=== PATIENT | male | born 1955 | race Caucasian/White ===

== ENCOUNTER 2020-03-25 10:45 | Outpatient (REF) | payer MEDICARE, SELFPAY | END 2020-03-25 10:46 | disposition home or self-care (01) | LOC: HO.LAB 10:45 | PROVIDERS: PCP Internal Medicine; Visit Provider Internal Medicine | DX: Z20.828 Contact with and (suspected) exposure to other viral communicable diseases (principal) | CPT/HCPCS: C9803; U0003 ==

== ENCOUNTER 2021-05-25 15:17 | Emergency (ER) | payer MEDICARE, SELFPAY ==
--- NOTE | ~2021-05-25 | XR_ITS ---
EXAMINATION: XR LUMBOSACRAL SPINE CLINICAL INFORMATION: Back injury COMPARISON: None TECHNIQUE: Three views of the lumbosacral spine. FINDINGS: No acute fracture or malalignment. Mild levoconvex lumbar scoliosis, apex left at L2-L3. Moderate loss of disc space height at L1-L2, L2-L3 and L4-L5 with accompanying endplate sclerosis. Prominent osteophytes present throughout the lumbar spine. Mild bilateral sacroiliac arthrosis. Paraspinal soft tissues unremarkable. XR/XR lumbar spine 2-3V IMPRESSION: No acute findings. Lumbar spondylosis as described.
--- NOTE | ~2021-05-25 | XR_ITS ---
EXAMINATION: XR PELVIS CLINICAL INFORMATION: Pain. Fell on ice 5 days ago. COMPARISON: Right hip radiograph dated 07/04/2017 TECHNIQUE: AP view of the pelvis. FINDINGS: Mild osteoarthritis in both hips with marginal osteophytes and nonuniform joint space narrowing. Comment deformities are noted. No acute fracture or malalignment on these images. 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 Phleboliths are present in the central pelvis. XR/XR pelvis 1-2V IMPRESSION: No acute fracture or malalignment in the pelvis. Mild osteoarthritis in the hips.
[2021-05-25 15:42] VITALS: BP 130/72; PULSE 58; RESP 18; TEMP 36.8; O2SAT 98; BMI 24.4
--- NOTE | 2021-05-25 17:13 | ED.FALL ---
HPI - Fall General Chief Complaint: Fall Stated Complaint: fell on ice back inj Time Seen by Provider: 05/25/21 17:13 Source: patient Mode of arrival: ambulatory Limitations: no limitations History of Present Illness HPI Narrative: 66 yo male healthy here with complaints of slip and fall on ice last . No head strike or LOC. Landed on right buttocks. Having pain since. No radiation of pain. No numbness, tingling, saddle anesthesia, bowel or bladder incontinence. No fevers, chills Related Data Previous Rx's Medication Instructions Recorded cyclobenzaprine 10 mg tablet 10 mg PO TID PRN #10 tab 05/25/21 lidocaine 5 % topical patch 1 patch TOPICAL DAILY #15 ea 05/25/21 (Lidoderm) Allergies Allergy/AdvReac Type Severity Reaction Status Date / Time No Known Allergies Allergy Verified 05/25/21 17:12 [No Known Allergies*] Review of Systems Review of Systems: Yes all other systems are reviewed and are negative Constitutional: Constitutional: Reports no additional constitutional complaints, Denies body ache(s), Denies chills, Denies fever(s), Denies headache(s) and Denies weakness Eyes: Eyes: Reports no additional eye complaints and Denies change in vision ENT: Reports system reviewed and no additional complaints, except as documented, Denies dizziness, Denies headache(s), Denies nasal congestion, Denies nasal discharge and Denies neck pain Cardiovascular: Cardiovascular: Reports no additional cardiovascular complaints, Denies chest pain, Denies leg edema and Denies dyspnea Respiratory: Respiratory: Reports no additional respiratory complaints, Denies cough and Denies dyspnea Gastrointestinal: Gastrointestinal: Reports no additional gastrointestinal complaints, Denies abdominal pain, Denies diarrhea, Denies nausea and Denies vomiting Genitourinary: Genitourinary: Denies urinary incontinence Musculoskeletal: Musculoskeletal: Reports no additional musculoskeletal complaints, Reports back pain, Denies arthralgias, Denies joint swelling, Denies neck pain, Denies numbness and Denies tingling Integumentary/Breasts: Skin/Breast: Reports system reviewed and no additional complaints, except as docu and Denies rash Neurologic: Reports system reviewed and no additional complaints, except as documented, Denies Abnormal speech present, Denies dizziness, Denies headache(s), Denies numbness, Denies tingling and Denies weakness FOR[facility]LY [facility] Past Medical History Attestation statement: The following information was validated with the patient. Source: old records reviewed and nursing notes reviewed Social History Social History Advance Directives: No Advance Directives Information Provided: No Physical Exam Vital Signs: Vital Signs: Last Vital Signs Temp 98.2 F 05/25/21 15:42 Pulse 58 05/25/21 15:42 Resp 18 05/25/21 15:42 BP 130/72 05/25/21 15:42 Pulse Ox 98 05/25/21 15:42 BMI result Body Mass Index 24.4 Const: General: cooperative, healthy appearing, comfortable and no acute distress Orientation/consciousness: patient oriented x3 Limitations: no limitations HENMT: Head: Yes normal to inspection Ears: hearing grossly normal bilaterally General nose exam: Normal external nose present Face and sinus: Yes normal facial exam Mouth: Normal oral and palatal mucosa present Throat: Yes posterior oropharynx normal Eyes: General: appearance normal, both eyes and all related structures Pupils: Equal, round and reactive pupils present Neck: Neck: Yes normal visual inspection Chest: Chest palpation & inspection: normal inspection of the chest Resp: Effort & Inspection: normal respiratory effort Auscultation: clear to auscultation bilaterally Cardio: Rate: regular rate Rhythm: regular rhythm Peripheral pulses: Peripheral pulses 2+ throughout GI: Inspection: Yes normal to inspection Palpation (GI): Soft to palpation and nontender Auscultation: normal bowel sounds : General: Yes no CVA tenderness Back/Spine/Pelvis: Other: no midline lumbar tenderness, step offs or deformities Pain worsened with straight leg raise Back: no CVA tenderness Thoracic/Lumbar Spine: thoracic and lumbar spine normal to inspection Sacroiliac joints: on the right tender to palpation and by passive hyperextension of lower ext Skin: General skin exam: no rashes or lesions noted Neuro: General: patient oriented x3, no focal motor deficits and normal sensation to monofilament Cranial nerves: Yes CN's II-XII intact bilaterally, Yes Equal, round and reactive pupils present, Yes Bilaterally intact EOM present, Yes Nystagmus not present, Yes Normal facial strength present and Yes Midline tongue present Cognition (Neuro): normal cognition Speech: No Abnormal speech present Gait exam (Neuro): Normal gait present Motor exam (neuro): 5/5 motor strength present throughout Sensory Exam: Normal double simultaneous stimulation for sensation Deep tendon reflexes (DTR's): Right patellar reflex intensity grade: 2+ and Left patellar reflex intensity grade: 2+ Coordination: [id number] test normal, [id number] test normal and tandem gait normal Extrem: General: Yes normal to inspection Course Course Course Narrative: 66yo male here with right lower back pain after slip and fall. No head strike or LOC. Will check x-rays. 1914-x-ray show no bony abnormalities. Likely contusion. Reviewed worrisome signs and symptoms of when to return to the emergency department. Comfortable discharge home. MDM - Fall Medical Records Attestation: I reviewed the patient's medical records. Lab Data Attestation: I reviewed the patient's lab results. Imaging Data lumbar x-ray: Attestation: I personally reviewed and interpreted this imaging study as follows: Radiologist's impression: [address] [address] XRay Report Signed Patient: Hank Naqvi MR#: [id number] : 1955 Acct:[id number] Age/Sex: 66 / M ADM Date: 05/25/21 Loc: HO.ED Attending Dr: Ordering Physician: Annetta ED Physician Date of Service: 05/25/21 Procedure(s): XR lumbar spine 2-3V Accession Number(s): [id number] cc: Generic ED Physician~ EXAMINATION: XR LUMBOSACRAL SPINE CLINICAL INFORMATION: Back injury COMPARISON: None TECHNIQUE: Three views of the lumbosacral spine. FINDINGS: No acute fracture or malalignment. Mild levoconvex lumbar scoliosis, apex left at L2-L3. Moderate loss of disc space height at L1-L2, L2-L3 and L4-L5 with accompanying endplate sclerosis. Prominent osteophytes present throughout the lumbar spine. Mild bilateral sacroiliac arthrosis. Paraspinal soft tissues unremarkable. XR/XR lumbar spine 2-3V IMPRESSION: No acute findings. Lumbar spondylosis as described. pelvis x-ray: Attestation: I personally reviewed and interpreted this imaging study as follows: Radiologist's impression: [address] [address] XRay Report Signed Patient: Hank Naqvi MR#: [id number] : 1955 Acct:[id number] Age/Sex: 66 / M ADM Date: 05/25/21 Loc: HO.ED Attending Dr: Ordering Physician: Darcie Keller NP Date of Service: 05/25/21 Procedure(s): XR pelvis 1-2V Accession Number(s): [id number] cc: Darcie Keller NP~ EXAMINATION: XR PELVIS CLINICAL INFORMATION: Pain. Fell on ice 5 days ago.? COMPARISON: Right hip radiograph dated 07/04/2017? TECHNIQUE: AP view of the pelvis. FINDINGS: Mild osteoarthritis in both hips with marginal osteophytes and nonuniform joint space narrowing. Comment deformities are noted. No acute fracture or malalignment on these images. 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 Phleboliths are present in the central pelvis.? XR/XR pelvis 1-2V IMPRESSION: No acute fracture or malalignment in the pelvis. ? Mild osteoarthritis in the hips. Discharge Plan Discharge Clinical Impression: Back contusion Qualifiers: Encounter type: initial encounter Laterality: right Qualified Code(s): S20.221A - Contusion of right back wall of thorax, initial encounter Patient Disposition: Home, Self-Care Instructions: Contusion in Adults (ED), Lower Back Exercises (ED) Additional Instructions: X-ray show no bony abnormality Ice to the area Gentle stretching Follow-up with Doctor in 1 week for continued symptoms Continued Motrin Prescriptions: New lidocaine [Lidoderm] 5 % adhesive patch,medicated 1 patch topical DAILY Qty: 15 RF: 0 cyclobenzaprine 10 mg tablet 10 mg PO TID PRN (Reason: muscle spasm) Qty: 10 RF: 0 Referrals: Frank Murphy MD [Primary Care Provider] - 2 days Interventions: ED Discharge Assessment Last Done: 05/25/21 18:45 Discharge Date/Time: 05/25/21 18:46
== END 2021-05-25 18:46 | disposition home or self-care (01) ==
PROVIDERS: Emergency Provider Emergency Medicine; PCP Internal Medicine
DX: S20.221A Contusion of right back wall of thorax, initial encounter (principal); W00.0XXA Fall on same level due to ice and snow, initial encounter; Y93.01 Activity, walking, marching and hiking; Y92.9 Unspecified place or not applicable; Y99.9 Unspecified external cause status
CPT/HCPCS: 72100; 72170; 99283

== ENCOUNTER 2021-07-13 09:36 | Outpatient (REF) | payer MEDICARE, SELFPAY ==
--- NOTE | ~2021-07-13 | XR_ITS ---
EXAMINATION: XR TIBIA AND FIBULA, LEFT CLINICAL INFORMATION: This is a 66-year-old male with disorders of bone, lower leg. COMPARISON: Comparison is made to a knee study dated 02/23/2016. TECHNIQUE: AP and lateral views of the left tibia and fibula were obtained. Medial compartment joint space narrowing within the left knee. Marginal osteophytes in all 3 compartments. Small effusion. No fracture or malalignment. There is benign-appearing linear calcification in the soft tissues in the mid calf. No fracture or dislocation is seen. There is nonspecific minimal soft tissue thickening anterior to the tibia in the upper calf. No calcification is seen in this region. Etiology for this thickening is unclear. The adjacent bone appears within normal limits. XR/XR tibia fibula LT 2V IMPRESSION: 1. Tricompartment arthritis left knee which is progressed when compared to the previous study. Moderate medial compartment arthritis. 2. There is nonspecific asymmetric thickening in the soft tissues anterior to the proximal tibia of uncertain etiology. A follow-up study to demonstrate resolution is recommended. This may be possible to follow with ultrasound.
== END 2021-07-13 09:37 | disposition home or self-care (01) ==
LOC: HO.XRAY 09:36
PROVIDERS: Absent Provider Internal Medicine; PCP Internal Medicine; Visit Provider Family Medicine
DX: M89.8X6 Other specified disorders of bone, lower leg (principal)
CPT/HCPCS: 73590

== ENCOUNTER 2021-08-06 13:56 | Outpatient (REF) | payer MEDICARE, SELFPAY ==
--- NOTE | ~2021-08-06 | US_ITS ---
EXAMINATION: ULTRASOUND EXTREMITY NONVASCULAR CLINICAL INFORMATION: Left thornton COMPARISON: Previous lower leg x-ray July 2021 TECHNIQUE: Grayscale and color imaging of the soft tissues of the left thornton using a linear transducer FINDINGS: There is a complex fluid collection seen deep to the skin measuring 4 x 1 x 0.9 cm. This is nonvascular. If there is history of trauma, this may represent a liquefying hematoma. Differential would include an abscess. US/US extremity nonvascular IMPRESSION: 4 x 1 x 0.9 cm complex fluid collection lesion. This may represent a liquefying hematoma if there is history of trauma. Differential would include an abscess.
== END 2021-08-06 13:57 | disposition home or self-care (01) ==
LOC: HO.HMGCX 13:56
PROVIDERS: Visit Provider Internal Medicine
DX: R22.42 Localized swelling, mass and lump, left lower limb (principal)
CPT/HCPCS: 76882

== ENCOUNTER 2022-08-12 09:47 | Outpatient (REF) | payer MEDICARE, SELFPAY ==
[2022-08-12 11:44] LABS: Anion Gap 10 (12-20); Blood Urea Nitrogen 19 mg/dL (9-16); Calcium 8.8 mg/dL (8.4-10.2); Carbon Dioxide 25 mmol/L (22-29); Chloride 111 mmol/L (96-108); Estimated Glomerular Filt Rate > 60; Glucose Random 95 mg/dL (60-115); Potassium 4.7 mmol/L (3.3-5.1); Sodium 141 mmol/L (135-145)
[2022-08-12 12:04] LABS: TSH reflex Free T4 1.47 uIU/mL (0.32-4.0)
== END 2022-08-12 09:48 | disposition home or self-care (01) ==
LOC: HO.LAB 09:47
PROVIDERS: PCP Internal Medicine; Referring Provider Internal Medicine; Visit Provider Internal Medicine Cardiovascular Disease
DX: R00.2 Palpitations (principal)
CPT/HCPCS: 36415; 80048; 84443; 93005; 99202

== ENCOUNTER → 2022-08-23 10:49 | Outpatient (REF) | payer MEDICARE, SELFPAY ==
--- NOTE | 2022-08-23 10:53 | CA_ITS ---
Transthoracic Echocardiogram Amended Patient (Last, First, Middle): Hank Naqvi, Gender: Male Date of : 1955 Age: 67 Procedure Date: 08/23/2022 Procedure Type: Transthoracic Echocardiogram Location: OP Height: 182.88 cm Weight: 83.92 kg BSA: 2.06 m2 Heart Rate: bpm BP: 138 / 82 mmHg Drilling Machine Operator: TO Referring MD: Dejan Velasquez MD Symptoms: R00.2 - Palpitations Study Quality: Fair ECG Rhythm: Sinus Conclusions: - The left ventricular systolic function is normal. The calculated ejection fraction is 68% by biplane method. - The left atrium is moderately dilated. - No obvious valvular pathology seen on this study. - There is mild dilatation of the ascending aorta measuring 4.10 cm. Findings Left Ventricle Normal left ventricular cavity size. The left ventricular systolic function is normal. The calculated ejection fraction is 68% by biplane method. There is no evidence of regional wall motion abnormalities. Diastolic function is normal for age. There is mild septal asymmetric hypertrophy. LV peak GLS 17.7%. Right Ventricle Normal right ventricular cavity size and systolic function. Atria The left atrium is moderately dilated. The right atrium is normal in size. Aortic Valve There is a normal trileaflet aortic valve. There is no aortic valve stenosis. There is no aortic valve regurgitation. Mitral Valve The mitral valve appears normal. There is trace mitral valve regurgitation. There is no mitral valve stenosis. Pulmonic Valve There is trace pulmonic valve regurgitation. Tricuspid Valve Normal tricuspid valve structure. There is no tricuspid valve regurgitation. There is no evidence of pulmonary hypertension. Great Vessels There is mild dilatation of the ascending aorta measuring 4.10 cm. Venous The inferior vena cava is normal in size and collapses greater than 50% with inspiration. Pericardium/Pleural There is no evidence of pericardial effusion. Prior Study Comparison No prior study available for comparison. Recommendations, Care & Conclusions No obvious valvular pathology seen on this study. Measurements 2D Linear Measurements IVSd: 1.18 0.6-0.9/0.6-1.0 cm LVIDd: 4.80 3.9-5.3/4.2-5.9 cm LVIDd Index: 2.33 2.4-3.2/2.2-3.1 cm/m2 LVIDs: 2.90 2.0-3.6 cm LVPWd: 0.96 0.7-1.1 cm LA Diam: 3.80 2.7-3.8/3.0-4.0 cm LAIDs Index: 1.84 1.5-2.3 cm/m2 LV Mass: 233.06 67-162/88-224 g LV Mass Index: 113.14 43-95/49-115 g/m2 LVOT Diam: 2.40 3.0+(-)1.3 cm 2D Volumes LA Vol: 38.40 2D Systolic Function EF 4C: 64.10 >55% EF 2C: 69.80 >55% EF BiP: 67.90 >55% Mitral Valve MV Pk E: 0.68 MV PK A: 0.45 MV Decel Time: 196.00 E/A: 1.50 E'Lateral: 9.68 E'Medial: 5.77 E/E' Med: 11.70 E/E' Lat: 7.00 PHT: 57.00 MVA PHT: 3.86 Decel Swain: 3.45 Aortic Valve AoV Pk Chase: 1.26 AoV Mn Chase: 0.86 AoV VTI: 0.32 AoV Pk Grad: 6.00 Aov Mn Grad: 3.00 CHINO Cont.VTI: 3.74 LVOT LVOT Pk Chase: 1.05 LVOT Mn Chsae: 0.78 LVOT VTI: 0.27 LVOT Pk Grad: 4.00 LVOT Mn Grad: 3.00 LVOT Diam: 2.40 LVOT Area: 4.52 Diastolic Function MV Pk E: 0.68 MV Pk A: 0.45 E/A: 1.50 E'Medial: 5.77 E/E' Med: 11.70 E' Laterial: 9.68 E/E' Lat: 7.00 Right Ventricle TAPSE (mm): 28.60 TVS' Chase: 12.20 Tricuspid Valve TR Pk Chase: 1.17 TR Pk Grad: 5.00 RA Press: 3.00 RVSP: 8.00 Great Vessels Aorta Sinus of Valsalva: 4.07 2.0-3.[address] Ridge: 2.80 1.7-3.4 cm Ao Asc: 4.10 2.1-3.4 cm Updated in Other Vendor System with Status of Final Jayy Schuster MD electronically signed on 08/24/2022 5:11:51 PM with status of Final
--- NOTE | 2022-08-23 10:53 | HM_ITS ---
* Total monitoring time 30 days. Wear time is 23.7 days. * Underlying rhythm is sinus. Average ventricular rate is 63/Min. Range 48 to 127/Min. * Occasional supraventricular ectopy. Hancock of 1.3% * Very brief runs noted. Probably runs of PACs/atrial tachycardia. No definite atrial fibrillation. * Rare ventricular ectopy. * No sustained arrhythmias. * Various symptoms documented including racing, irregular beats, fast beats, dizziness, lightheadedness, palpitations, nausea, vomiting, sweating tiredness, weak pulse, fainting at different times. These correlate with either sinus rhythm or supraventricular ectopy. MTDD
== END ==
LOC: HO.CARD 10:49
PROVIDERS: PCP Internal Medicine; Visit Provider Internal Medicine Cardiovascular Disease
DX: R00.2 Palpitations (principal)
CPT/HCPCS: 93270; 93306; 93356

== ENCOUNTER 2022-08-31 15:25 | Emergency (ER) | payer MEDICARE, SELFPAY ==
[2022-08-31 15:35] VITALS: BP 149/86; PULSE 59; RESP 18; TEMP 36.1; O2SAT 97; BMI 25.7
--- NOTE | 2022-08-31 15:35 | ED_ITS ---
HPI - General Adult General Chief complaint: General Medical <ROCÍO Valentin - Last Filed: 08/31/22 15:39> Stated complaint: nausea,fatigue,dizziness,l arm numbness <ROCÍO Valentin - Last Filed: 08/31/22 15:39> Time Seen by Provider: 08/31/22 17:06 <ROCÍO Valentin - Last Filed: 08/31/22 15:39> Source: patient, RN notes reviewed and old records reviewed <Daniele Liang - Last Filed: 08/31/22 17:41> Mode of arrival: ambulatory <Daniele Liang - Last Filed: 08/31/22 17:41> Limitations: no limitations <Daniele Liang - Last Filed: 08/31/22 17:41> History of Present Illness HPI narrative: 67-year-old male past medical history significant for palpitations presents for evaluation of nausea, fatigue and headaches. Patient reports that he has had increased palpitations over the last month or so. He is currently following with Dr. Velasquez. The patient has a Holter monitor on that has been a place for the last 10 days and he is due to have it for 1 month. He denies any chest pain, shortness of breath. Over the last week or so he has noticed increased fatigue, bags wonders ice. He also endorses nausea without abdominal pain The patient states that since last weekend he has had ?momentary lapses in consciousness. ? He states ?I feel like I reach for something and then there is a momentary pause before I continue and is not a smooth motion. He states that this has ever happened before The patient admits that he takes ibuprofen 600 mg twice daily for the last 5 years for chronic knee pain <Daniele Liang - Last Filed: 08/31/22 17:41> Related Data Home medications: Previous Rx's Medication Instructions Recorded cyclobenzaprine 10 mg tablet 10 mg PO TID PRN muscle spasm #10 05/25/21 tabs lidocaine 5 % topical patch 1 patch topical DAILY #15 ea 05/25/21 (Lidoderm) <ROCÍO Valentin Last Filed: 08/31/22 15:39> Allergies/adverse reactions: Allergies Allergy/AdvReac Type Severity Reaction Status Date / Time No Known Allergies Allergy Verified 08/31/22 15:35 [No Known Allergies*] <ROCÍO Valentin - Last Filed: 08/31/22 15:39> Review of Systems Constitutional: Constitutional: Reports as per HPI, Denies chills, Reports fatigue, Denies fever(s) and Reports headache(s) <Daniele Liang - Last Filed: 08/31/22 17:41> ENT: Reports headache(s) <Danielejaleel Kendricky - Last Filed: 08/31/22 17:41> Cardiovascular: Cardiovascular: Denies chest pain and Denies dyspnea <Daniele OBrian - Last Filed: 08/31/22 17:41> Respiratory: Respiratory: Denies cough and Denies dyspnea <Daniele O Last Filed: 08/31/22 17:41> Gastrointestinal: Gastrointestinal: Denies abdominal pain, Denies constipation, Reports nausea and Denies vomiting <Daniele OBrian - Last Filed: 08/31/22 17:41> Genitourinary: Genitourinary: Denies difficulty urinating and Denies dysuria <Daniele Kendricky - Last Filed: 08/31/22 17:41> Musculoskeletal: Musculoskeletal: Denies arthralgias and Denies joint swelling <Daniele OBrian - Last Filed: 08/31/22 17:41> Neurologic: Reports headache(s) and Denies focal weakness <Danielejaleel Kendricky - Last Filed: 08/31/22 17:41> Endocrine: Endocrine: Reports fatigue <Daniele Kendricky - Last Filed: 08/31/22 17:41> [facility] Past Medical History Surgical History: Surgical History (Updated 08/12/22 @ 10:21 by Tracey Valdez) History of knee surgery <ROCÍO Valentin - Last Filed: 08/31/22 15:39> Family History Family History: Family History (Updated 08/12/22 @ 10:23 by Tracey Valdez) Mother No problems noted. Brother Afib <ROCÍO Valentin - Last Filed: 08/31/22 15:39> Social History Social History: Social History Advance Directives: Yes Advance Directives Information Provided: No Advance Directives on File: No <ROCÍO Valentin - Last Filed: 08/31/22 15:39> Physical Exam ED Vital Signs: Vital Signs - 24 hr 08/31/22 15:35 Temperature 96.9 F Pulse Rate 59 Respiratory Rate 18 Blood Pressure 149/86 H Pulse Oximetry 97 Oxygen Delivery Method Room Air BMI result Body Mass Index 25.7 <ROCÍO Valentin - Last Filed: 08/31/22 15:39> Vital Signs - 24 hr 08/31/22 15:35 Temperature 96.9 F Pulse Rate 59 Respiratory Rate 18 Blood Pressure 149/86 H Pulse Oximetry 97 Oxygen Delivery Method Room Air BMI result Body Mass Index 25.7 <Daniele - Last Filed: 08/31/22 17:41> Const General: healthy appearing, comfortable, no acute distress, alert and awake < - Last Filed: 08/31/22 17:41> Nutritional Appearance: well nourished < Last Filed: 08/31/22 17:41> Orientation/consciousness: patient oriented x3 < Last Filed: 08/31/22 17:41> HENMT Head: Yes normocephalic and Yes atraumatic < Last Filed: 08/31/22 17:41> Throat: Yes posterior oropharynx normal < - Last Filed: 08/31/22 17:41> Eyes Eyelids: Yes eyelids normal < Last Filed: 08/31/22 17:41> Conjunctivae: conjunctivae normal < - Last Filed: 08/31/22 17:41> Sclerae: sclerae normal < Last Filed: 08/31/22 17:41> Corneas: corneas normal < Last Filed: 08/31/22 17:41> Pupils: Equal, round and reactive pupils present < Last Filed: 08/31/22 17:41> EOM: EOMs intact bilaterally < Last Filed: 08/31/22 17:41> Neck Neck: Yes full ROM < Last Filed: 08/31/22 17:41> Resp Effort & Inspection: normal respiratory effort, able to speak in complete sentences, no audible wheezes and not labored < Last Filed: 08/31/22 17:41> Auscultation: clear to auscultation bilaterally < Last Filed: 08/31/22 17:41> Cardio Rate: regular rate < - Last Filed: 08/31/22 17:41> Rhythm: regular rhythm < Last Filed: 08/31/22 17:41> GI Inspection: No distended < Last Filed: 08/31/22 17:41> Palpation (GI): Soft to palpation, not firm, nontender, no guarding and not rigid < Last Filed: 08/31/22 17:41> Auscultation: normoactive bowel sounds < Last Filed: 08/31/22 17:41> Skin General skin exam: no rashes or lesions noted and elasticity normal < Last Filed: 08/31/22 17:41> Neuro General: patient oriented x3 < Last Filed: 08/31/22 17:41> Cranial nerves: Yes CN's II-XII intact bilaterally, Yes Equal, round and reactive pupils present and Yes Bilaterally intact EOM present < Last Filed: 08/31/22 17:41> Cognition (Neuro): normal cognition < Last Filed: 08/31/22 17:41> Coordination: [id number] test normal, tandem gait normal and Romberg test negative < Last Filed: 08/31/22 17:41> Extrem Other: Moving all extremities well without any obvious deformities < Last Filed: 08/31/22 17:41> Course Course Course Narrative: This is an RME: Additional HPI, ROS, PE not included below will be deferred to primary provider. 67 year old M with PMH of PAC and palpitations presents to the ED with reported low grade fever, CP and nausea. Patient reports CP is currently a 2/10. Additionally, patient reports palpitations seizure. Patient reports numbness of his left elbow that flares with his palpitations. PE: benign Plan: Labs, EKG <ROCÍO Valentin - Last Filed: 08/31/22 15:39> Medical Decision Making Medical Decision Making MDM Narrative: 67-year-old male presents for evaluation of numerous complaints. He st ates he has had headaches for last week but does not currently have a headache. He reports nausea that is actually better today. I am unsure what to make of the patient's reported ?lapses in consciousness. ? he does not describe seizure- like activity. His neurologic including cerebellar exam are without abnormalities. His labs are within normal limits. He is currently following with cardiology for the palpitations and has a Holter monitor in place. I did discuss potential CT scan the brain given the patient's intermittent headaches, nausea and changes in his movement. The patient declines at this time and would prefer to follow-up with his PCP. <aDniele Liang - Last Filed: 08/31/22 17:41> Differential Diagnosis Palpitations Viral syndrome Anxiety Nausea and vomiting Intracranial tumor CVA less likely Cardiac arrhythmia Gastritis <Daniele Liang - Last Filed: 08/31/22 17:41> Lab Data [facility] Lab Attestation statement: I reviewed the patient's lab results. <Daniele Liang - Last Filed: 08/31/22 17:41> Result Diagrams: 08/31/22 16:24 08/31/22 16:24 <ROCÍO Valentin - Last Filed: 08/31/22 15:39> Labs: Lab Results 08/31/22 08/31/22 08/31/22 Range/Units 16:24 16:24 16:24 WBC 7.2 (4.8-10.8) X10*3/uL RBC 4.77 (4.60-5.80) X10*6/uL Hgb 14.4 (14.0-18.0) g/dl Hct 44.4 (42.0-52.0) % MCV 93.1 (80.0-98.0) fL MCH 30.2 (27.0-33.0) pg MCHC 32.4 (31.0-36.0) g/dl RDW 13.6 (11.0-16.0) % Plt Count 225 (160-400) X10*3/uL MPV 10.6 (9.4-12.4) fL Immature Gran % (Auto) 0.1 (0.0-0.4) % Neut % (Auto) 56.9 (45-73) % Lymph % (Auto) 29.3 (20-40) % [place] % (Auto) 9.4 (2-11) % Eos % (Auto) 3.3 (0-4) % Baso % (Auto) 1.0 (0-2) % Lymph # (Auto) 2.1 (1.2-4.9) X10*3/uL [place] # (Auto) 0.7 (0.1-1.2) X10*3/uL Eos # (Auto) 0.2 (0.0-0.4) X10*3/uL Baso # (Auto) 0.1 (0.0-0.2) X10*3/uL Abs Immat Gran (auto) 0.01 (0.00-0.03) X10*3/uL Absolute Neuts (auto) 4.1 (2.0-8.3) x10*3/uL Absolute Nucleated RBC 0.000 (0.0-0.012) X10*3/uL Nucleated RBC % (auto) 0.0 (0.0-0.2) /100WBC Sodium 144 (135-145) mmol/L Potassium 4.4 (3.3-5.1) mmol/L Chloride 113 H (96-108) mmol/L Carbon Dioxide 25 (22-29) mmol/L Anion Gap 10 L (12-20) BUN 22 H (9-16) mg/dL Creatinine 0.90 (0.5-1.4) mg/dL Estim Creat Clear Calc 85.0 Estimated GFR > 60 Random Glucose 91 (60-115) mg/dL Calcium 8.5 (8.4-10.2) mg/dL Magnesium 2.0 (1.6-2.6) mg/dL Total Bilirubin 0.4 (0.0-1.0) mg/dL AST 19 (5-37) U/L ALT 17 (0-40) U/L Alkaline Phosphatase 56 (39-117) U/L Troponin I High Sens < 2.7 (<3.5-35.0) ng/L B-Natriuretic Peptide (<100) pg/mL Total Protein 6.5 (6.5-8.0) g/dL Albumin 4.0 (3.5-5.0) g/dL Lipase 20 (8-78) U/L COVID-19 (LIGIA) (Negative) COVID-19 Clin Com 08/31/22 08/31/22 Range/Units 16:24 16:24 WBC (4.8-10.8) X10*3/uL RBC (4.60-5.80) X10*6/uL Hgb (14.0-18.0) g/dl Hct (42.0-52.0) % MCV (80.0-98.0) fL MCH (27.0-33.0) pg MCHC (31.0-36.0) g/dl RDW (11.0-16.0) % Plt Count (160-400) X10*3/uL MPV (9.4-12.4) fL Immature Gran % (Auto) (0.0-0.4) % Neut % (Auto) (45-73) % Lymph % (Auto) (20-40) % [place] % (Auto) (2-11) % Eos % (Auto) (0-4) % Baso % (Auto) (0-2) % Lymph # (Auto) (1.2-4.9) X10*3/uL [place] # (Auto) (0.1-1.2) X10*3/uL Eos # (Auto) (0.0-0.4) X10*3/uL Baso # (Auto) (0.0-0.2) X10*3/uL Abs Immat Gran (auto) (0.00-0.03) X10*3/uL Absolute Neuts (auto) (2.0-8.3) x10*3/uL Absolute Nucleated RBC (0.0-0.012) X10*3/uL Nucleated RBC % (auto) (0.0-0.2) /100WBC Sodium (135-145) mmol/L Potassium (3.3-5.1) mmol/L Chloride (96-108) mmol/L Carbon Dioxide (22-29) mmol/L Anion Gap (12-20) BUN (9-16) mg/dL Creatinine (0.5-1.4) mg/dL Estim Creat Clear Calc Estimated GFR Random Glucose (60-115) mg/dL Calcium (8.4-10.2) mg/dL Magnesium (1.6-2.6) mg/dL Total Bilirubin (0.0-1.0) mg/dL AST (5-37) U/L ALT (0-40) U/L Alkaline Phosphatase (39-117) U/L Troponin I High Sens (<3.5-35.0) ng/L B-Natriuretic Peptide 68 (<100) pg/mL Total Protein (6.5-8.0) g/dL Albumin (3.5-5.0) g/dL Lipase (8-78) U/L COVID-19 (LIGIA) Negative (Negative) COVID-19 Clin Com See Note <ROCÍO Valentin - Last Filed: 08/31/22 15:39> Lab Results 08/31/22 08/31/22 08/31/22 Range/Units 16:24 16:24 16:24 WBC 7.2 (4.8-10.8) X10*3/uL RBC 4.77 (4.60-5.80) X10*6/uL Hgb 14.4 (14.0-18.0) g/dl Hct 44.4 (42.0-52.0) % MCV 93.1 (80.0-98.0) fL MCH 30.2 (27.0-33.0) pg MCHC 32.4 (31.0-36.0) g/dl RDW 13.6 (11.0-16.0) % Plt Count 225 (160-400) X10*3/uL MPV 10.6 (9.4-12.4) fL Immature Gran % (Auto) 0.1 (0.0-0.4) % Neut % (Auto) 56.9 (45-73) % Lymph % (Auto) 29.3 (20-40) % [place] % (Auto) 9.4 (2-11) % Eos % (Auto) 3.3 (0-4) % Baso % (Auto) 1.0 (0-2) % Lymph # (Auto) 2.1 (1.2-4.9) X10*3/uL [place] # (Auto) 0.7 (0.1-1.2) X10*3/uL Eos # (Auto) 0.2 (0.0-0.4) X10*3/uL Baso # (Auto) 0.1 (0.0-0.2) X10*3/uL Abs Immat Gran (auto) 0.01 (0.00-0.03) X10*3/uL Absolute Neuts (auto) 4.1 (2.0-8.3) x10*3/uL Absolute Nucleated RBC 0.000 (0.0-0.012) X10*3/uL Nucleated RBC % (auto) 0.0 (0.0-0.2) /100WBC Sodium 144 (135-145) mmol/L Potassium 4.4 (3.3-5.1) mmol/L Chloride 113 H (96-108) mmol/L Carbon Dioxide 25 (22-29) mmol/L Anion Gap 10 L (12-20) BUN 22 H (9-16) mg/dL Creatinine 0.90 (0.5-1.4) mg/dL Estim Creat Clear Calc 85.0 Estimated GFR > 60 Random Glucose 91 (60-115) mg/dL Calcium 8.5 (8.4-10.2) mg/dL Magnesium 2.0 (1.6-2.6) mg/dL Total Bilirubin 0.4 (0.0-1.0) mg/dL AST 19 (5-37) U/L ALT 17 (0-40) U/L Alkaline Phosphatase 56 (39-117) U/L Troponin I High Sens < 2.7 (<3.5-35.0) ng/L B-Natriuretic Peptide (<100) pg/mL Total Protein 6.5 (6.5-8.0) g/dL Albumin 4.0 (3.5-5.0) g/dL Lipase 20 (8-78) U/L COVID-19 (LIGIA) (Negative) COVID-19 Clin Com 08/31/22 08/31/22 Range/Units 16:24 16:24 WBC (4.8-10.8) X10*3/uL RBC (4.60-5.80) X10*6/uL Hgb (14.0-18.0) g/dl Hct (42.0-52.0) % MCV (80.0-98.0) fL MCH (27.0-33.0) pg MCHC (31.0-36.0) g/dl RDW (11.0-16.0) % Plt Count (160-400) X10*3/uL MPV (9.4-12.4) fL Immature Gran % (Auto) (0.0-0.4) % Neut % (Auto) (45-73) % Lymph % (Auto) (20-40) % [place] % (Auto) (2-11) % Eos % (Auto) (0-4) % Baso % (Auto) (0-2) % Lymph # (Auto) (1.2-4.9) X10*3/uL [place] # (Auto) (0.1-1.2) X10*3/uL Eos # (Auto) (0.0-0.4) X10*3/uL Baso # (Auto) (0.0-0.2) X10*3/uL Abs Immat Gran (auto) (0.00-0.03) X10*3/uL Absolute Neuts (auto) (2.0-8.3) x10*3/uL Absolute Nucleated RBC (0.0-0.012) X10*3/uL Nucleated RBC % (auto) (0.0-0.2) /100WBC Sodium (135-145) mmol/L Potassium (3.3-5.1) mmol/L Chloride (96-108) mmol/L Carbon Dioxide (22-29) mmol/L Anion Gap (12-20) BUN (9-16) mg/dL Creatinine (0.5-1.4) mg/dL Estim Creat Clear Calc Estimated GFR Random Glucose (60-115) mg/dL Calcium (8.4-10.2) mg/dL Magnesium (1.6-2.6) mg/dL Total Bilirubin (0.0-1.0) mg/dL AST (5-37) U/L ALT (0-40) U/L Alkaline Phosphatase (39-117) U/L Troponin I High Sens (<3.5-35.0) ng/L B-Natriuretic Peptide 68 (<100) pg/mL Total Protein (6.5-8.0) g/dL Albumin (3.5-5.0) g/dL Lipase (8-78) U/L COVID-19 (LIGIA) Negative (Negative) COVID-19 Clin Com See Note <Daniele Liang - Last Filed: 08/31/22 17:41> Independent Interpretation I performed an independent interpretation of an: EKG (Sinus bradycardia with PAC) <Daniele Liang - Last Filed: 08/31/22 17:41> Discharge Plan Discharge Clinical Impression: Nausea, Heart palpitations <ROCÍO Valentin - Last Filed: 08/31/22 15:39> Patient Disposition: Home, Self-Care <ROCÍO Valentin Last Filed: 08/31/22 15:39> Instructions: Heart Palpitations (ED) <ROCÍO Valentin - Last Filed: 08/31/22 15:39> Additional Instructions: Your workup in the emergency room today was reassuring. This includes your EKG as well as blood work. Continue your follow-up with Cardiology. For your nausea, you may want to consider cutting back on your ibuprofen use and trying Tylenol instead. Return for any new or worsening symptoms We did discuss potential CT scan of the brain today but ultimately deferred this to outpatient testing <ROCÍO Valentin Last Filed: 08/31/22 15:39> Prescriptions: No Action lidocaine [Lidoderm] 5 % adhesive patch,medicated 1 patch topical DAILY Qty: 15 0RF Rx Instructions: leave on most painful area for up to 12 hrs cyclobenzaprine 10 mg tablet 10 mg PO TID PRN (Reason: muscle spasm) Qty: 10 0RF <ROCÍO Valentin - Last Filed: 08/31/22 15:39>
--- NOTE | 2022-08-31 15:37 | ECG_ITS ---
Test Reason : CP/PALPATATIONS Blood Pressure : / mmHG Vent. Rate : 058 BPM Atrial Rate : 058 BPM P-R Int : 226 ms QRS Dur : 080 ms QT Int : 422 ms P-R-T Axes : 019 -03 023 degrees QTc Int : 414 ms Sinus bradycardia with 1st degree A-V block with Premature supraventricular complexes Otherwise normal ECG No previous ECGs available Referred By: Cristine Dean Electronically Signed By:Sunil Recio
[2022-08-31 16:30] LABS: MANUAL DIFF FLAG NO
[2022-08-31 16:31] LABS: Basophils Absolute Auto 0.1 X10*3/uL (0.0-0.2); Eosinophils Absolute Auto 0.2 X10*3/uL (0.0-0.4); Eosinophils Percent Auto 3.3 % (0-4); Hematocrit 44.4 % (42.0-52.0); Hemoglobin 14.4 g/dl (14.0-18.0); Imm Gran Abs Auto 0.01 X10*3/uL (0.00-0.03); Imm Gran Pct Auto 0.1 % (0.0-0.4); Lymphocytes Absolute Auto 2.1 X10*3/uL (1.2-4.9); Lymphocytes Percent Auto 29.3 % (20-40); Mean Corpuscular HGB Conc 32.4 g/dl (31.0-36.0); Mean Corpuscular Hemoglobin 30.2 pg (27.0-33.0); Mean Corpuscular Volume 93.1 fL (80.0-98.0); Mean Platelet Volume 10.6 fL (9.4-12.4); Monocytes Absolute Auto 0.7 X10*3/uL (0.1-1.2); Monocytes Percent Auto 9.4 % (2-11); Neutrophils Absolute Auto 4.1 x10*3/uL (2.0-8.3); Neutrophils Percent Auto 56.9 % (45-73); Platelet Count 225 X10*3/uL (160-400); Red Blood Count 4.77 X10*6/uL (4.60-5.80); Red Cell Distribution Width 13.6 % (11.0-16.0); White Blood Count 7.2 X10*3/uL (4.8-10.8)
[2022-08-31 16:48] LABS: Alanine Aminotransferase 17 U/L (0-40); Alkaline Phosphatase 56 U/L (39-117); Anion Gap 10 (12-20); Aspartate Amino Transferase 19 U/L (5-37); Bilirubin Total 0.4 mg/dL (0.0-1.0); Blood Urea Nitrogen 22 mg/dL (9-16); Calcium 8.5 mg/dL (8.4-10.2); Carbon Dioxide 25 mmol/L (22-29); Chloride 113 mmol/L (96-108); Estimated Glomerular Filt Rate > 60; Glucose Random 91 mg/dL (60-115); Lipase 20 U/L (8-78); Potassium 4.4 mmol/L (3.3-5.1); Sodium 144 mmol/L (135-145); Total Protein 6.5 g/dL (6.5-8.0)
[2022-08-31 16:49] LABS: COVID-19 Test Negative (Negative); IDNOW Serial# 55D5AD1C
[2022-08-31 16:54] LABS: B Type Natriuretic Peptide 68 pg/mL (<100)
[2022-08-31 17:01] LABS: Troponin-I High Sensitivity < 2.7 ng/L (<3.5-35.0)
--- NOTE | 2022-08-31 17:41 | PC.NURSE ---
pt alert/oriented and not reporting pain at this moment. PA putting pt up for discharge. pt neuros intact, breathing even and non-labored.
== END 2022-08-31 18:21 | disposition home or self-care (01) ==
PROVIDERS: Physician Assistant; Emergency Provider Emergency Medicine Emergency Medical Services; PCP Internal Medicine
DX: R00.2 Palpitations (principal); R06.02 Shortness of breath; Z20.822 Contact with and (suspected) exposure to COVID-19; Z20.828 Contact with and (suspected) exposure to other viral communicable diseases; Z79.899 Other long term (current) drug therapy
CPT/HCPCS: 36415; 80053; 83690; 83735; 83880; 84484; 85025; 87635; 93005; 99283; 99284

== ENCOUNTER → 2022-10-20 12:49 | Outpatient (BNVA) | payer MEDICARE, SELFPAY | PROVIDERS: PCP Internal Medicine; Referring Provider Internal Medicine; Visit Provider Nurse Practitioner Family | DX: R00.2 Palpitations (principal); I49.1 Atrial premature depolarization; I77.810 Thoracic aortic ectasia | CPT/HCPCS: 99212 ==

== ENCOUNTER 2023-06-12 08:36 | Outpatient (REF) | payer MEDICARE, SELFPAY ==
[2023-06-12 14:42] LABS: MANUAL DIFF FLAG NO
[2023-06-12 14:52] LABS: Basophils Absolute Auto 0.1 X10*3/uL (0.0-0.2); Basophils Percent Auto 1.4 % (0-2); Eosinophils Absolute Auto 0.3 X10*3/uL (0.0-0.4); Eosinophils Percent Auto 5.6 % (0-4); Hematocrit 45.8 % (42.0-52.0); Hemoglobin 14.9 g/dl (14.0-18.0); Imm Gran Abs Auto 0.01 X10*3/uL (0.00-0.03); Imm Gran Pct Auto 0.2 % (0.0-0.4); Lymphocytes Absolute Auto 1.9 X10*3/uL (1.2-4.9); Lymphocytes Percent Auto 33.5 % (20-40); Mean Corpuscular HGB Conc 32.5 g/dl (31.0-36.0); Mean Corpuscular Hemoglobin 30.3 pg (27.0-33.0); Mean Corpuscular Volume 93.1 fL (80.0-98.0); Mean Platelet Volume 10.9 fL (9.4-12.4); Monocytes Absolute Auto 0.7 X10*3/uL (0.1-1.2); Monocytes Percent Auto 13.4 % (2-11); Neutrophils Absolute Auto 2.5 x10*3/uL (2.0-8.3); Neutrophils Percent Auto 45.9 % (45-73); Platelet Count 255 X10*3/uL (160-400); Red Blood Count 4.92 X10*6/uL (4.60-5.80); Red Cell Distribution Width 13.9 % (11.0-16.0); White Blood Count 5.5 X10*3/uL (4.8-10.8)
[2023-06-12 15:20] LABS: Alanine Aminotransferase 17 U/L (0-40); Albumin Level 3.9 g/dL (3.5-5.0); Alkaline Phosphatase 69 U/L (39-117); Anion Gap 12 (12-20); Aspartate Amino Transferase 25 U/L (5-37); Bilirubin Total 0.8 mg/dL (0.0-1.0); Blood Urea Nitrogen 21 mg/dL (9-16); Calcium 8.9 mg/dL (8.4-10.2); Carbon Dioxide 25 mmol/L (22-29); Chloride 110 mmol/L (96-108); Cholesterol 201 mg/dL (<200); Estimated Glomerular Filt Rate > 60; Glucose Random 68 mg/dL (60-115); HDL Cholesterol 54 mg/dL (>40); LDL Cholesterol Calculated 132 mg/dL (<100); Sodium 143 mmol/L (135-145); Total Protein 7.1 g/dL (6.5-8.0); Triglycerides 76 mg/dL (<150)
[2023-06-12 15:34] LABS: TSH reflex Free T4 1.59 uIU/mL (0.32-4.0)
[2023-06-12 15:41] LABS: Vitamin B12 851 pg/mL (200-900)
[2023-06-13 07:28] LABS: ~HepC Num1 0.09 S/CO (0.00-0.79); ~Hepatitis C Antibody Nonreactive (Nonreactive)
== END 2023-06-12 08:37 | disposition home or self-care (01) ==
LOC: HO.CHCLDS 08:36
PROVIDERS: Visit Provider Internal Medicine
DX: Z00.00 Encounter for general adult medical examination without abnormal findings (principal); M17.0 Bilateral primary osteoarthritis of knee; R20.0 Anesthesia of skin
CPT/HCPCS: 36415; 80053; 80061; 82607; 84443; 85025; 86803

== ENCOUNTER 2023-06-15 08:42 | Outpatient (REF) | payer MEDICARE, SELFPAY ==
--- NOTE | 2023-06-15 08:45 | EMG_ITS ---
Left tibial and peroneal motor studies were performed. Left superficial peroneal and sural sensory studies were performed. Tibial H-reflex was obtained, and needle examination was performed. IMPRESSION: 1. Mild sensory motor axonal peripheral neuropathy. 2. There is also evidence of chronic left mid to lower lumbar radiculopathy. MD DASHA Ayers/MIKE / [id number]
== END 2023-06-15 08:43 | disposition home or self-care (01) ==
LOC: HO.NEURO 08:42
PROVIDERS: PCP Internal Medicine; Visit Provider Internal Medicine
DX: R20.0 Anesthesia of skin (principal); R20.2 Paresthesia of skin
CPT/HCPCS: 95886; 95909

== ENCOUNTER 2023-06-27 13:41 | Outpatient (REF) | payer MEDICARE, SELFPAY ==
--- NOTE | ~2023-06-27 | XR_ITS ---
EXAMINATION: XR KNEE, BILATERAL CLINICAL INFORMATION: Bilateral knee pain. COMPARISON: 07/13/2021 tibia fibula TECHNIQUE: Four views of each knee. FINDINGS: LEFT KNEE: Severe degenerative changes in the medial compartment with loss of the joint space as well as destructive changes including subchondral sclerosis and remodeling. Degenerative changes in the patellofemoral joint with prominent hypertrophic change. Small joint effusion. Sclerotic lesions overlying the visualized distal femur and proximal tibia, possibly representing bone islands. RIGHT KNEE: Moderate joint effusion. Marked lateral joint space narrowing with destructive changes including remodeling and concavities along the subjacent articular surfaces as well as marginal osteophytes. Degenerative changes in the patellofemoral joint with prominent osteophytes. Abundant ossicles noted particularly along the posterior aspect of the knee on the lateral view. XR/XR knee RT 3V IMPRESSION: 1. Severe degenerative changes bilateral knees. 2. Sclerotic lesions overlying the visualized distal femur and proximal tibia, possibly representing bone islands. Correlation with clinical exam recommended.
--- NOTE | ~2023-06-27 | XR_ITS ---
EXAMINATION: XR KNEE, BILATERAL CLINICAL INFORMATION: Bilateral knee pain. COMPARISON: 07/13/2021 tibia fibula TECHNIQUE: Four views of each knee. FINDINGS: LEFT KNEE: Severe degenerative changes in the medial compartment with loss of the joint space as well as destructive changes including subchondral sclerosis and remodeling. Degenerative changes in the patellofemoral joint with prominent hypertrophic change. Small joint effusion. Sclerotic lesions overlying the visualized distal femur and proximal tibia, possibly representing bone islands. RIGHT KNEE: Moderate joint effusion. Marked lateral joint space narrowing with destructive changes including remodeling and concavities along the subjacent articular surfaces as well as marginal osteophytes. Degenerative changes in the patellofemoral joint with prominent osteophytes. Abundant ossicles noted particularly along the posterior aspect of the knee on the lateral view. XR/XR knee LT 3V IMPRESSION: 1. Severe degenerative changes bilateral knees. 2. Sclerotic lesions overlying the visualized distal femur and proximal tibia, possibly representing bone islands. Correlation with clinical exam recommended.
== END 2023-06-27 13:42 | disposition home or self-care (01) ==
LOC: HO.HHCX 13:41
PROVIDERS: Visit Provider Internal Medicine
DX: M17.0 Bilateral primary osteoarthritis of knee (principal)
CPT/HCPCS: 73562

== ENCOUNTER 2023-06-30 09:27 | Outpatient (REF) | payer MEDICARE, SELFPAY ==
[2023-06-30 15:29] LABS: Erythrocyte Sedimentation Rate 2 MM/HR (0-15)
[2023-07-09 14:04] LABS: Anti Nuclear Antibody Screen POSITIVE (NEGATIVE)
== END 2023-06-30 09:28 | disposition home or self-care (01) ==
LOC: HO.CHCLDS 09:27
PROVIDERS: Visit Provider Internal Medicine
DX: G62.89 Other specified polyneuropathies (principal)
CPT/HCPCS: 36415; 85652; 86038; 86039

== ENCOUNTER 2023-07-21 12:55 | Outpatient (REF) | payer MEDICARE, SELFPAY ==
--- NOTE | ~2023-07-21 | MR_ITS ---
EXAMINATION: MR LUMBAR SPINE WITHOUT CONTRAST CLINICAL INFORMATION: Lumbar radiculopathy, left lower extremity numbness COMPARISON: Lumbar spine x-ray on 05/25/2021 TECHNIQUE: MRI of the lumbar spine was obtained using routine sequences without contrast. FINDINGS: The visualized lumbar vertebrae are intact with normal alignment. No focal bone lesion with abnormal signal can be seen. Evaluation of the intervertebral discs show: T12/L1: Intervertebral disc height is normal, with normal T2 signal. No focal disc herniation is seen. Bilateral T12/L1 neuroforamina are patent. Bilateral apophyseal joints are intact with normal alignment. L-1/L-2: Intervertebral disc height is moderately decreased, with mild loss of T2 signal. Mild posterior and bilateral foraminal disc protrusion is seen. Prominent sharp anterior syndesmophytes are present. Bilateral L1-L2 neuroforamina are mildly stenosed. Bilateral apophyseal joints are intact with normal alignment. L2/L3: Intervertebral disc height is normal, with loss of T2 signal. Mild posterior and bilateral foraminal disc protrusion is seen. Moderate spinal stenosis is seen due to impingement by hypertrophic ligamentum flavum. Bilateral L2-L3 neuroforamina are patent. Bilateral apophyseal joints are intact with normal alignment. Bilateral apophyseal joints show loss of joint space, sclerosis, facet hypertrophy and osteophytosis. L3/L4: Intervertebral disc height is normal, with mild loss of T2 signal. Mild posterior disc protrusion is seen. Mild spinal stenosis is seen due to impingement by hypertrophic ligamentum flavum. Bilateral L3-L4 neuroforamina are patent. Bilateral apophyseal joints are intact with normal alignment. Bilateral apophyseal joints show loss of joint space, sclerosis, facet hypertrophy and osteophytosis. L4/L5: Intervertebral disc height is markedly decreased, with mild loss of T2 signal. Moderate asymmetric left posterior and left foraminal disc protrusion is seen. There is resulting marked asymmetric left L4-L5 neuroforaminal stenosis. Moderate spinal stenosis is seen due to impingement by hypertrophic ligamentum flavum. Bilateral apophyseal joints are intact with normal alignment. Bilateral apophyseal joints show loss of joint space, sclerosis, facet hypertrophy and osteophytosis. L5/S1: Intervertebral disc height is normal, with mild loss of T2 signal. Mild posterior disc protrusion is seen. Bilateral L5-S1 neuroforamina are patent. Bilateral apophyseal joints are intact with normal alignment. Bilateral apophyseal joints show loss of joint space, sclerosis, facet hypertrophy and osteophytosis. Conus medullaris is seen normally at L1 level. MR/MR lumbar spine wo con IMPRESSION: 1. Moderate L4-L5 degenerative disc disease with moderate asymmetric left posterior and left foraminal disc protrusion resulting in marked asymmetric left L4-L5 neuroforaminal stenosis. 2. Moderate L2-L3 and L4-L5 spinal stenosis due to impingement by hypertrophic ligamentum flavum. 3. Mild L3-L4 spinal stenosis due to impingement by hypertrophic ligamentum flavum. 4. Mild L5-S1 degenerative disc disease with mild posterior disc protrusion. 5. 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
--- NOTE | ~2023-07-21 | XR_ITS ---
3 VIEWS OF THE ORBITS FOR MRI CLEARANCE. 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 COMPARISON: None. FINDINGS: There is no metallic foreign body in either orbit or elsewhere. The sinuses are clear without air-fluid levels. The right frontal sinuses slightly hypoplastic. Nasal bones are intact. The sella is normal in size. The zygomatic arches are intact. Mastoids appear aerated. XR/XR pre mri screening IMPRESSION: Normal orbits. No evidence of radiopaque foreign body.
== END 2023-07-21 12:56 | disposition home or self-care (01) ==
LOC: HO.MRI 12:55
PROVIDERS: PCP Internal Medicine; Visit Provider Internal Medicine
DX: R20.0 Anesthesia of skin (principal)
CPT/HCPCS: 72148

== ENCOUNTER 2024-07-09 08:07 | Outpatient (REF) | payer MEDICARE, SELFPAY ==
--- OUTSIDE RECORDS SUMMARY | 2024-07-09 08:18 | XMS_ITS | Encounter Summary ---
Author Organization [employer] Address [address] [facility] 7t [place] [address] Care Team Providers Care Pricing/Signage Team Member Name Role Phone Frank Murphy MD Primary Care Provider [phone] Encounter Details Date Type Department Care Team (Late st Contact Info) Description 03/06/2023 Abstract [facility] MEDICINE [address] [place] [address] Frank Murphy MD [address] [place], [place] [id number] Social History Tobacco Use Types Packs/Day Years Used Date Smoking Tobacco: Never Smokeless Tobacco: Never Alcohol Use Standard Drinks/Week Comments Yes 0 (1 standard drink = 0.6 oz pur e alcohol) Depression Answer Date Recorded Patient Health Questionnaire-9 Score 1 06/10/2022 Housing Stability Answer Date Recorded What is your housing situation today? I have stephen song 02/23/[address] you li ve. Do you have problems with any of the following? None of the above 02/23/2023 Food Insecurity Answer Date Recorded Within the past 12 months, y ou worried that your food would run out before you got money to buy more: Never True 02/23/2023 Within the past 12 months,th e food you bought just didn't last and you didn't have enough money to get more: Never True Transportation Answer Date Recorded In the past 12 months, has l ack of transportation kept you from medical appts, meetings, work or from getting things needed for daily living? No 02/23/2023 Utilities Answer Date Recorded In the past 12 months, has t he electric, gas, oil or water company threatened to shut off services in your home? No 02/23/2023 Depression Answer Date Recorded Patient Health Questionnaire-2 Score 0 06/10/2022 Sex and Gender Information Value Date Recorded Sex Assigned at Male 03/07/2022 10:28 AM EDT Legal Sex Male 10:28 AM EDT Gender Identity Male 03/07/2022 10:28 AM EDT Sexual Orientation Bisexual 03/07/2022 10 :28 AM EDT documented as of this encounter Plan of Treatment Upcoming Encounters Date Type Department Care Team (Late st Contact Info) Description 09/09/2024 10:00 AM EDT Office Visit [facility] MED & PEDS [address] [place] [address] Frank Murphy MD [address] [place] [address] documented as of this encounter Procedures Procedure Name Priority Date/Time Associated Diagnosis Comments COLONOSCOPY Routine 03/16/2015 documented in this encounter Results * Hm Colonoscopy (03/16/2015) Colonoscopy Normal Normal Narrative Yasmeen Avalos - 03/16/2015 Recommended 10 year follow up us Historical Provider HEALTH MAINTENANCE Final Result documented in this encounter Visit Diagnoses Not on filedocumented in this encounter Additional Health Concerns Assessment Noted Time PHQ-9 Depression Total Score: 1 06/10/19 23 2:15 PM EST documented as of this encounter Care Teams Pricing/Signage Team Member Relationship Specialty Start Date End Date Frank Murphy MD [address] [place] [address] PCP - General Internal Medicine 01/02/15 documented as of this encounter
--- OUTSIDE RECORDS SUMMARY | 2024-07-09 08:18 | XMS_ITS | Encounter Summary ---
Author Organization [employer] Address [address] [place] [address] 7 [place] [address] Care Team Providers Care Sample Prep Technician Name Role Phone Frank Murphy MD Primary Care Provider [phone] Encounter Details Date Type Department Care Team (Latest Contact Info) Description 12/15/2021 Abstract [facility] CONVERSIONS Dental, Provider, DDS Social History Tobacco Use Types Packs/Day Years Used Date Smoking Tobacco: Never Assessed Sex and Gender Information Value Date Recorded Sex Assigned at Male 03/07/2022 10:28 AM EDT Legal Sex Male 10:28 AM EDT Gender Identity Male 03/07/2022 10:28 AM EDT Sexual Orientation Bisexual 03/07/2022 10 :28 AM EDT documented as of this encounter Plan of Treatment Upcoming Encounters Date Type Department Care Team (Late st Contact Info) Description 09/09/2024 10:00 AM EDT Office Visit [facility] CHC MED & PEDS [address] [place] [address] Frank Murphy MD [address] [place] [address] documented as of this encounter Visit Diagnoses Not on filedocumented in this encounter Care Teams Sample Prep Technician Relationship Specialty Start Date End Date Frank Murphy MD [address] [place] [address] PCP - General Internal Medicine 01/02/15 documented as of this encounter
--- OUTSIDE RECORDS SUMMARY | 2024-07-09 08:19 | XMS_ITS | Encounter Summary ---
Author Organization [employer] Address [address] [facility] 7t [place] [address] Care Team Providers Care Financial Coordinator Name Role Phone Frank Murphy MD Primary Care Provider [phone] Reason for Visit * Reason Onset Date Comments chart prep 07/05/2024 Encounter Details Date Type Department Care Team ([facility] Contact Info) Description 07/05/2024 Telephone [facility] CHC MED & PEDS [address] [place] [address] Frank Murphy MD [address] [place] [address] chart prep Social History Tobacco Use Types Packs/Day Years Used Date Smoking Tobacco: Never Smokeless Tobacco: Never Alcohol Use Standard Drinks/Week Comments Yes 0 (1 standard drink = 0.6 oz pur e alcohol) Depression Answer Date Recorded Patient Health Questionnaire-9 Score 4 06/08/2023 Patient Health Questionnaire-9 Score 4 06/08/2023 Last PHQ-9: Questionnaire Data Not on file 0 06/08/2023 Housing Stability Answer Date Recorded What is [...] Answer Date Recorded Patient Health Questionnaire-2 Score 1 06/08/2023 Sex and Gender Information Value Date Recorded Sex Assigned at Male 03/07/2022 10:28 AM EDT Legal Sex Male 10:28 AM EDT Gender Identity Male 03/07/2022 10:28 AM EDT Sexual Orientation Bisexual 03/07/2022 10 :28 AM EDT documented as of this encounter Miscellaneous Notes * Telephone Encounter - Gregorio Zavala [place] - 07/05/2024 8:48 AM EST Chart Prep Labs: not done Images: done Vaccines due: yes Referrals: complete Screenings: colonoscopy Overdue care gaps: Sbirt, SDOH, PHQ-9 documented in this encounter Plan of Treatment Upcoming Encounters Date Type Department Care Team (Late st Contact Info) Description 09/09/2024 10:00 AM EDT Office Visit [facility] MED & PEDS [address] [place] [address] Frank Murphy MD [address] [place] [address] documented as of this encounter Visit Diagnoses Not on filedocumented in this encounter Additional Health Concerns Assessment Noted Time PHQ-9 Depression Total Score: 4 06/08/19 24 11:45 AM EST documented as of this encounter Care Teams Financial Coordinator Relationship Specialty Start Date End Date Frank Murphy MD [address] [place] [address] PCP - General Internal Medicine 01/02/15 documented as of this encounter
--- OUTSIDE RECORDS SUMMARY | 2024-07-09 08:19 | XMS_ITS | Encounter Summary ---
Author Organization [employer] Address [address] [facility] 7t [place] [address] Care Team Providers Care Cleaner And Trimmer Name Role Phone Frank Murphy MD Primary Care Provider [phone] Encounter Details Date Type Department Care Team (Latest Contact Info) Description 07/08/2024 Travel Social History Tobacco Use Types Packs/Day Years Used Date Smoking Tobacco: Never Smokeless Tobacco: Never Alcohol Use Standard Drinks/Week Comments Yes 0 (1 standard drink = 0.6 oz pur e alcohol) Depression Answer Date Recorded Patient Health Questionnaire-9 Score 0 07/08/2024 Patient Health Questionnaire-9 Score 0 07/08/2024 Last PHQ-9: Questionnaire Data Not on file 0 07/08/2024 Housing Stability Answer Date Recorded What is your housing situation today? I have stephen song 07/08/[address] you li ve. Do you have problems with any of the following? None of the above 07/08/2024 Food Insecurity Answer Date Recorded Within the past 12 months, y ou worried that your food would run out before you got money to buy more: Never True 07/08/2024 Within the past 12 months,th e food you bought just didn't last and you didn't have enough money to get more: Never True 07/2024 Transportation Answer Date Recorded In the past 12 months, has l ack of transportation kept you from medical appts, meetings, work or from getting things needed for daily living? No 07/08/2024 Utilities Answer Date Recorded In the past 12 months, has t he electric, gas, oil or water company threatened to shut off services in your home? No 07/08/2024 Depression Answer Date Recorded Patient Health Questionnaire-2 Score 0 07/08/2024 Internet Access Answer Date Recorded Internet Access Q1 Yes 07/08/2024 Internet Access Q2 Not on file 07/08/2024 Sex and Gender Information Value Date Recorded Sex Assigned at Male 03/07/2022 10:28 AM EDT Legal Sex Male 10:28 AM EDT Gender Identity Male 03/07/2022 10:28 AM EDT Sexual Orientation Bisexual 03/07/2022 10 :28 AM EDT documented as of this encounter Plan of Treatment Upcoming Encounters Date Type Department Care Team (Late st Contact Info) Description 09/09/2024 10:00 AM EDT Office Visit [facility] MED & PEDS [address] [place] [address] Frank Murphy MD [address] [place] [address] documented as of this encounter Visit Diagnoses Not on filedocumented in this encounter Additional Health Concerns Assessment Noted Time PHQ-9 Depression Total Score: 0 07/09/19 25 10:12 AM EST documented as of this encounter Care Teams Cleaner And Trimmer Relationship Specialty Start Date End Date Frakn Murphy MD [address] [place] [address] PCP - General Internal Medicine 01/02/15 documented as of this encounter
--- OUTSIDE RECORDS SUMMARY | 2024-07-09 08:19 | XMS_ITS | Encounter Summary ---
Author Organization [employer] Address [address] [place] [address] 7 [place] [address] Care Team Providers Care Building Supervisor Name Role Phone Frank Murphy MD Primary Care Provider [phone] Reason for Referral * Imaging (Routine) - Closed Specialty Diagnoses / Procedures Referred By Contac t Referred To Contact Radiology Diagnoses Numbness of left lower extremity Procedures MR Lumbar Spine w/o Contrast Frank Murphy MD [address] [place] [address] Phone: tel: fax: [address] Phone: tel: fax: Referral ID Status Reason Start Date Expiration Date Visits Re quested Visits Authorized [id number] Closed 06/19/2023 06/18/2024 1 1 Encounter Details Date Type Department Care Team ([facility] st Contact Info) Description 06/19/2023 Orders Only [facility] CHC MED & PEDS [address] [place], [place] [phone] Frank Murphy MD [address] [place], [place] [phone] Numbness of left lower extremity (Primary Dx) Social History Tobacco Use Types Packs/Day Years [...] Description 09/09/2024 10:00 AM EDT Office Visit [facility] CHC MED & PEDS [address] [place] [address] Frank Murphy MD [address] [place] [address] documented as of this encounter Procedures Procedure Name Priority Date/Time Associated Diagnosis Comments MR LUMBAR SPINE WO CONTRAST Routine 07/21/2023 2:08 PM EDT Numbness of left lower extremity documented in this encounter Results * MR Lumbar Spine w/o Contrast (07/21/2023 2:08 PM EDT) Anatomical Region Laterality Modality Spine, L-spine Magnetic Resonan ce 07/21/2023 2:08 PM EDT Narrative 07/27/2023 4:12 PM EDT ? [facility] ?[address] ?[place] [address] ? Magnetic Resonance Report ? Signed ? Patient: Hank Naqvi ?MR#: [id number] ?? 32 ? : 1955 ?Acct:[id number] ? Age/Sex: 68 / M ?ADM Date: 07/21/23 ? Loc: HO.MRI ? Attending Dr: Frank Murphy MD ? Ordering Physician: Frank Murphy MD ?? Date of Service: 07/21/23 ?? Procedure(s): MR lumbar spine wo con ?? Accession Number(s): [id number] ? cc: Frank Murphy MD ? EXAMINATION: ?? MR LUMBAR SPINE WITHOUT CONTRAST ? CLINICAL INFORMATION: ?? Lumbar radiculopathy, left lower extremity numbness ? COMPARISON: ?? Lumbar spine x-ray on 05/25/2021 ? TECHNIQUE: ?? MRI of the lumbar spine was obtained using routine sequences without ?? contrast. ? FINDINGS: The visualized lumbar vertebrae are intact with normal ?? alignment. ??No focal bone lesion with abnormal signal can be seen. ? Evaluation of the intervertebral discs show: ? T12/L1: Intervertebral disc height is normal, with normal T2 signal. ?? No focal disc herniation is seen. ??Bilateral T12/L1 neuroforamina are ?? patent. ?? Bilateral apophyseal joints are intact with normal alignment. ? L-1/L-2: Intervertebral disc height is moderately decreased, with mild ?? loss of T2 signal. Mild posterior and bilateral foraminal disc ?? protrusion is seen. Prominent sharp anterior syndesmophytes are ?? present. Bilateral L1-L2 neuroforamina are mildly stenosed. ?? Bilateral apophyseal joints are intact with normal alignment. ? L2/L3: Intervertebral disc height is normal, with loss of T2 signal. ?? Mild posterior and bilateral foraminal disc protrusion is seen. ?? Moderate spinal stenosis is seen due to impingement by hypertrophic ?? ligamentum flavum. Bilateral L2-L3 neuroforamina are patent. ? Bilateral apophyseal joints are intact with normal alignment. Bilateral ?? apophyseal joints show loss of joint space, sclerosis, facet ?? hypertrophy and osteophytosis. ? L3/L4: Intervertebral disc height is normal, with mild loss of T2 ?? signal. Mild posterior disc protrusion is seen. Mild spinal stenosis is ?? seen due to impingement by hypertrophic ligamentum flavum. Bilateral ?? L3-L4 neuroforamina are patent. ? Bilateral apophyseal joints are intact with normal alignment. Bilateral ?? apophyseal joints show loss of joint space, sclerosis, facet ?? hypertrophy and osteophytosis. ? L4/L5: Intervertebral disc height is markedly decreased, with mild loss ?? of T2 signal. Moderate asymmetric left posterior and left foraminal ?? disc protrusion is seen. There is resulting marked asymmetric left ?? L4-L5 neuroforaminal stenosis. Moderate spinal stenosis is seen due to ?? impingement by hypertrophic ligamentum flavum. ?? Bilateral apophyseal joints are intact with normal alignment. Bilateral ?? apophyseal joints show loss of joint space, sclerosis, facet ?? hypertrophy and osteophytosis. ? L5/S1: Intervertebral disc height is normal, with mild loss of T2 ?? signal. Mild posterior disc protrusion is seen. ??Bilateral L5-S1 ?? neuroforamina are patent. ? Bilateral apophyseal joints are intact with normal alignment. Bilateral ?? apophyseal joints show loss of joint space, sclerosis, facet ?? hypertrophy and osteophytosis. ? Conus medullaris is seen normally at L1 level. ? MR/MR lumbar spine wo con ?? IMPRESSION: ?? 1. ??Moderate L4-L5 degenerative disc disease with moderate asymmetric ?? left posterior and left foraminal disc protrusion resulting in marked ?? asymmetric left L4-L5 neuroforaminal stenosis. ?? 2. ??Moderate L2-L3 and L4-L5 spinal stenosis due to impingement by ?? hypertrophic ligamentum flavum. ?? 3. ??Mild L3-L4 spinal stenosis due to impingement by hypertrophic ?? ligamentum flavum. ?? 4. ??Mild L5-S1 degenerative disc disease with mild posterior disc ?? protrusion. ?? 5. 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 ? Dictated By: ?Jakob,Willie ? Signed By: ?<Electronically signed by Willie ??Jakob in OV> ?07/27/23 1609 ? DD/ 1408 ? TD/TT: ? Shot Hole Shooter: ? Procedure Note Donquinnter, Image - 07/27/[address] [address] Magnetic Resonance Report Signed Patient: Anjum Naqvi#: [id number] 32 : 1955cct:[id number] Age/Sex: 68 / MADM Date: 07/21/23 Loc: HO.MRI Attending Dr: Frank Murphy MD Ordering Physician: Frank Murphy MD Date of Service: 07/21/23 Procedure(s): MR lumbar spine wo con Accession Number(s): [id number] cc: Frank Murphy MD EXAMINATION: MR LUMBAR SPINE WITHOUT CONTRAST CLINICAL INFORMATION: Lumbar radiculopathy, left lower extremity numbness COMPARISON: Lumbar spine x-ray on 05/25/2021 TECHNIQUE: MRI of the lumbar spine was obtained using routine sequences without contrast. FINDINGS: The visualized lumbar vertebrae are intact with normal alignment. No focal bone lesion with abnormal signal can be seen. Evaluation of the intervertebral discs show: T12/L1: Intervertebral disc height is normal, with normal T2 signal. No focal disc herniation is seen. Bilateral T12/L1 neuroforamina are patent. Bilateral apophyseal joints are intact with normal alignment. L-1/L-2: Intervertebral disc height is moderately decreased, with mild loss of T2 signal. Mild posterior and bilateral foraminal disc protrusion is seen. Prominent sharp anterior syndesmophytes are present. Bilateral L1-L2 neuroforamina are mildly stenosed. Bilateral apophyseal joints are intact with normal alignment. L2/L3: Intervertebral disc height is normal, with loss of T2 signal. Mild posterior and bilateral foraminal disc protrusion is seen. Moderate spinal stenosis is seen due to impingement by hypertrophic ligamentum flavum. Bilateral L2-L3 neuroforamina are patent. Bilateral apophyseal joints are intact with normal alignment. Bilateral apophyseal joints show loss of joint space, sclerosis, facet hypertrophy and osteophytosis. L3/L4: Intervertebral disc height is normal, with mild loss of T2 signal. Mild posterior disc protrusion is seen. Mild spinal stenosis is seen due to impingement by hypertrophic ligamentum flavum. Bilateral L3-L4 neuroforamina are patent. Bilateral apophyseal joints are intact with normal alignment. Bilateral apophyseal joints show loss of joint space, sclerosis, facet hypertrophy and osteophytosis. L4/L5: Intervertebral disc height is markedly decreased, with mild loss of T2 signal. Moderate asymmetric left posterior and left foraminal disc protrusion is seen. There is resulting marked asymmetric left L4-L5 neuroforaminal stenosis. Moderate spinal stenosis is seen due to impingement by hypertrophic ligamentum flavum. Bilateral apophyseal joints are intact with normal alignment. Bilateral apophyseal joints show loss of joint space, sclerosis, facet hypertrophy and osteophytosis. L5/S1: Intervertebral disc height is normal, with mild loss of T2 signal. Mild posterior disc protrusion is seen. Bilateral L5-S1 neuroforamina are patent. Bilateral apophyseal joints are intact with normal alignment. Bilateral apophyseal joints show loss of joint space, sclerosis, facet hypertrophy and osteophytosis. Conus medullaris is seen normally at L1 level. MR/MR lumbar spine wo con IMPRESSION: 1. Moderate L4-L5 degenerative disc disease with moderate asymmetric left posterior and left foraminal disc protrusion resulting in marked asymmetric left L4-L5 neuroforaminal stenosis. 2. Moderate L2-L3 and L4-L5 spinal stenosis due to impingement by hypertrophic ligamentum flavum. 3. Mild L3-L4 spinal stenosis due to impingement by hypertrophic ligamentum flavum. 4. Mild L5-S1 degenerative disc disease with mild posterior disc protrusion. 5. 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 Dictated By: Willie Robert Signed By: <Electronically signed by Willie Robert in OV> 07/27/23 1609 DD/ 1408 TD/TT: Shot Hole Shooter: Frank Murphy MD IMG MRI PROCEDURES Final Re sult documented in this encounter Visit Diagnoses Diagnosis Numbness of left lower extremity- Primary documented in this encounter Additional Health Concerns Assessment Noted Time PHQ-9 Depression Total Score: 4 06/08/19 24 11:45 AM EST documented as of this encounter Care Teams Building Supervisor Relationship Specialty Start Date End Date Frank Murphy MD [address] [place] [address] PCP - General Internal Medicine 01/02/15 documented as of this encounter
--- OUTSIDE RECORDS SUMMARY | 2024-07-09 08:19 | XMS_ITS | Encounter Summary ---
Author Organization [employer] Address [address] [facility] 7t [place] [address] Care Team Providers Care Open Pit Quarry Supervisor Name Role Phone Frank Murphy MD Primary Care Provider [phone] Encounter Details Date Type Department Care Team ([facility] st Contact Info) Description 08/08/2023 Orders Only [facility] CHC MED & PEDS [address] [place], [place] [phone] Frank Murphy MD [address] [place] [address] Social History Tobacco Use Types Packs/Day Years [...] Description 09/09/2024 10:00 AM EDT Office Visit [facility] MED & PEDS [address] [place] [address] Frank Murphy MD [address] [place] [address] documented as of this encounter Visit Diagnoses Not on filedocumented in this encounter Additional Health Concerns Assessment Noted Time PHQ-9 Depression Total Score: 4 06/08/19 24 11:45 AM EST documented as of this encounter Care Teams Open Pit Quarry Supervisor Relationship Specialty Start Date End Date Frank Murphy MD [address] [place] [address] PCP - General Internal Medicine 01/02/15 documented as of this encounter
--- OUTSIDE RECORDS SUMMARY | 2024-07-09 08:19 | XMS_ITS | Encounter Summary ---
Author Organization [employer] Address [address] [place] [address] 7 [place] [address] Care Team Providers Care Burn Out Scarfing Operator Name Role Phone Frank Murphy MD Primary Care Provider [phone] Reason for Referral * Consultation (Routine) - Closed Specialty Diagnoses / Procedures Referred By Reji jay Referred To Contact Orthopaedic Surgery Diagnoses Primary osteoarthritis of both knees Frank Murphy MD [address] [place] [address] Phone: tel: fax: [facility] [address] [place] [address] Phone: tel: Referral ID Status Reason Start Date Expiration Date V isits Requested Visits Authorized [id number] Closed Specialty Services Required 06/28/2023 06/27/2024 1 1 Encounter Details Date Type Department Care Team (Late st Contact Info) Description 06/27/2023 Orders Only [facility] MED & PEDS [address] [place] [address] Frank Murphy MD [address] [place] [address] Primary osteoarthritis of both knees Social History Tobacco Use Types Packs/Day Years [...] Upcoming Encounters Date Type Department Care Team ([facility] st Contact Info) Description 09/09/2024 10:00 AM EDT Office Visit [facility] MED & PEDS [address] [place] [address] Frank Murphy MD [address] [place] [address] Scheduled Referrals Name Type Priority Associated Diagnoses Orde r Schedule Referral to Orthopaedic Surgery Outpatient Referral Routine Primary osteoarthritis of both knees Expected: 06/28/2023 (Approximate), Expires: 06/28/2024 documented as of this encounter Procedures Procedure Name Priority Date/Time Associated Diagnosis Comments XR PRE MRI SCREENING Routine 07/21/2023 1:30 PM EDT documented in this encounter Results * XR PRE MRI SCREENING (07/21/2023 1:30 PM EDT) Anatomical Region Laterality Modality Abdomen Radiographic Amrita ging 07/21/2023 1:30 PM EDT Narrative 07/21/2023 1:48 PM EDT ? [facility] ?[address] ?[place] [address] ?XRay Report ? Signed ? Patient: Driss,Hank ?MR#: [id number] ?? 32 ? : 1955 ?Acct:[id number] ? Age/Sex: 68 / M ?ADM Date: 07/21/23 ? Loc: HO.MRI ? Attending Dr: Frank Murphy MD ? Ordering Physician: Carmelo Booth MD ?? Date of Service: 07/21/23 ?? Procedure(s): XR pre mri screening ?? Accession Number(s): [id number] ? cc: Carmelo Booth MD; Frank Murphy MD ? 3 VIEWS OF THE ORBITS FOR MRI CLEARANCE. ? 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 ? COMPARISON: None. ? FINDINGS: ? There is no metallic foreign body in either orbit or elsewhere. ? The sinuses are clear without air-fluid levels. The right frontal ?? sinuses slightly hypoplastic. Nasal bones are intact. The sella is ?? normal in size. The zygomatic arches are intact. Mastoids appear ?? aerated. ? XR/XR pre mri screening ?? IMPRESSION: ? Normal orbits. No evidence of radiopaque foreign body. ? Dictated By: ?Rick Oviedo MD ? Signed By: ?<Electronically signed by Rick Oviedo MD in OV> ?07/21/23 1344 ? DD/ ? TD/TT: ? Automotive Refinisher: ? Procedure Note Pierce Cox - 07/21/[address] [address] XRay Report Signed Patient: Hank Naqvi#: [id number] 34 : 3Acct:[id number] Age/Sex: 68 / MADM Date: 07/21/23 Loc: HO.MRI Attending Dr: Frank Murphy MD Ordering Physician: Carmelo Booth MD Date of Service: 07/21/23 Procedure(s): XR pre mri screening Accession Number(s): [id number] cc: Carmelo Booth MD; Frank Murphy MD 3 VIEWS OF THE ORBITS FOR MRI CLEARANCE. 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 COMPARISON: None. FINDINGS: There is no metallic foreign body in either orbit or elsewhere. The sinuses are clear without air-fluid levels. The right frontal sinuses slightly hypoplastic. Nasal bones are intact. The sella is normal in size. The zygomatic arches are intact. Mastoids appear aerated. XR/XR pre mri screening IMPRESSION: Normal orbits. No evidence of radiopaque foreign body. Dictated By: Rick Oviedo MD Signed By: <Electronically signed by Rick Oviedo MD in OV> 07/21/23 1344 DD/ 1330 TD/TT: Automotive Refinisher: [facility] External Provider IMG XR PROCEDURES Final Result documented in this encounter Visit Diagnoses Diagnosis Primary osteoarthritis of both knees documented in this encounter Additional Health Concerns Assessment Noted Time PHQ-9 Depression Total Score: 4 06/08/19 24 11:45 AM EST documented as of this encounter Care Teams Burn Out Scarfing Operator Relationship Specialty Start Date End Date Frank Murphy MD [address] [place] [address] PCP - General Internal Medicine 01/02/15 documented as of this encounter
--- OUTSIDE RECORDS SUMMARY | 2024-07-09 08:19 | XMS_ITS | Encounter Summary ---
Author Organization [employer] Address [address] [place] [address] 7 [place] [address] Care Team Providers Care Wind Operations Manager Name Role Phone Frank Murphy MD Primary Care Provider [phone] Reason for Visit * Reason Comments Extended office visit Encounter Details Date Type Department Care Team (Latest Contact Info) Description 07/08/2024 9:30 AM EST Office Visit [facility] CH[facility] MED & PEDS [address] [place] [address] Frank Murphy MD [address] [place] [address] Primary osteoarthritis of both knees (Primary Dx); Malignant melanoma of skin (CMS/HCC); Numbness of left lower extremity; Encounter for immunization Social History Tobacco Use Types Packs/Day Years [...] AM EDT documented as of this encounter Last Filed Vital Signs Vital Sign Reading Time Taken Comments Blood Pressure 142/79 07/08/2024 9:36 AM EST Pulse 62 07/08/2024 9:36 AM EST Temperature 36.6 ??C (97.9 ??F) 07/08/2024 9:36 AM ES T Respiratory Rate 20 07/08/2024 9:36 AM EST Oxygen Saturation 97% 07/08/2024 9:36 AM EST Inhaled Oxygen Concentration - - Weight 87.1 kg (192 lb) 07/08/2024 9:36 AM EST Height 184.8 cm (6' 0.75 ) 07/08/2024 9:36 AM ES T Body Mass Index 25.51 07/08/2024 9:36 AM EST documented in this encounter Progress Notes * Frank Murphy MD - 07/08/2024 9:30 AM EST Subjective Patient ID: Hank Naqvi is a 69 y.o. male who presents for Extended office visit. HPI 1) history of osteoarthritis. Patient was offered a regenerative treatment which would cost about $10,000 for the 2 knees. He declined the offer. He feels stable otherwise still able to play basketball every week and able to go hiking. He is notinterested in any procedure for now. 2) evaluated by cardiology. No acute intervention recommended. Patient Denies palpitations. Feels overall stable. Patient Active Problem List Diagnosis Malignant melanoma of skin (CMS/HCC) Osteoarthritis of knee Current Outpatient Medications on File Prior to Visit Medication Sig Dispense Refill B Complex Vitamins (Vitamin-B Complex) tablet No current facility-administered medications on file prior to visit. No Known Allergies Review of Systems Constitutional: Negative for activity change, appetite change, chills and diaphoresis. HENT: Negative for dental problem, drooling and ear discharge. Eyes: Negative for pain and itching. Respiratory: Negative for cough, choking and chest tightness. Cardiovascular: Negative for palpitations and leg swelling. Gastrointestinal: Negative for abdominal pain, anal bleeding and blood in stool. Endocrine: Negative for cold intolerance and heat intolerance. Genitourinary: Negative for flank pain, frequency and genital sores. Musculoskeletal: Negative for back pain. Neurological: Negative for light-headedness, numbness and headaches. Psychiatric/Behavioral: Negative for agitation, confusion and decreased concentration. Objective BP (!) 142/79 (BP Location: Left arm, Patient Position: Sitting, BP Cuff Size: Adult long) Pulse 62 Temp 97.9 ??F (36.6 ??C) (Oral) Resp 20 Ht 6' 0.75 (1.848 m) Wt 192 lb (87.1 kg) SpO2 97% BMI 25.51 kg/m?? Physical Exam Constitutional: General: He is not in acute distress. Appearance: Normal appearance. He is obese. He is not ill-appearing, toxic- appearing or diaphoretic. HENT: Head: Normocephalic. Right Ear: Tympanic membrane normal. Left Ear: Tympanic membrane normal. Nose: Nose normal. Eyes: General: No scleral icterus. Right eye: No discharge. Left eye: No discharge. Pupils: Pupils are equal, round, and reactive to light. Cardiovascular: Rate and Rhythm: Normal rate and regular rhythm. Heart sounds: No murmur heard. No friction rub. No gallop. Pulmonary: Effort: Pulmonary effort is normal. No respiratory distress. Breath sounds: Normal breath sounds. No stridor. No wheezing, rhonchi or rales. Chest: Chest wall: No tenderness. Abdominal: General: Abdomen is flat. There is no distension. Palpations: Abdomen is soft. There is no mass. Tenderness: There is no abdominal tenderness. There is no right CVA tenderness, guarding or rebound. Hernia: No hernia is present. Musculoskeletal: General: Normal range of motion. Cervical back: Normal range of motion. Skin: General: Skin is warm. Neurological: General: No focal deficit present. Mental Status: He is alert. Psychiatric: Mood and Affect: Mood normal. Behavior: Behavior normal. Assessment/Plan Diagnoses and all orders for this visit: Primary osteoarthritis of both knees Comments: Stable. No acute intervention. Ibuprofen as needed. Malignant melanoma of skin (CMS/HCC) Comments: Patient needs his annual complete skin exam. It will be scheduled. Orders: - CBC auto differential; Future - Lipid Panel, Standard; Future - TSH W/Reflex to FT4; Future - Comprehensive Metabolic Panel; Future Numbness of left lower extremity Comments: No recent worsening. Patient is still active and doing well. No acute intervention needed today. Encounter for immunization - PCV-20 VACCINE 6 wks + documented in this encounter Plan of Treatment Upcoming Encounters Date Type Department Care Team (Late st Contact Info) Description 09/09/2024 10:00 AM EDT Office Visit [facility] MED & PEDS [address] [place] [address] Frank Murphy MD [address] [place] [address] Scheduled Orders Name Type Priority Associated Diagnoses Orde r Schedule CBC auto differential Lab Routine Malignant melanoma of skin (CMS/HCC) Expected: 07/08/2024 (Approximate), Expires: 07/08/2025 Lipid Panel, Standard Lab Routine Malignant melanoma of skin (CMS/HCC) Expected: 07/08/2024 (Approximate), Expires: 07/08/2025 TSH W/Reflex to FT4 Lab Routine Malignant melanoma of skin (CMS/HCC) Expected: 07/08/2024 (Approximate), Expires: 07/08/2025 Comprehensive Metabolic Panel Lab Routine Malignant melanoma of skin (CMS/HCC) Expected: 07/08/2024 (Approximate), Expires: 07/08/2025 documented as of this encounter Visit Diagnoses Diagnosis Primary osteoarthritis of both knees- Primary Malignant melanoma of skin (CMS/HCC) Melanoma of skin, site unspecified Numbness of left lower extremity Encounter for immunization documented in this encounter Additional Health Concerns Assessment Noted Time PHQ-9 Depression Total Score: 0 07/09/19 25 10:12 AM EST documented as of this encounter Care Teams Wind Operations Manager Relationship Specialty Start Date End Date Frank Murphy MD [address] [place] [address] PCP - General Internal Medicine 01/02/15 documented as of this encounter
--- OUTSIDE RECORDS SUMMARY | 2024-07-09 08:19 | XMS_ITS | Clinical Summary ---
Author Organization [employer] Address [address] [facility] [address] [place] [address] Care Team Providers Care Race Engine Builder Name Role Phone Frank Murphy MD Primary Care Provider [phone] Allergies No known active allergies Medications B Complex Vitamins (Vitamin-B Complex) tablet Acti ve Active Problems Problem Noted Date Diagnosed Date Osteoarthritis of knee 11/02/2013 Malignant melanoma of skin 06/04/2006 Encounters Date Type Department Care Team Description 07/08/2024 9:30 AM EST Office Visit [facility] MED & PEDS [address] [place] [address] Frank Murphy MD Primary osteoarthritis of both knees (Primary Dx); Malignant melanoma of skin (CMS/HCC); Numbness of left lower extremity; Encounter for immunization 07/08/2024 Travel 07/05/2024 Telephone [facility] MED & PEDS [address] [place] [address] Frank Murphy MD chart prep 06/21/2024 Patient Outreach [facility] [address] [place] [address] Frank Murphy MD Pre-visit Planning (Pre visit planning LVM ) 05/23/2024 3:30 PM EST Office Visit [facility] ADULT DENTAL [address] [place] [address] David Romero 05/23/2024 Travel from Last 3 Months Immunizations Name Administration Dates Next Due Influenza High-dose Quadriva lent Preservative Free 03/08/2021,03/16/2020 Influenza injectable quadriv alent IIV4 with preservative 03/21/2018,02/13/2017,02/10/2016 Influenza injectable quadriv alent preservative free 02/07/2023,02/11/2022 Influenza, High Dose Seasona l, Preservative Free 02/06/2024 Moderna Covid-19 Vaccine 12+ 08/20/2021, 03/08/2021,08/06/2020,2020 Pfizer Covid-19 Vaccine 12+ 02/06/2024, Pneumococcal Conjugate PCV 13 03/21/2018 Pneumococcal Conjugate PCV 20 07/08/2024 Tdap 02/13/2017 Zoster, Recombinant 08/08/2023,06/09/2023 Family History Medical History Relation Name Comments Thyroid cancer Father Dementia Mother vascular dementia Mother No Known Problems Paternal Grandfather Relation Name Status Comments Father Mother Paternal Grandfather Social History Tobacco Use Types Packs/Day Years Used Date Smoking Tobacco: Never Smokeless Tobacco: Never Tobacco Cessation:Counseling Given: Not Answered Alcohol Use Standard Drinks/Week Comments Yes 0 [...] Orientation Bisexual 03/07/2022 10 :28 AM EDT Last Filed Vital Signs Vital Sign Reading [...] Mass Index 25.51 07/08/2024 9:36 AM EST Plan of Treatment Upcoming Encounters Date Type Department Care Team (Late st Contact Info) Description 09/09/2024 10:00 AM EDT Office Visit [facility] MED & PEDS [address] [place] [address] Frank Murphy MD [address] [place] [address] Health Maintenance Due Date Last Done Comments CT Colonography 1955 FIT DNA/Cologuard 1955 FIT 1955 FOBT 1955 Sigmoidoscopy 1955 Derm Melanoma Skin Check 1955 Dental X-Ray: Bitewings 06/16/2023 06/15/2022, 05/03 Dental Oral Exam 08/26/2023 02/23/2023, 06/15/2022 Dental Prophylaxis 08/26/2023 02/23/2023 Colonoscopy 03/16/2025 03/16/2015 Colorectal Cancer Screening 03/16/2025 Dental X-Ray: Full Mouth 05/28/2025 05/27/2022 Alcohol/Substance Use Screening 07/08/2025 07/08/2024 Depression Screening 07/08/2025 07/08/2024, 07/09/19 SDOH Screening 07/08/2025 07/08/2024 Tobacco Screening 07/08/2025 07/08/2024 DTaP/Tdap/Td Vaccines (2 - Td or Tdap) 02/13/2027 02/13/2017 RSV Patients and Patients Aged 60 years or older (1 - 1-dose 75+ series) 2028 Lipid Panel 06/12/2028 06/12/2023, 1211/2020, 12/24/2019 Hepatitis C Screening Completed 06/12/2023 Zoster Vaccines Completed 08/08/2023, 06/09/2023 COVID-19 Vaccine Completed 02/06/2024, 07/2022, 02/11/2022, Additional history exists Influenza Vaccine Completed 02/06/2024, , 02/11/2022, Additional history exists Pneumococcal Vaccine: 50+ Years Completed 07/08/2024, 03/21/2018 HIB Vaccines Aged Out No longer eligi ble based on patient's age to complete this topic HPV Vaccines Aged Out No longer eligi ble based on patient's age to complete this topic Hepatitis A Vaccines Aged Out No long er eligible based on patient's age to complete this topic Hepatitis B Vaccines Aged Out No long er eligible based on patient's age to complete this topic IPV Vaccines Aged Out No longer eligi ble based on patient's age to complete this topic Meningococcal Vaccine Aged Out No domo blair eligible based on patient's age to complete this topic RSV under 20 months Aged Out No longe r eligible based on patient's age to complete this topic Rotavirus Vaccines Aged Out No longer eligible based on patient's age to complete this topic Procedures Procedure Name Priority Date/Time Associated Diagnosis Comments 9 INTRAORAL - PERIAPICAL FIRST RADIOGRAPHIC IMAGE Routine 05/23/2024 3:30 PM EST 9 LIMITED ORAL EVALUATION - PROBLEM FOCUSED Routine 05/23/2024 3:30 PM EST HEPATITIS C ANTIBODY Routine 06/12/2023 8:44 AM EST Primary osteoarthritis of both knees Annual physical exam Numbness of left lower extremity LIPID PANEL, STANDARD Routine 06/12/2023 8:44 AM EST Primary osteoarthritis of both knees Annual physical exam Numbness of left lower extremity Full PROPHYLAXIS - ADULT Routine 02/23/2023 10:00 AM EDT PERIODIC ORAL EVALUATION - ESTABLISHED PATIENT Routine 02/23/2023 10:00 AM EDT BITEWINGS - 4 RADIOGRAPHIC IMAGES Routine 06/15/2022 10:00 AM EST PANORAMIC RADIOGRAPHIC IMAGE Routine 05/27/2022 9:00 AM EST HM COLONOSCOPY Routine 03/16/2015 from Last 3 Months or Most Recently Relevant to Health Maintenance Results * Hepatitis C Ab (06/12/2023 8:44 AM EST) Hepatitis C Antibody Nonreactive Nonreactive [facility] Comment:Antibodies to HCV no t detected; does not exclude early acuteHCV infection. Blood Venous blood specimen / Unknown 06/12/2023 8:44 AM EST 06/12/2023 2:36 PM EST us Frank Murphy MD LAB BLOOD ORDERABLES Final Result [facility] [address] [place] [phone] * (ABNORMAL) Lipid Panel, Standard (06/12/2023 8:44 AM EST) Triglycerides 76 <150 mg/dL [facility] Comment:Desirable Triglyceri de: less than 150 mg/dLBorderline High Triglyceride 150-199 mg/dLHigh Triglyceride: 200-499 mg/dLVery High Triglyceride: greater than or equal to 5OO mg/dL Cholesterol 201(H) <200 mg/dL [facility] Comment:Desirable Cholestero l: less than 200 mg/dLBorderline High Cholesterol: 200-239 mg/dLHigh Cholesterol: greater than 239 mg/dL LDL Cholesterol Calculated 132(H) <100 mg/dL [facility] Comment:Desirable LDL: less than 100 mg/dLNear Optimal/Above Optimal LDL: 110- 129 mg/dLBorderline High LDL: 130-159 mg/dLHigh LDL: 160-189 mg/dLVery High LDL: greater than or equal to 190 mg/dL HDL Cholesterol 54 >40 mg/dL [facility] Comment:Desirable HDL: great er than 40 mg/dL Note: This HDL assay may give artificially low results in patients with liver disease. Blood Venous blood specimen / Unknown 06/12/2023 8:44 AM EST 06/12/2023 2:36 PM EST Frank Murphy MD LAB BLOOD ORDERABLES Final Result Performing Organization Address City/State/[facility] Co de Phone Number [facility] [address] [place] [phone] * Colonoscopy (03/16/2015) Colonoscopy Normal Normal Narrative Yasmeen Avalos - 03/16/2015 Recommended 10 year follow up Historical Provider HEALTH MAINTENANCE Final Result from Last 3 Months or Most Recently Relevant to Health Maintenance Insurance [facility] MEDICARE ADVANTAGE HMO DENTAL [facility] Care Teams Race Engine Builder Relationship Specialty Start Date End Date Frank Murphy MD [address] [place] [address] PCP - General Internal Medicine 01/02/15
--- OUTSIDE RECORDS SUMMARY | 2024-07-09 08:19 | XMS_ITS | Encounter Summary ---
Author Organization [employer] Address [address] [facility] 7 [place] [address] Care Team Providers Care Cracking Unit Operator Name Role Phone Frank Mruphy MD Primary Care Provider [phone] Reason for Visit * Reason Comments Pre-visit Planning Pre visit planning L VM Encounter Details Date Type Department Care Team ([facility] st Contact Info) Description 06/21/2024 Patient Outreach [facility] [address] [place] [address] Frank Murphy MD [address] [place] [address] Pre-visit Planning (Pre visit planning LVM ) Social History Tobacco Use Types Packs/Day Years [...] AM EDT documented as of this encounter Progress Notes * Yohannes Cody - 06/21/2024 3:00 PM EST CC Yohannes Herrera placed outbound call to patient to complete pre-visit planning. No answer at this time.Patient name and were not confirmed. CC left voicemail requesting return call. Direct contact information provided. documented in this encounter Plan of Treatment Upcoming Encounters Date Type Department Care Team ([facility] st Contact Info) Description 09/09/2024 10:00 AM EDT Office Visit [facility] CHC MED & PEDS [address] [place] [address] Frank Murphy MD [address] [place] [address] documented as of this encounter Visit Diagnoses Not on filedocumented in this encounter Additional Health Concerns Assessment Noted Time PHQ-9 Depression Total Score: 4 06/08/19 24 11:45 AM EST documented as of this encounter Care Teams Cracking Unit Operator Relationship Specialty Start Date End Date Frank Murphy MD [address] [place] [address] PCP - General Internal Medicine 01/02/15 documented as of this encounter
[2024-07-09 14:11] LABS: MANUAL DIFF FLAG NO
[2024-07-09 14:20] LABS: Basophils Absolute Auto 0.1 X10*3/uL (0.0-0.2); Basophils Percent Auto 0.9 % (0-2); Eosinophils Absolute Auto 0.4 X10*3/uL (0.0-0.4); Eosinophils Percent Auto 6.5 % (0-4); Hematocrit 44.8 % (42.0-52.0); Hemoglobin 14.7 g/dl (14.0-18.0); Imm Gran Abs Auto 0.01 X10*3/uL (0.00-0.03); Imm Gran Pct Auto 0.2 % (0.0-0.4); Lymphocytes Absolute Auto 1.9 X10*3/uL (1.2-4.9); Lymphocytes Percent Auto 30.6 % (20-40); Mean Corpuscular HGB Conc 32.8 g/dl (31.0-36.0); Mean Corpuscular Hemoglobin 30.8 pg (27.0-33.0); Mean Corpuscular Volume 93.7 fL (80.0-98.0); Mean Platelet Volume 11.1 fL (9.4-12.4); Monocytes Absolute Auto 0.8 X10*3/uL (0.1-1.2); Neutrophils Absolute Auto 3.2 x10*3/uL (2.0-8.3); Neutrophils Percent Auto 49.8 % (45-73); Platelet Count 242 X10*3/uL (160-400); Red Blood Count 4.78 X10*6/uL (4.60-5.80); Red Cell Distribution Width 13.8 % (11.0-16.0); White Blood Count 6.3 X10*3/uL (4.8-10.8)
[2024-07-09 15:02] LABS: Alanine Aminotransferase 22 U/L (0-40); Albumin Level 3.8 g/dL (3.5-5.0); Alkaline Phosphatase 63 U/L (39-117); Anion Gap 10 (12-20); Aspartate Amino Transferase 30 U/L (5-37); Bilirubin Total 0.4 mg/dL (0.0-1.0); Blood Urea Nitrogen 19 mg/dL (9-16); Calcium 8.4 mg/dL (8.4-10.2); Carbon Dioxide 25 mmol/L (22-29); Chloride 112 mmol/L (96-108); Cholesterol 202 mg/dL (<200); Estimated Glomerular Filt Rate > 60; Glucose Random 86 mg/dL (60-115); HDL Cholesterol 55 mg/dL (>40); LDL Cholesterol Calculated 128 mg/dL (<100); Potassium 4.3 mmol/L (3.3-5.1); Sodium 143 mmol/L (135-145); TSH reflex Free T4 1.65 uIU/mL (0.32-4.0); Triglycerides 96 mg/dL (<150)
== END 2024-07-09 08:08 | disposition home or self-care (01) ==
LOC: HO.CHCLDS 08:07
PROVIDERS: Visit Provider Internal Medicine
DX: C43.9 Malignant melanoma of skin, unspecified (principal); Z13.6 Encounter for screening for cardiovascular disorders
CPT/HCPCS: 36415; 80053; 80061; 84443; 85025

== ENCOUNTER 2025-02-27 11:48 | Outpatient (REF) | payer MEDICARE, SELFPAY ==
--- NOTE | ~2025-02-27 | XR_ITS ---
Exam: X-ray, bilateral knees.XR KNEE 3 VIEWS BILATERAL TECHNIQUE: Three views lower extremity joint, bilateral knees INDICATION: pain COMPARISON: June 27, 2023 FINDINGS: RIGHT KNEE: There is moderate to severe narrowing of the medial joint space similar to the prior examination. There is minimal narrowing of the lateral joint space. There are tricompartmental marginal osteophytes. There is no joint effusion. Possible interarticular ossified bodies posterior to the distal femur. LEFT KNEE: There is moderate to severe narrowing of the medial joint space with subchondral sclerosis involving tibial plateau. There is tricompartmental marginal osteophytes. There is no joint effusion. There is vascular calcification in the popliteal artery. XR/XR Knee Rishi 3V IMPRESSION: Right knee: Moderately severe osteoarthritis with possible intra-articular ossified bodies posterior to the distal femoral condyles. Left knee: Moderately severe osteoarthritis. Electronically signed by: Estuardo Menjivar MD 02/27/2025 01:15 PM EDT
--- OUTSIDE RECORDS SUMMARY | 2025-02-27 15:07 | XMS_ITS | Encounter Summary ---
Author Organization [employer] Address [address] [facility] 7 [place] [address] Care Team Providers Care Director Client Services Name Role Phone Frank Murphy MD Primary Care Provider [phone] Reason for Referral * Consultation (Routine) - Closed Specialty Diagnoses / Procedures Referred By Reji jay Referred To Contact Orthopaedic Surgery Diagnoses Primary osteoarthritis of both knees Frank Murphy MD [address] [place] [address] Phone: tel: fax: [facility] Orthopedics [address] [place] [address] Phone: tel: Referral ID Status Reason Start Date Expiration Date V isits Requested Visits Authorized [id number] Closed Specialty Services Required 06/28/2023 06/27/2024 1 1 Encounter Details Date Type Department Care Team (Late st Contact Info) Description 06/27/2023 Orders Only [facility] & PEDS [address] [place] [address] Frank Murphy MD [address] [place], [place] [phone] Primary osteoarthritis of both knees Social History [...] as of this encounter Plan of Treatment Scheduled Referrals Name Type Priority Associated Diagnoses [...] PM EDT Narrative 07/21/2023 1:48 PM EDT [address] [address] XRay Report Signed Patient: Hank Naqvi MR#: [id number] 34 : 1955 Acct:[id number] Age/Sex: 68 / M ADM Date: 07/21/23 Loc: HO.MRI Attending Dr: Frank Murphy MD Ordering Physician: Carmelo Booth MD Date of Service: 07/21/23 Procedure(s): XR pre mri screening Accession Number(s): [id number] cc: Carmelo Booth MD; Frank Murphy MD [...] in OV> 07/21/23 1344 DD/ 1330 TD/TT: Inductor Tester: Procedure Note Donotuseinterpreter, Image - 07/21/[address] [address] XRay Report Signed Patient: Hank NaqviMR#: [id number] [birth year] : 1955cct:[id number] Age/Sex: 68 / MADM Date: 07/21/23 Loc: HO.MRI Attending Dr: Frank Murphy MD Ordering Physician: Carmelo Booth MD Date of Service: 07/21/23 Procedure(s): XR pre mri screening Accession Number(s): [id number] cc: Carmelo Booth MD; Frank Murphy MD [...] in OV> 07/21/23 1344 DD/ 1330 TD/TT: Inductor Tester: [facility] External Provider IMG XR PROCEDURES Final Result documented in this encounter Visit Diagnoses Diagnosis Primary osteoarthritis of both knees documented in this encounter Additional Health Concerns Assessment Noted Time PHQ-9 Depression Total Score: 4 06/08/19 24 11:45 AM EST documented as of this encounter Care Teams Director Client Services Relationship Specialty Start Date End Date Frank Murphy MD [address] [place] [address] PCP - General Internal Medicine 01/02/15 documented as of this encounter
--- OUTSIDE RECORDS SUMMARY | 2025-02-27 15:07 | XMS_ITS | Encounter Summary ---
Author Organization [employer] Address [address] [place] [address] 7t [place] [address] Care Team Providers Care Brass Molder Helper Name Role Phone Frank Murphy MD Primary Care Provider [phone]- [phone] Encounter Details Date Type Department Care Team (Latest Contact Info) Description 12/15/2021 Abstract [facility] Dental, Provider, DDS Social History Tobacco Use Types Packs/Day Years Used Date Smoking Tobacco: Never Assessed Sex and Gender Information Value Date Recorded Sex Assigned at Male 03/07/2022 10:28 AM EDT Legal Sex Male 10:28 AM EDT Gender Identity Male 03/07/2022 10:28 AM EDT Sexual Orientation Bisexual 03/07/2022 10 :28 AM EDT documented as of this encounter Plan of Treatment Not on file documented as of this encounter Visit Diagnoses Not on filedocumented in this encounter Care Teams Brass Molder Helper Relationship Specialty Start Date End Date Frank Murphy MD [address] [place] [address] PCP - General Internal Medicine 01/02/15 documented as of this encounter
--- OUTSIDE RECORDS SUMMARY | 2025-02-27 15:07 | XMS_ITS | Encounter Summary ---
Author Organization [employer] Address [address] [facility] [address] 7[address] [place] [address] Care Team Providers Care Marker Machine Attendant Name Role Phone Frank Murphy MD Primary Care Provider [phone] Encounter Details Date Type Department Care Team ([facility] st Contact Info) Description 01/01/2025 Orders Only [facility] PEDS [address] [place], [place] [phone] Provider, MD Annmarie Social History Tobacco Use Types Packs/Day Years [...] on file documented as of this encounter Procedures Procedure Name Priority Date/Time Associated Diagnosis Comments LAB COLOGUARD COLON CANCER SCREEN Routine 12/17/2024 10:11 AM EDT documented in this encounter Results * Cologuard?? colon cancer screening (12/17/2024 10:11 AM EDT) Stool (Rectum) Historical Provider LAB MOLECULAR DIAGNOSTICS ORDERABLES Final Result documented in this encounter Visit Diagnoses Not on filedocumented in this encounter Additional Health Concerns Assessment Noted Time PHQ-9 Depression Total Score: 0 07/09/19 25 10:12 AM EST documented as of this encounter Care Teams Marker Machine Attendant Relationship Specialty Start Date End Date Frank Murphy MD [address] [place] [address] PCP - General Internal Medicine 01/02/15 documented as of this encounter
--- OUTSIDE RECORDS SUMMARY | 2025-02-27 15:07 | XMS_ITS | Clinical Summary ---
Author Organization [employer] [facility] Address [address] [place] [address] 7t [place] [address] Care Team Providers Care Cadmium Liquor Maker Name Role Phone Frank Murphy MD Primary Care Provider [phone] Allergies No known active allergies Medications B Complex Vitamins (Vitamin-B Complex) tablet Acti ve Active Problems Problem Noted Date Diagnosed Date BCC (basal cell carcinoma), face 01/21/2025 Osteoarthritis of knee 11/02/2013 Malignant melanoma of skin 06/04/2006 Encounters Date Type Department Care Team Description 02/20/2025 2:30 PM EDT Clinical Support [facility] [address] [place] [address] Esperanza Garner RN Encounter for vaccination; Encounter for immunization 02/20/2025 Travel 01/21/2025 11:30 AM EDT Office Visit [facility] [address] [place] [address] Frank Murphy MD BCC (basal cell carcinoma), face (Primary Dx) 01/21/2025 Travel 01/01/2025 Orders Only [facility] [address] [place] [address] Annmarie Pitts MD 12/31/2024 Results Follow-Up [facility] [address] [place] [address] Missy Azar, MARTIN Dermatopathology Report 12/31/2024 Telephone [facility] [address] [place] [address] Frank Murphy MD 12/30/2024 Orders Only [facility] [address] [place] [address] ProviderAnnmarie MD 12/24/2024 9:00 AM EDT Office Visit [facility] [address] [place] [address] Frank Murphy MD Primary osteoarthritis of both knees (Primary Dx); Neoplasm of uncertain behavior 12/24/2024 Travel from Last 3 Months Immunizations Immunization Administration Dates Next Due Influenza High-dose Quadriva lent Preservative Free 03/08/2021,03/16/2020 Influenza injectable quadriv alent IIV4 with preservative 03/21/2018,02/13/2017,02/10/2016 Influenza injectable quadriv alent preservative free 02/07/2023,02/11/2022 Influenza, High Dose Seasona l, Preservative Free 02/20/2025,02/06/2024 Moderna Covid-19 Vaccine 12+ 08/20/2021, 03/08/2021,08/06/2020,2020 Pfizer Covid-19 Vaccine 12+ 02/20/2025,,02/07/2023 Pneumococcal Conjugate PCV 13 03/21/2018 Pneumococcal Conjugate [...] your housing situation today? I have stephen duncan 07/08/[address] you li [...] Sign Reading Time Taken Comments Blood Pressure 132/87 01/21/2025 11:29 AM EDT Pulse 67 01/21/2025 11:29 AM EDT Temperature 36.5 C (97.7 F) 12/24/2024 8:57 AM EDT Respiratory Rate 19 01/21/2025 11:29 AM EDT Oxygen Saturation 98% 01/21/2025 11:29 AM EDT Inhaled Oxygen Concentration - - Weight 85.3 kg (188 lb) 01/21/2025 11:29 AM EDT Height 184.8 cm (6' 0.75 ) 01/21/2025 11:29 AM E DT Body Mass Index 24.97 01/21/2025 11:29 AM EDT Plan of Treatment Health Maintenance Due Date Last Done Comments CT Colonography 1955 FIT 1955 Sigmoidoscopy 1955 Derm Melanoma Skin Check 1955 Dental X-Ray: Bitewings 06/16/2023 06/15/2022, 05/03 Dental Oral Exam 08/26/2023 02/23/2023, 06/15/2022 Dental Prophylaxis 08/26/2023 02/23/2023 Dental X-Ray: Full Mouth 05/28/2025 05/27/2022 Alcohol/Substance Use Screening 07/08/2025 07/08/2024 Depression Screening 07/08/2025 07/08/2024, 07/09/19 SDOH Screening 07/08/2025 07/08/2024 Tobacco Screening 09/09/2025 09/09/2024 FOBT 12/17/2025 12/17/2024, 12/17/2024 DTaP/Tdap/Td Vaccines (2 - Td or Tdap) 02/13/2027 02/13/2017 FIT DNA/Cologuard 12/18/2027 12/17/2024, 12/17/2024 Colonoscopy 12/19/2027 03/16/2015 Colorectal Cancer Screening 12/19/2027 RSV Patients and Patients Aged 60 years or older (1 - 1-dose 75+ series) 2028 Lipid Panel 07/09/2029 07/09/2024, 02/0 09/2023, 04/13/2021, Additional history exists Hepatitis C Screening Completed 06/12/2023 Zoster Vaccines Completed 08/08/2023, 06/09/2023 Pneumococcal Vaccine: 50+ Years Completed 07/08/2024, 03/21/2018 COVID-19 Vaccine Completed 02/20/2025, 05/2023, 02/07/2023, Additional history exists Influenza Vaccine Completed 02/20/2025, , 02/07/2023, Additional history exists HIB Vaccines Aged Out No longer eligi [...] patient's age to complete this topic Meningococcal B Vaccine Aged Out No l onger eligible based on patient's age to complete [...] Procedure Name Priority Date/Time Associated Diagnosis Comments DESTRUCTION OF LESION Routine 01/21/2025 12:24 PM EDT BCC (basal cell carcinoma), face EPIDERMAL / DERMAL SHAVING Routine 12/25/2024 9:48 PM EDT Neoplasm of uncertain behavior DERMATOPATHOLOGY REPORT Routine 12/25/19 4:25 PM EDT LAB COLOGUARD COLON CANCER SCREEN Routine 12/17/2024 10:11 AM EDT LIPID PANEL, STANDARD Routine 07/09/2024 8:08 AM EST Malignant melanoma of skin (CMS/HCC) HEPATITIS C ANTIBODY Routine 06/12/2023 8:44 AM [...] Recently Relevant to Health Maintenance Results * Destruction of lesion (01/21/2025 12:24 PM EDT) Frank Mendez MD - 01/21/2025 12:24 PM EDT Frank Murphy MD 01/21/2025 12:28 PM Destruction of lesion Date/Time: 01/21/2025 12:24 PM Performed by: Frank Murphy MD Authorized by: Frank Murphy MD Consent: Consent obtained: Verbal and written Consent given by: Patient Risks discussed: Infection, pain and poor cosmetic result Alternatives discussed: Delayed treatment [place] protocol: Procedure explained and questions answered to patient or proxy's satisfaction: yes Relevant documents present and verified: no Test results available: no Imaging studies available: no Required blood products, implants, devices, and special equipment available: no Site/side marked: no Immediately prior to procedure, a time out was called: yes Patient identity confirmed: Verbally with patient Number of Lesions: 1 Lesion 1: Body area: head/neck Head/neck location: forehead Initial size (mm): 3 Final defect size (mm): 5 Malignancy: malignant lesion Destruction method: curettage Comments: Curettage followed by Electrodesiccation x 3 after infiltration of 1 ml of 1% lidocaine w/o epinephrine. Lot [id number]. Procedure well tolerated. us Frank Murphy MD DERM PROCEDURE ORDERABLES F inal Result * Shave removal (12/25/2024 9:48 PM EDT) Narrative Frank Murphy MD - 12/25/2024 9:48 PM EDT Frank Murphy MD 12/25/2024 9:52 PM Shave removal Date/Time: 12/25/2024 9:48 PM Performed by: Frank Murphy MD Authorized by: Frank Murphy MD Consent: Consent obtained: Verbal and written Risks discussed: Infection, pain and poor cosmetic result [place] protocol: Procedure explained and questions answered to patient or proxy's satisfaction: yes Relevant documents present and verified: no Test results available: no Imaging studies available: no Required blood products, implants, devices, and special equipment available: no Site/side marked: no Immediately prior to procedure, a time out was called: yes Patient identity confirmed: Verbally with patient Number of Lesions: 1 Lesion 1: Body area: head/neck Head/neck location: forehead Initial size (mm): 3 Final defect size (mm): 4 Malignancy: malignancy unknown Comments: Lidocaine 0.5 ml injected after the skin was cleansed w/ alcohol. A shave biopsy was done and the site cauterize by electrocautery. A band aid was applied. Pt is to cleanse the area daily w/ hydrogen peroxide. us Frank Murphy MD DERM PROCEDURE ORDERABLES F inal Result * Dermatopathology Report (12/24/2024 4:25 PM EDT) Historical Provider LAB BLOOD ORDERABLES Makenna l Result * Cologuard?? colon cancer screening (12/17/2024 10:11 AM EDT) Stool (Rectum) Historical Provider LAB MOLECULAR DIAGNOSTICS ORDERABLES Final Result * (ABNORMAL) Lipid Panel, Standard (07/09/2024 8:08 AM EST) Triglycerides 96 <150 mg/dL [facility] Comment:Desirable Triglyceri de: less than 150 mg/dLBorderline High Triglyceride 150-199 mg/dLHigh Triglyceride: 200-499 mg/dLVery High Triglyceride: greater than or equal to 5OO mg/dL Cholesterol 202(H) <200 mg/dL [facility] Comment:Desirable Cholestero l: less than 200 mg/dLBorderline High Cholesterol: 200-239 mg/dLHigh Cholesterol: greater than 239 mg/dL LDL Cholesterol Calculated 128(H) <100 mg/dL [facility] Comment:Desirable LDL: less than 100 mg/dLNear Optimal/Above Optimal LDL: 110- 129 mg/dLBorderline High LDL: 130-159 mg/dLHigh LDL: 160-189 mg/dLVery High LDL: greater than or equal to 190 mg/dL HDL Cholesterol 55 >40 mg/dL [facility] Comment:Desirable HDL: great er than 40 mg/dL Note: This HDL assay may give artificially low results in patients with liver disease. Blood Venous blood specimen / Unknown 07/09/2024 8:08 AM EST 07/09/2024 2:11 PM EST Frank Murphy MD LAB BLOOD ORDERABLES Final Result [facility] [address] [place] [phone] * Hepatitis C Ab (06/12/2023 8:44 AM EST) Hepatitis C Antibody Nonreactive Nonreactive [facility] Comment:Antibodies to HCV no t detected; does not exclude early acuteHCV infection. Blood Venous blood specimen / Unknown 06/12/2023 8:44 AM EST 06/12/2023 2:36 PM EST us Frank Murphy MD LAB BLOOD ORDERABLES Final Result [facility] [address] [place] [address] [phone] * Colonoscopy (03/16/2015) Colonoscopy Normal Normal Narrative Yasmeen Avalos - 03/16/2015 Recommended 10 year follow up us Historical Provider HEALTH MAINTENANCE Final Result from Last 3 Months or Most Recently Relevant to Health Maintenance Insurance [facility] MEDICARE ADVANTAGE HMO DENTAL [facility] [place] [address] Care Teams Cadmium Liquor Maker Relationship Specialty Start Date End Date Frank Murphy MD [address] [place] [address] PCP - General Internal Medicine 01/02/15
--- OUTSIDE RECORDS SUMMARY | 2025-02-27 15:07 | XMS_ITS | Encounter Summary ---
Author Organization [employer] Address [address] [facility] 7t [place] [address] Care Team Providers Care Psychiatry Instructor Name Role Phone Frank Murphy MD Primary Care Provider [phone] Encounter Details Date Type Department Care Team ([facility] Contact Info) Description 08/08/2023 Orders Only [facility] [address] [place], [place] [phone] Frank Murphy MD [address] [place] [address] Social History Tobacco Use Types Packs/Day Years [...] documented as of this encounter Care Teams Psychiatry Instructor Relationship Specialty Start Date End Date Frank Murphy MD [address] [place] [address] PCP - General Internal Medicine 01/02/15 documented as of this encounter
--- OUTSIDE RECORDS SUMMARY | 2025-02-27 15:07 | XMS_ITS | Encounter Summary ---
Author Organization [employer] Address [address] [facility] 7t [place] [address] Care Team Providers Care Relief Salesperson Name Role Phone Frank Murphy MD Primary Care Provider [phone] Reason for Referral * Imaging (Routine) - Closed Specialty Diagnoses / Procedures Referred By Contac t Referred To Contact Radiology Diagnoses Numbness of left lower extremity Procedures MR Lumbar Spine w/o Contrast Frank Murphy MD [address] [place] [address] Phone: tel: fax: [address] Phone: tel: fax: Referral ID Status Reason Start Date Expiration Date Visits Re quested Visits Authorized [id number] Closed 06/19/2023 06/18/2024 1 1 Encounter Details Date Type Department Care Team (Late st Contact Info) Description 06/19/2023 Orders Only [facility] P[facility] [address] [place], [place] [phone] Frank Murphy MD [address] [place], [place] [phone] Numbness of left lower extremity (Primary Dx) [...] PM EDT Narrative 07/27/2023 4:12 PM EDT [address] [place] [address] Magnetic Resonance Report Signed Patient: Hank Naqvi MR#: [id number] 34 : 1955 Acct:[id number] Age/Sex: 68 / M ADM Date: 07/21/23 Loc: HO.MRI Attending Dr: Frank Murphy MD Ordering Physician: Frank Murphy MD Date of Service: 07/21/23 Procedure(s): MR lumbar spine wo con Accession Number(s): [id number] cc: Frank Murphy MD EXAMINATION: MR LUMBAR [...] in OV> 07/27/23 1609 DD/ 1408 TD/TT: Facilities Manager: Procedure Note Donotuseinterpreter, Image - 07/27/[address] [address] Magnetic Resonance Report Signed Patient: Hank Naqvi#: [id number] 34 : 1955cct:[id number] Age/Sex: 68 / MADM Date: 07/21/23 Loc: HO.MRI Attending Dr: Frank Murphy MD Ordering Physician: Frank Murphy MD Date of Service: 07/21/23 Procedure(s): MR lumbar spine wo con Accession Number(s): [id number] cc: Frank Murphy MD EXAMINATION: MR LUMBAR [...] in OV> 07/27/23 1609 DD/ 1408 TD/TT: Facilities Manager: Frank Murphy MD IMG MRI PROCEDURES Final Re sult documented in this encounter Visit Diagnoses Diagnosis Numbness of left lower extremity- Primary documented in this encounter Additional Health Concerns Assessment Noted Time PHQ-9 Depression Total Score: 4 06/08/19 24 11:45 AM EST documented as of this encounter Care Teams Relief Salesperson Relationship Specialty Start Date End Date Frank Murphy MD [address] [place] [address] PCP - General Internal Medicine 01/02/15 documented as of this encounter
--- OUTSIDE RECORDS SUMMARY | 2025-02-27 15:07 | XMS_ITS | Encounter Summary ---
Author Organization [employer] Address [address] [facility] 7t [place] [address] Care Team Providers Care Analytical Research Program Manager Name Role Phone Frank Murphy MD Primary Care Provider [phone] Encounter Details Date Type Department Care Team ([facility] st Contact Info) Description 03/06/2023 Abstract [facility] [address] [place] [address] Frank Murphy MD [address] [place], [place] [phone] Social History Tobacco Use Types Packs/Day Years Used Date Smoking Tobacco: Never Smokeless Tobacco: Never Alcohol Use Standard Drinks/Week Comments Yes 0 (1 standard drink = 0.6 oz pur e alcohol) Depression Answer Date Recorded Patient Health Questionnaire-9 Score 1 06/10/2022 Housing Stability Answer Date Recorded What is your housing situation today? I have stephensussy song 02/23/[address] you [...] 03/16/2015 documented in this encounter Results * Colonoscopy (03/16/2015) Colonoscopy Normal Normal Narrative Yasmeen Avalos - 03/16/2015 Recommended 10 year follow up Historical Provider HEALTH MAINTENANCE Final Result documented in this encounter Visit Diagnoses Not on filedocumented in this encounter Additional Health Concerns Assessment Noted Time PHQ-9 Depression Total Score: 1 06/10/19 23 2:15 PM EST documented as of this encounter Care Teams Analytical Research Program Manager Relationship Specialty Start Date End Date Frank Murphy MD [address] [place] [address] PCP - General Internal Medicine 01/02/15 documented as of this encounter
--- OUTSIDE RECORDS SUMMARY | 2025-02-27 15:07 | XMS_ITS | Encounter Summary ---
Author Organization [employer] Address [address] [facility] [address] 7[address] [place] [address] Care Team Providers Care Supervisor Hard Candy Name Role Phone Frank Murphy MD Primary Care Provider [phone] Encounter Details Date Type Department Care Team ([facility] st Contact Info) Description 12/30/2024 Orders Only [facility] MED & PEDS [address] [place], [place] [phone] Provider, MD Annmarie Social History Tobacco Use [...] Procedure Name Priority Date/Time Associated Diagnosis Comments DERMATOPATHOLOGY REPORT Routine 12/24/2024 4:25 PM EDT documented in this encounter Results * Dermatopathology Report (12/24/2024 4:25 PM EDT) us Historical Provider LAB BLOOD ORDERABLES Makenna l Result documented in this encounter Visit Diagnoses Not on filedocumented in this encounter Additional Health Concerns Assessment Noted Time PHQ-9 Depression Total Score: 0 07/09/19 25 10:12 AM EST documented as of this encounter Care Teams Supervisor Hard Candy Relationship Specialty Start Date End Date Frank Murphy MD [address] [place] [address] PCP - General Internal Medicine 01/02/15 documented as of this encounter
== END 2025-02-27 11:49 | disposition home or self-care (01) ==
LOC: HO.HOSX 11:48
PROVIDERS: Visit Provider Physician Assistant
DX: M17.0 Bilateral primary osteoarthritis of knee (principal)
CPT/HCPCS: 73562; 99202

== ENCOUNTER 2025-02-27 12:51 | Outpatient (AMB) | payer MEDICARE, SELFPAY ==
--- NOTE | 2025-02-27 13:02 | A.OFFVIS_ITS ---
Intake Visit Reasons: CASHIER GENERAL-Primary OA of both knees Intake Note: Hank is a 69 year old male who presents today as a new patient for an evaluation of bilateral knees. Patient was referred by [facility] for bilateral knee OA, to discuss treatment options. Today patient reports ongoing pain for the past 5+ years. States his discomfort is waking him up at night and at times it is hard getting around. He was previously seen in [place], he was told that he would be a candidate for future TKA's. He states being active, plays basketball and hikes. He finds support with knee bracing. Patient uses ibuprofen as needed. He has burning pain in the left knee that is located at the medial aspect, as for his right knee pain is located at the lateral side. He states right knee is the worse and has clicking. He performs at home stretches 3-4 times a week. 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 Hx of right knee cartilage tear, surgical intervention in 2009. Allergies No Known Allergies (No Known Allergies*) Allergy (Verified 06/15/23 09:05) Medication List - Last Reconciled 02/27/25 by Alexus Goodwin PA-C No Known Home Meds HPI HPI CASHIER GENERAL-Primary OA of both knees: Details: 69 yo male presents to the office today for bilat knee pain. He states he has had knee pain for several years but most recently he feels it is worsening and impacting his ability to perform daily activities. He can walk for more than a while without stopping frequently; however, he states his pace is slow. He does enjoy hiking and states going downhill is worse. He plays bball 1x week, hike, strength trains and stretching. He has not had injections in the past, but he has had a Rt knee As in 2009. He denies cardiac history. There was an incident he had PVC's but states it was stress related and has not had incidence since. He denies any other cardiopulmonary abnormaliites. REPLACED BY [facility] Surgical History (Updated 02/27/25 @ 13:27 by DANNY Oconnor) History of knee surgery Family History Mother No problems noted. Brother Afib Prostate cancer Social History (Updated 02/27/25 @ 13:28 by Kadie F Mario, RMA) Alcohol intake: current Alcohol intake frequency: 0-2 drinks per day Substance Use Type: Marijuana Current occupational status: unemployed Review of Systems Const All systems reviewed & are unremarkable except as noted in HPI and below Physical Exam Const General: cooperative and no acute distress Orientation/consciousness: patient oriented x3 Resp Effort & Inspection: normal respiratory effort and able to speak in complete sentences Cardio Peripheral pulses: Peripheral pulses 2+ throughout Neuro General: patient oriented x3 Extrem Other: Bilat knee normal to inspection with windswept deformity. ROM 5-100. Calf supple non tender, NVI. Results Reviewed Results Reviewed: Xrays were obtained in the office today and personally reviewed by me of bilat knee show severe tricompartmental oa Assessment & Plan Assessment & Plan (1) Osteoarthritis of knees, bilateral: Code(s): M17.0 - Bilateral primary osteoarthritis of knee Category: Medical Plan: We had a lengthy discussion about the extent of his OA and options available which include surgical intervention. He is interested in pursuing Total knee arthroplasty to improve his functional capacity and daily activities. I explained to him the procedure in detail, the hospital stay and details about post op rehab and precautions. He does understand all this and would like to move forward. I did put him in contact with our Nurse Navigator, Macrina who will set him up with pre op planning and book accordingly. All questions were answered and he will see Dr Mcarthur in 4 weeks. Orders: Orders XR Knee Rishi 3V Today M25.561 - Pain in right knee, M25.562 - Pain in left knee Coding Level of Care Code New Pt Level 4 (30336) Complex EM visit Add On G2211 Diagnoses Osteoarthritis of knees, bilateral M17.0
== END 2025-02-27 14:06 | disposition home or self-care (01) ==
LOC: HO.HOS 12:51
PROVIDERS: PCP Internal Medicine; Visit Provider Physician Assistant
DX: M17.0 Bilateral primary osteoarthritis of knee (principal)
CPT/HCPCS: 99204; G2211

== ENCOUNTER → 2025-02-27 12:58 | Outpatient (BNV) | payer MEDICARE, SELFPAY | PROVIDERS: Visit Provider Radiology Diagnostic Radiology | DX: M17.0 Bilateral primary osteoarthritis of knee (principal) | CPT/HCPCS: 73562 ==

== ENCOUNTER → 2025-03-17 13:42 | Outpatient (REF) | payer MEDICARE, SELFPAY ==
--- NOTE | 2025-03-17 13:44 | CA_ITS ---
Transthoracic Echocardiogram Patient (Last, First, Middle): Hank Naqvi, Gender: M Date of : 1955 Age: 70 Procedure Date: 03/17/2025 Procedure Type: Transthoracic Echocardiogram Location: OP Height: 182.88 cm Weight: 85.73 kg BSA: 2.08 m2 Heart Rate: bpm BP: 120 / 70 mmHg Oil Bay Technician: CHASE Referring MD: Dyesi Salas ORIENTAL RUG REPAIRER-C Copper Plater: Dejan Velasquez MD Symptoms: I77.810 - Thoracic aortic ectasia Study Quality: Adequate ECG Rhythm: Sinus Conclusions: - 1. Normal LV ejection fraction of 65-70% with pseudonormal filling pattern next 2. Moderately dilated left atrium 3. Normal cardiac valvular Dopplers next 4. Moderately dilated ascending aorta at 4.7 cm 5. Normal RV systolic pressure 6. No gross pericardial effusion Findings Left Ventricle Normal left ventricular size, thickness, and systolic function. The visually estimated ejection fraction is between 65-70%. Spectral Doppler is indicative of a pseudonormal filling pattern. Right Ventricle Normal right ventricular cavity size and systolic function. Atria The left atrium is moderately dilated. There is no evidence of interatrial shunt. The right atrium is mildly dilated. Aortic Valve Normal aortic valve structure and function. There is no aortic valve stenosis. There is no aortic valve regurgitation. Mitral Valve There is mild anterior and posterior mitral leaflet thickening. There is trace mitral valve regurgitation. There is no mitral valve stenosis. Pulmonic Valve The pulmonic valve is likely normal. Tricuspid Valve Normal tricuspid valve structure. There is trace tricuspid valve regurgitation. The right ventricular systolic pressure is normal. The right ventricular systolic pressure is 31 mmHg. Normal right atrial pressure. There is no evidence of pulmonary hypertension. Great Vessels The pulmonary artery was not well visualized. There is moderate dilatation of the ascending aorta measuring 4.70 cm. Venous The inferior vena cava is normal in size and collapses greater than 50% with inspiration. Pericardium/Pleural There is no evidence of pericardial effusion. Prior Study Comparison Changes noted compared to prior study dated: 08/23/2022. ascending aorta is not moderately dilated. Consider CTA imaging Measurements 2D Linear Measurements IVSd: 0.88 0.6-0.9/0.6-1.0 cm LVIDd: 4.55 3.9-5.3/4.2-5.9 cm LVIDd Index: 2.19 2.4-3.2/2.2-3.1 cm/m2 LVIDs: 2.84 2.0-3.6 cm LVPWd: 0.91 0.7-1.1 cm LA Diam: 3.60 2.7-3.8/3.0-4.0 cm LAIDs Index: 1.73 1.5-2.3 cm/m2 LV Mass: 167.32 67-162/88-224 g LV Mass Index: 80.44 43-95/49-115 g/m2 LVOT Diam: 2.40 3.0+(-)1.3 cm 2D Systolic Function EF 4C: 66.20 >55% EF 2C: 67.30 >55% EF BiP: 66.50 >55% Mitral Valve MV Pk E: 0.85 MV PK A: 0.72 MV Decel Time: 242.00 E/A: 1.20 E'Lateral: 7.83 E'Medial: 5.11 E/E' Med: 16.70 E/E' Lat: 10.90 PHT: 71.00 MVA PHT: 3.10 Decel [place]: 3.53 Aortic Valve AoV Pk Chase: 1.59 AoV Mn Chase: 1.01 AoV VTI: 0.37 AoV Pk Grad: 10.00 Aov Mn Grad: 5.00 CHINO Cont.VTI: 3.44 LVOT LVOT Pk Chase: 1.17 LVOT Mn Chase: 0.84 LVOT VTI: 0.28 LVOT Pk Grad: 5.00 LVOT Mn Grad: 3.00 LVOT Diam: 2.40 LVOT Area: 4.52 Diastolic Function MV Pk E: 0.85 MV Pk A: 0.72 E/A: 1.20 E'Medial: 5.11 E/E' Med: 16.70 E' Laterial: 7.83 E/E' Lat: 10.90 Right Ventricle TAPSE (mm): 29.00 TVS' Chase: 12.90 Tricuspid Valve TR Pk Chase: 2.42 TR Pk Grad: 23.00 RA Press: 8.00 RVSP: 31.00 Great Vessels Aorta Sinus of Valsalva: 4.18 2.0-3.5 cm Ao Asc: 4.70 2.1-3.4 cm Ao Arch: 3.50 Pulmonary Veins Pulm Vein S/D 1.40 Updated in Other Vendor System with Status of Final Dejan Velasquez MD electronically signed on 03/18/2025 11:24:44 AM with status of Final
--- OUTSIDE RECORDS SUMMARY | 2025-03-17 15:51 | XMS_ITS | Encounter Summary ---
Author Organization [employer] Address [address] [place] [address] 7t [place] [address] Care Team Providers Care Floor Layer Apprentice Name Role Phone Frank Murphy MD Primary Care Provider [phone] Encounter Details Date Type Department Care Team [...] on filedocumented in this encounter Care Teams Floor Layer Apprentice Relationship Specialty Start Date End Date Frank Murphy MD [address] [place] [address] PCP - General Internal Medicine 01/02/15 documented as of this encounter
--- OUTSIDE RECORDS SUMMARY | 2025-03-17 15:52 | XMS_ITS | Encounter Summary ---
Author Organization [employer] Address 75 [facility] 7 [place] [address] Care Team Providers Care Infection Control Rn Name Role Phone Frank Murphy MD Primary Care Provider [phone] Reason for Referral * Consultation (Routine) - Closed Specialty Diagnoses / Procedures Referred By Reji jay Referred To Contact Orthopaedic Surgery Diagnoses Primary osteoarthritis of both knees Frank Murphy MD [address] [place] [address] Phone: tel: fax: [facility] Orthopedics [address] [place] [address] Phone: tel: Referral ID Status Reason Start Date Expiration Date V isits Requested Visits Authorized [id number] Closed Specialty Services Required 06/28/2023 06/27/2024 1 1 Encounter Details Date Type Department Care Team (Late st Contact Info) Description 06/27/2023 Orders Only [facility] CH[facility] MED & PEDS [address] [place] [address] Frank Murphy MD [address] [place], [place] [phone] Primary osteoarthritis of both knees Social History [...] PM EDT Narrative 07/21/2023 1:48 PM EDT [address] [address] XRay Report Signed Patient: Hank Naqvi MR#: [id number] [birth year] : 1955 Acct:[id number] Age/Sex: 68 / M ADM Date: 07/21/23 Loc: HO.MRI Attending Dr: Frank Murphy MD Ordering Physician: Carmelo Booth MD Date of Service: 07/21/23 Procedure(s): XR pre mri screening Accession Number(s): [id number] cc: Carmelo Booth MD; Frank Murphy MD [...] in OV> 07/21/23 1344 DD/ 1330 TD/TT: Hand Edger: Procedure Note Donotuseinterpreter, Image - 07/21/[address] [address] XRay Report Signed Patient: Hank NaqviMR#: [id number] [birth year] : 1955cct:[id number] Age/Sex: 68 / MADM Date: 07/21/23 Loc: HO.MRI Attending Dr: Frank Murphy MD Ordering Physician: Carmelo Booth MD Date of Service: 07/21/23 Procedure(s): XR pre mri screening Accession Number(s): [id number] cc: Carmelo Booth MD; Frank Murphy MD [...] in OV> 07/21/23 1344 DD/ 1330 TD/TT: Hand Edger: [facility] External Provider IMG XR PROCEDURES Final Result documented in this encounter Visit Diagnoses Diagnosis Primary osteoarthritis of both knees documented in this encounter Additional Health Concerns Assessment Noted Time PHQ-9 Depression Total Score: 4 06/08/19 24 11:45 AM EST documented as of this encounter Care Teams Infection Control Rn Relationship Specialty Start Date End Date Frank Murphy MD [address] [place] [address] PCP - General Internal Medicine 01/02/15 documented as of this encounter
--- OUTSIDE RECORDS SUMMARY | 2025-03-17 15:52 | XMS_ITS | Encounter Summary ---
Author Organization [employer] Address 75 [facility] 7t [place] [address] Care Team Providers Care Oil Driller Name Role Phone Frank Murphy MD Primary Care Provider [phone] Reason for Referral * Imaging (Routine) - Closed Specialty Diagnoses / Procedures Referred By Contac t Referred To Contact Radiology Diagnoses Numbness of left lower extremity Procedures MR Lumbar Spine w/o Contrast Frank Murphy MD [address] [place] [address] Phone: tel: fax: [address] Phone: tel: fax: Referral ID Status Reason Start Date Expiration Date Visits Re quested Visits Authorized [id number] Closed 06/19/2023 06/18/2024 1 1 Encounter Details Date Type Department Care Team (Late st Contact Info) Description 06/19/2023 Orders Only [facility] CH[facility] MED & PEDS [address] [place], [place] [phone] Frank Murphy MD [address] [place], [place] [phone] Numbness of left lower extremity (Primary Dx) [...] PM EDT Narrative 07/27/2023 4:12 PM EDT [address] [place] [address] Magnetic Resonance Report Signed Patient: Hank Naqvi MR#: [id number] [birth year] : 1955 Acct:[id number] Age/Sex: 68 / M ADM Date: 07/21/23 Loc: HO.MRI Attending Dr: Frank Murphy MD Ordering Physician: Frank Murphy MD Date of Service: 07/21/23 Procedure(s): MR lumbar spine wo con Accession Number(s): [id number] cc: Frank Murphy MD EXAMINATION: MR LUMBAR [...] in OV> 07/27/23 1609 DD/ 1408 TD/TT: Financial Recording Clerk: Procedure Note Donotuseinterpreter, Image - 07/27/[address] [address] Magnetic Resonance Report Signed Patient: Hank Naqvi#: [id number] 32 : 1955cct:[id number] Age/Sex: 68 / MADM Date: 07/21/23 Loc: HO.MRI Attending Dr: Frank Murphy MD Ordering Physician: Frank Murphy MD Date of Service: 07/21/23 Procedure(s): MR lumbar spine wo con Accession Number(s): [id number] cc: Frank Murphy MD EXAMINATION: MR LUMBAR [...] in OV> 07/27/23 1609 DD/ 1408 TD/TT: Financial Recording Clerk: Frank Murphy MD IMG MRI PROCEDURES Final Re sult documented in this encounter Visit Diagnoses Diagnosis Numbness of left lower extremity- Primary documented in this encounter Additional Health Concerns Assessment Noted Time PHQ-9 Depression Total Score: 4 06/08/19 24 11:45 AM EST documented as of this encounter Care Teams Oil Driller Relationship Specialty Start Date End Date Frank Murphy MD [address] [place] [address] PCP - General Internal Medicine 01/02/15 documented as of this encounter
--- OUTSIDE RECORDS SUMMARY | 2025-03-17 15:52 | XMS_ITS | Encounter Summary ---
Author Organization [employer] Address 75 [facility] 7t [place] [address] Care Team Providers Care Eco Industrial Development Consultant Name Role Phone Frank Murphy MD Primary Care Provider [phone] Encounter Details Date Type Department Care Team ([facility] Contact Info) Description 08/08/2023 Orders Only [facility] CH[facility] MED & PEDS [address] [place], [place] [phone] Frank Murphy MD [address] [place] [address] Social History Tobacco Use Types Packs/Day Years [...] documented as of this encounter Care Teams Eco Industrial Development Consultant Relationship Specialty Start Date End Date Frank Murphy MD [address] [place] [address] PCP - General Internal Medicine 01/02/15 documented as of this encounter
--- OUTSIDE RECORDS SUMMARY | 2025-03-17 15:52 | XMS_ITS | Encounter Summary ---
Author Organization [employer] Address 75 [facility] 7t [place] [address] Care Team Providers Care Sprinkler Installer Name Role Phone Frank Murphy MD Primary Care Provider [phone] Encounter Details Date Type Department Care Team ([facility] st Contact Info) Description 03/06/2023 Abstract [facility] [address] [place] [address] Frank Murphy MD [address] [place], [place] [phone] Social History Tobacco Use Types Packs/Day Years [...] documented as of this encounter Care Teams Sprinkler Installer Relationship Specialty Start Date End Date Frank Murphy MD [address] [place] [address] PCP - General Internal Medicine 01/02/15 documented as of this encounter
--- OUTSIDE RECORDS SUMMARY | 2025-03-17 15:52 | XMS_ITS | Encounter Summary ---
Author Organization [employer] Address [address] [facility] [address] 7[address] [place] [address] Care Team Providers Care Air Conditioner Installer Helper Name Role Phone Frank Murphy MD Primary Care Provider [phone] Encounter Details Date Type Department Care Team ([facility] st Contact Info) Description 12/30/2024 Orders Only [facility] CHC MED & PEDS [address] [place], [place] [phone] Provider, MD Annmarie Social History Tobacco Use [...] documented as of this encounter Care Teams Air Conditioner Installer Helper Relationship Specialty Start Date End Date Frank Murphy MD [address] [place] [address] PCP - General Internal Medicine 01/02/15 documented as of this encounter
--- OUTSIDE RECORDS SUMMARY | 2025-03-17 15:52 | XMS_ITS | Encounter Summary ---
Author Organization [employer] Address [address] [facility] [address] [place] [address] Care Team Providers Care Sternman Name Role Phone Frank Murphy MD Primary Care Provider [phone] Encounter Details Date Type Department Care Team ([facility] st Contact Info) Description 01/01/2025 Orders Only [facility] CHC MED & PEDS [address] [place], [place] [phone] Provider, MD Annmarie Social History Tobacco Use [...] documented as of this encounter Care Teams Sternman Relationship Specialty Start Date End Date Frank Murphy MD [address] [place] [address] PCP - General Internal Medicine 01/02/15 documented as of this encounter
--- OUTSIDE RECORDS SUMMARY | 2025-03-17 15:52 | XMS_ITS | Clinical Summary ---
Author Organization [employer] [facility] Address [address] [place] [address] 7t [place] [address] Care Team Providers Care President [place] Name Role Phone Frank Murphy MD Primary Care Provider [phone] Allergies No known active allergies Medications B Complex Vitamins (Vitamin-B Complex) tablet Acti ve Active Problems Problem Noted Date Diagnosed Date BCC (basal cell carcinoma), face 01/21/2025 Osteoarthritis of knee 11/02/2013 Malignant melanoma of skin 06/04/2006 Encounters Date Type Department Care Team Description 02/20/2025 2:30 PM EDT Clinical Support [facility] MED & PEDS [address] [place] [address] Esperanza Garner RN Encounter for vaccination; Encounter for immunization 02/20/2025 Travel 01/21/2025 11:30 AM EDT Office Visit [facility] [address] [place] [address] Frank Murphy MD BCC (basal cell carcinoma), face (Primary Dx) 01/21/2025 Travel 01/01/2025 Orders Only [facility] PED[facility] [address] [place] [address] Annmarie Pitts MD 12/31/2024 Results Follow-Up [facility] [address] [place] [address] Missy Azar, MARTIN Dermatopathology Report 12/31/[address] [facility] [address] [place] [address] Frank Murphy MD 12/30/2024 Orders Only [facility] [address] [place] [address] ProviderAnnmarie MD 12/24/2024 9:00 AM EDT Office Visit [facility] [address] [place] [address] Frank Murphy MD Primary osteoarthritis of both [...] poor cosmetic result Alternatives discussed: Delayed treatment [place] protocol: Procedure explained and questions answered to [...] ml of 1% lidocaine w/o epinephrine. Lot [id number]. Procedure well tolerated. us Frank Murphy MD [...] discussed: Infection, pain and poor cosmetic result [place] protocol: Procedure explained and questions answered to [...] 8:08 AM EST) Triglycerides 96 <150 mg/dL [facility] Comment:Desirable Triglyceri de: less than 150 mg/dLBorderline High Triglyceride 150-199 mg/dLHigh Triglyceride: 200-499 mg/dLVery High Triglyceride: greater than or equal to 5OO mg/dL Cholesterol 202(H) <200 mg/dL [facility] Comment:Desirable Cholestero l: less than 200 mg/dLBorderline High Cholesterol: 200-239 mg/dLHigh Cholesterol: greater than 239 mg/dL LDL Cholesterol Calculated 128(H) <100 mg/dL [facility] Comment:Desirable LDL: less than 100 mg/dLNear Optimal/Above Optimal LDL: 110- 129 mg/dLBorderline High LDL: 130-159 mg/dLHigh LDL: 160-189 mg/dLVery High LDL: greater than or equal to 190 mg/dL HDL Cholesterol 55 >40 mg/dL [facility] Comment:Desirable HDL: great er than 40 mg/dL Note: This HDL assay may give artificially low results in patients with liver disease. Blood Venous blood specimen / Unknown 07/09/2024 8:08 AM EST 07/09/2024 2:11 PM EST Frank Murphy MD LAB BLOOD ORDERABLES Final Result [facility] [address] [place] [phone] * Hepatitis C Ab (06/12/2023 8:44 AM EST) Hepatitis C Antibody Nonreactive Nonreactive [facility] Comment:Antibodies to HCV no t detected; does not exclude early acuteHCV infection. Blood Venous blood specimen / Unknown 06/12/2023 8:44 AM EST 06/12/2023 2:36 PM EST us Frank Murphy MD LAB BLOOD ORDERABLES Final Result [facility] [address] [place] [address] [phone] * Colonoscopy (03/16/2015) Colonoscopy Normal Normal Narrative Yasmeen Avalos - 03/16/2015 Recommended 10 year follow up us Historical Provider HEALTH MAINTENANCE Final Result from Last 3 Months or Most Recently Relevant to Health Maintenance Insurance [facility] MEDICARE ADVANTAGE HMO [facility]AL [facility] Care Teams President [employer] Relationship Specialty Start Date End Date Frank Murphy MD [address] [place] [address] PCP - General Internal Medicine 01/02/15
== END ==
LOC: HO.CARD 13:42
PROVIDERS: PCP Internal Medicine; Visit Provider Nurse Practitioner Family
DX: I77.810 Thoracic aortic ectasia (principal); R00.2 Palpitations
CPT/HCPCS: 93306

== ENCOUNTER → 2025-03-17 13:44 | Outpatient (BNV) | payer MEDICARE, SELFPAY | PROVIDERS: PCP Internal Medicine; Visit Provider Internal Medicine Cardiovascular Disease | DX: I51.7 Cardiomegaly (principal) | CPT/HCPCS: 93306 ==

== ENCOUNTER 2025-03-21 09:16 | Outpatient (AMB) | payer MEDICARE, SELFPAY ==
--- NOTE | 2025-03-21 09:40 | MHC.OFFVIS ---
Vital Signs 03/21/25 09:43 Height 6 ft Weight 190 lb BMI 25.8 BP 110/64 Blood Pressure Location Lt brachial Position Sitting Pulse 59 Pulse Source Monitor Intake Visit Reasons: f/u after echo Intake Note: f/up-echo Electrical Helper Required: No Accompanied by: Self / Same As Patient Allergies No Known Allergies (No Known Allergies*) Allergy (Verified 06/15/23 09:05) Medication List - Last Reconciled 03/21/25 by Deysi Salas NP-C No Known Home Meds HPI HPI f/u after echo: Details: The patient is a 70-year-old male presenting with a dilated ascending aorta and follow up of heart palpitations. The ascending aorta has increased from 4.1 cm to 4.7 cm based on echocardiograms over two years, He notes a family history of aortic aneurysm - mother had surgery for this around age 74. His prior palpitations were determined to be Premature atrial contractions on last visit and the frequency has reduced since then. His brother has atrial fibrillation. The patient experiences muscle strain from physical activities, attributing to some chest area discomfort to this rather than cardiac issues. He exercises routinely which he says he tolerates it well. He is planning knee replacement surgery due to osteoarthritis, with a preoperative appointment scheduled. [facility] Surgical History History of knee surgery Family History Mother No problems noted. Brother Afib Prostate cancer Social History Alcohol intake: current Alcohol intake frequency: 0-2 drinks per day Substance Use Type: Marijuana Current occupational status: unemployed Review of Systems Const All systems reviewed & are unremarkable except as noted in HPI and below Denies chills, Denies fatigue, Denies fever(s), Denies frequent falls, Denies weakness, Denies weight gain and Denies weight loss ENT Denies dizziness Card Denies chest pain, Denies leg edema, Denies lightheadedness, Denies palpitations, Denies dyspnea and Denies dyspnea on exertion Resp Denies cough, Denies dyspnea and Denies dyspnea on exertion GI Denies hematochezia Musc Denies abnormal gait, Denies muscle weakness, Denies numbness, Denies radiating pain into limb and Denies tingling Neuro Denies abnormal gait, Denies dizziness, Denies frequent falls, Denies numbness, Denies tingling and Denies weakness Endo Denies fatigue and Denies palpitations Physical Exam Vital Signs: Last Vital Signs Pulse 59 03/21/25 09:43 BP 110/64 03/21/25 09:43 BMI result Body Mass Index 25.8 Const General: cooperative, healthy appearing, comfortable and no acute distress Orientation/consciousness: patient oriented x3 Neck Neck: Yes normal visual inspection and Yes no JVD Resp Effort & Inspection: normal respiratory effort Auscultation: clear to auscultation bilaterally, no crackles, no rales, no rhonchi and no wheezes Cardio Rate: regular rate Rhythm: regular rhythm Heart sounds: S1 normal heart sound present, S2 normal heart sound present, no gallops, no murmurs and no rubs Neuro General: patient oriented x3 Extrem General: Yes normal to inspection, No no pedal edema and No calf tenderness Psych Appearance: grossly normal Mental Status: mental status grossly normal Speech and movement: Normal speech and movement present Office Procedures EKG Details: Today, read by me, sinus bradycardia, first-degree AV block, rate 59, QTC 431 milliseconds [id number], Complete Assessment & Plan Assessment & Plan (1) Ascending aorta dilatation: Code(s): I77.810 - Thoracic aortic ectasia Category: Medical Plan: Echocardiogram done 08/23/22 showed Ascending aorta dilatation, 4.1 cm. Repeat echocardiogram 03/17/2025 shows ascending aorta 4.7 cm. Family history ascending aortic aneurysm with surgery in his mother. Will check a CTA of the aorta for further evaluation. Instructed on avoidance of heavy lifting > 40 lb, straining activities. He is not on home meds and declined statin. Blood pressure is well controlled 110/64. (2) Palpitations: Code(s): R00.2 - Palpitations Category: Medical Plan: Prior reports of heart palpitations. Personal concerns as his brother has atrial fibrillation. Echo done on 08/23 shows EF 68%, no regional WMA, LA moderately dilated, ascending aorta 4.1 cm. KATHERYN started on 08/23/22 and worn for 23.7 days shows SR average rate 68, rate rate 48-127, PACs and brief runs of PACs/ atrial tach. He was not found to have AFib. EKG today showing sinus bradycardia, first-degree AV block, rate 59. Reviewed that he does have dilated LA which can carry and increased risk for atrial arrythmia. Reviewed reduction in stimulants/ caffiene, activity as tolerated. Cardiology OV in 1 yr, sooner if needed (3) PAC (premature atrial contraction): Code(s): I49.1 - Atrial premature depolarization Category: Medical Plan: As above (4) Preop cardiovascular exam: Code(s): Z01.810 - Encounter for preprocedural cardiovascular examination Category: Medical Plan: Preop for total knee replacement at [facility] with Dr. Hansen, no date yet. Activity level greater than 4 Mets without cardiac symptoms. He does have dilated ascending aorta which will be evaluated by CT scan. Addendum will be made to this note with final clearance. Plan I discussed with the patient the need for a CAT scan to accurately measure the aorta size, given the increase noted on the echocardiogram. We talked about the importance of avoiding heavy lifting to prevent further dilation of the aorta. I explained that if the aorta exceeds 5 cm, a surgical referral may be necessary. We also reviewed the patient's knee osteoarthritis and the upcoming knee replacement surgery, noting the insurance constraints on simultaneous bilateral replacement. The patient understands the plan and agrees to proceed with the recommended tests and follow-up. Orders: Orders CT angio chest aorta Today I77.810 - Thoracic aortic ectasia Patient Instructions: - Schedule and complete the CAT scan as ordered. - Avoid heavy lifting to prevent further aorta dilation. - Follow up with the orthopedic surgeon for knee replacement surgery. - Monitor for any new or worsening symptoms and report them promptly. Patient was informed and verbally consented to the use of an ambient scribe for clinic note documentation during this visit. Visit time spent on chart review, interview, assessment, orders, documentation. Coding Level of Care Code Est Pt Level 4 (63642) Complex EM visit Add On G2211 Diagnoses Ascending aorta dilatation I77.810 Palpitations R00.2 PAC (premature atrial contraction) I49.1 Preop cardiovascular exam Z01.810 CPT Codes EKG - CPT: 68264-Otyauhveyodtzvabx, Complete ([id number]) Time Spent (min) 30
[2025-03-21 09:43] VITALS: BP 110/64; PULSE 59; BMI 25.8
--- OUTSIDE RECORDS SUMMARY | 2025-03-21 10:00 | XMS_ITS | Encounter Summary ---
Author Organization [employer] Address [address] 7[address] [place] [address] Care Team Providers Care Supervisor Carpenters Name Role Phone Frank Murphy MD Primary Care Provider [phone] Encounter Details Date Type Department Care Team ([facility] st Contact Info) Description 01/01/2025 Orders Only [facility] MED & PEDS [address] [place], [place] [phone] Provider, MD Annmarie Social History Tobacco Use [...] as of this encounter Care Teams Supervisor Carpenters Relationship Specialty Start Date End Date Frank Murphy MD [address] [place] [address] PCP - General Internal Medicine 01/02/15 documented as of this encounter
--- OUTSIDE RECORDS SUMMARY | 2025-03-21 10:00 | XMS_ITS | Encounter Summary ---
Author Organization [employer] Address [address] [facility] 7t [place] [address] Care Team Providers Care Logistics Team Lead Name Role Phone Frank Murphy MD Primary Care Provider [phone] Encounter Details Date Type Department Care Team ([facility] st Contact Info) Description 03/06/2023 Abstract [facility] [address] [place] [address] Frank Murphy MD [address] [place], [place] [phone] Social History Tobacco Use Types Packs/Day Years [...] documented as of this encounter Care Teams Logistics Team Lead Relationship Specialty Start Date End Date Frank Murphy MD [address] [place] [address] PCP - General Internal Medicine 01/02/15 documented as of this encounter
--- OUTSIDE RECORDS SUMMARY | 2025-03-21 10:00 | XMS_ITS | Encounter Summary ---
Author Organization [employer] Address [address] [facility] 7 [place] [address] Care Team Providers Care Draughtsman Name Role Phone Frank Murphy MD Primary Care Provider [phone] Reason for Referral * Consultation (Routine) - Closed Specialty Diagnoses / Procedures Referred By Reji jay Referred To Contact Orthopaedic Surgery Diagnoses Primary osteoarthritis of both knees Frank Murphy MD [address] [place] [address] Phone: tel: fax: [facility] Orth[facility]ics [address] [place] [address] Phone: tel: Referral ID Status Reason Start Date Expiration Date V isits Requested Visits Authorized [id number] Closed Specialty Services Required 06/28/2023 06/27/2024 1 1 Encounter Details Date Type Department Care Team (Late st Contact Info) Description 06/27/2023 Orders Only [facility] CH[facility] MED & PEDS [address] [place] [address] Frank Murphy MD [address] [place], [place] [phone] Primary osteoarthritis of both knees Social History [...] PM EDT Narrative 07/21/2023 1:48 PM EDT [address] [address] XRay Report Signed Patient: Hank Naqvi MR#: [id number] 34 : 1955 Acct:[id number] Age/Sex: 68 / M ADM Date: 07/21/23 Loc: HO.MRI Attending Dr: Frank Murphy MD Ordering Physician: Carmelo Booth MD Date of Service: 07/21/23 Procedure(s): XR pre mri screening Accession Number(s): [id number] cc: Carmelo Booth MD; Frank Murphy MD [...] in OV> 07/21/23 1344 DD/ 1330 TD/TT: Tandem Mill Sticker: Procedure Note Donotuseinterpreter, Image - 07/21/[address] [address] XRay Report Signed Patient: Hank NaqviMR#: [id number] 34 : 1955cct:[id number] Age/Sex: 68 / MADM Date: 07/21/23 Loc: HO.MRI Attending Dr: Frank Murphy MD Ordering Physician: Carmelo Booth MD Date of Service: 07/21/23 Procedure(s): XR pre mri screening Accession Number(s): [id number] cc: Carmelo Booth MD; Frank Murphy MD [...] in OV> 07/21/23 1344 DD/ 1330 TD/TT: Tandem Mill Sticker: [facility] External Provider IMG XR PROCEDURES Final Result documented in this encounter Visit Diagnoses Diagnosis Primary osteoarthritis of both knees documented in this encounter Additional Health Concerns Assessment Noted Time PHQ-9 Depression Total Score: 4 06/08/19 24 11:45 AM EST documented as of this encounter Care Teams Draughtsman Relationship Specialty Start Date End Date Frank Murphy MD [address] [place] [address] PCP - General Internal Medicine 01/02/15 documented as of this encounter
--- OUTSIDE RECORDS SUMMARY | 2025-03-21 10:00 | XMS_ITS | Encounter Summary ---
Author Organization [employer] Address [address] [place] [address] 7t [place] [address] Care Team Providers Care Frame Stripper And Crusher Name Role Phone Frank Murphy MD Primary Care Provider [phone] Encounter Details Date Type Department Care Team [...] on filedocumented in this encounter Care Teams Frame Stripper And Crusher Relationship Specialty Start Date End Date Frank Murphy MD [address] [place] [address] PCP - General Internal Medicine 01/02/15 documented as of this encounter
--- OUTSIDE RECORDS SUMMARY | 2025-03-21 10:00 | XMS_ITS | Encounter Summary ---
Author Organization [employer] Address [address] [place] [address] Care Team Providers Care Respiratory Therapist Assistant Name Role Phone Frank Murphy MD Primary Care Provider [phone] Encounter Details Date Type Department Care Team ([facility] st Contact Info) Description 12/30/2024 Orders Only [facility] CH[facility] MED & PEDS [address] [place], [place] [phone] Provider, MD Annmarie Social History Tobacco Use [...] documented as of this encounter Care Teams Respiratory Therapist Assistant Relationship Specialty Start Date End Date Frank Murphy MD [address] [place] [address] PCP - General Internal Medicine 01/02/15 documented as of this encounter
--- OUTSIDE RECORDS SUMMARY | 2025-03-21 10:01 | XMS_ITS | Encounter Summary ---
Author Organization [employer] Address [address] [facility] 7t [place] [address] Care Team Providers Care Brake Operator Name Role Phone Frank Murphy MD Primary Care Provider [phone] Encounter Details Date Type Department Care Team ([facility] Contact Info) Description 08/08/2023 Orders Only [facility] CH[facility] MED & PEDS [address] [place], [place] [phone] Frank Murphy MD [address] [place] [address] Social History Tobacco Use Types Packs/Day Years [...] documented as of this encounter Care Teams Brake Operator Relationship Specialty Start Date End Date Frank Murphy MD [address] [place] [address] PCP - General Internal Medicine 01/02/15 documented as of this encounter
--- OUTSIDE RECORDS SUMMARY | 2025-03-21 10:01 | XMS_ITS | Clinical Summary ---
Author Organization [email or web address] [facility] Address [address] [place] [address] 7t [place] [address] Care Team Providers Care Sustain Engineer Name Role Phone Frank Murphy MD Primary Care Provider [phone] Allergies No known active allergies Medications B Complex Vitamins (Vitamin-B Complex) tablet Acti ve Active Problems Problem Noted Date Diagnosed Date BCC (basal cell carcinoma), face 01/21/2025 Osteoarthritis of knee 11/02/2013 Malignant melanoma of skin 06/04/2006 Encounters Date Type Department Care Team Description 02/20/2025 2:30 PM EDT Clinical Support [facility] MED & PEDS [address] [place] [address] Esperanza Garner RN Encounter for vaccination; Encounter for immunization 02/20/2025 Travel 01/21/2025 11:30 AM EDT Office Visit [facility] [address] [place] [address] Frank Murphy MD BCC (basal cell carcinoma), face (Primary Dx) 01/21/2025 Travel 01/01/2025 Orders Only [facility] [address] [place] [address] Annmarie Pitts MD 12/31/2024 Results Follow-Up [facility] [address] [place] [address] Missy Azar, MARTIN Dermatopathology Report 12/31/2024 Telephone [facility] [address] [place] [address] Frank Murphy MD 12/30/2024 Orders Only [facility] [address] [place] [address] ProviderAnnmarie MD 12/24/2024 9:00 AM EDT Office Visit [facility] [address] [place] [address] Frank Murphy MD Primary osteoarthritis of both [...] 07/08/2025 07/08/2024, 07/09/19 SDOH Screening 07/08/2025 07/08/2024 COVID-19 Vaccine ( season) 2025 02/20/2025, 02/06/2024, 02/07/2023, Additional history exists Tobacco Screening 09/09/2025 09/09/2024 FOBT 12/17/2025 12/17/2024, [...] Pneumococcal Vaccine: 50+ Years Completed 07/08/2024, 03/21/2018 Influenza Vaccine Completed 02/20/2025, , 02/07/2023, Additional [...] poor cosmetic result Alternatives discussed: Delayed treatment [place] protocol: Procedure explained and questions answered to [...] ml of 1% lidocaine w/o epinephrine. Lot [id number]. Procedure well tolerated. us Frank Murphy MD DERM PROCEDURE ORDERABLES F inal Result * Shave removal (12/25/2024 9:48 PM EDT) Frank Mendez MD - 12/25/2024 9:48 PM EDT Frank Murphy MD 12/25/2024 9:52 PM Shave removal Date/Time: 12/25/2024 9:48 PM Performed by: Frank Murphy MD Authorized by: Frank Murphy MD Consent: Consent obtained: Verbal and written Risks discussed: Infection, pain and poor cosmetic result [place] protocol: Procedure explained and questions answered to [...] 8:08 AM EST) Triglycerides 96 <150 mg/dL [facility] Comment:Desirable Triglyceri de: less than 150 mg/dLBorderline High Triglyceride 150-199 mg/dLHigh Triglyceride: 200-499 mg/dLVery High Triglyceride: greater than or equal to 5OO mg/dL Cholesterol 202(H) <200 mg/dL [facility] Comment:Desirable Cholestero l: less than 200 mg/dLBorderline High Cholesterol: 200-239 mg/dLHigh Cholesterol: greater than 239 mg/dL LDL Cholesterol Calculated 128(H) <100 mg/dL [facility] Comment:Desirable LDL: less than 100 mg/dLNear Optimal/Above Optimal LDL: 110- 129 mg/dLBorderline High LDL: 130-159 mg/dLHigh LDL: 160-189 mg/dLVery High LDL: greater than or equal to 190 mg/dL HDL Cholesterol 55 >40 mg/dL [facility] Comment:Desirable HDL: great er than 40 mg/dL Note: This HDL assay may give artificially low results in patients with liver disease. Blood Venous blood specimen / Unknown 07/09/2024 8:08 AM EST 07/09/2024 2:11 PM EST Frank Murphy MD LAB BLOOD ORDERABLES Final Result [facility] [address] [place] [address] [phone] * Hepatitis C Ab (06/12/2023 8:44 AM EST) Hepatitis C Antibody Nonreactive Nonreactive [facility] Comment:Antibodies to HCV no t detected; does not exclude early acuteHCV infection. Blood Venous blood specimen / Unknown 06/12/2023 8:44 AM EST 06/12/2023 2:36 PM EST us Frank Murphy MD LAB BLOOD ORDERABLES Final Result [facility] [address] [place] [address] [phone] * Colonoscopy (03/16/2015) Colonoscopy Normal Normal Narrative Yasmeen Avalos - 03/16/2015 Recommended 10 year follow up Historical Provider HEALTH MAINTENANCE Final Result from Last 3 Months or Most Recently Relevant to Health Maintenance Insurance [facility] MEDICARE ADVANTAGE HMO DENTAL [facility] Care Teams Sustain Engineer Relationship Specialty Start Date End Date Frank Murphy MD [address] [place] [address] PCP - General Internal Medicine 01/02/15
--- OUTSIDE RECORDS SUMMARY | 2025-03-21 10:01 | XMS_ITS | Encounter Summary ---
Author Organization [employer] Address [address] [facility] 7t [place] [address] Care Team Providers Care Mild Disabilities Teacher Name Role Phone Frank Murphy MD Primary Care Provider [phone] Reason for Referral * Imaging (Routine) - Closed Specialty Diagnoses / Procedures Referred By Contac t Referred To Contact Radiology Diagnoses Numbness of left lower extremity Procedures MR Lumbar Spine w/o Contrast Frank Murphy MD [address] [place] [address] Phone: tel: fax: [address] Phone: tel: fax: Referral ID Status Reason Start Date Expiration Date Visits Re quested Visits Authorized [id number] Closed 06/19/2023 06/18/2024 1 1 Encounter Details Date Type Department Care Team (Late st Contact Info) Description 06/19/2023 Orders Only [facility] MED & PEDS [address] [place], [place] [phone] Frank Murphy MD [address] [place], [place] [phone] Numbness of left lower extremity (Primary Dx) [...] PM EDT Narrative 07/27/2023 4:12 PM EDT [address] [place] [address] Magnetic Resonance Report Signed Patient: Hank Naqvi MR#: [id number] 34 : 1955 Acct:[id number] Age/Sex: 68 / M ADM Date: 07/21/23 Loc: HO.MRI Attending Dr: Frank Murphy MD Ordering Physician: Frank Murphy MD Date of Service: 07/21/23 Procedure(s): MR lumbar spine wo con Accession Number(s): [id number] cc: Frank Murphy MD EXAMINATION: MR LUMBAR [...] in OV> 07/27/23 1609 DD/ 1408 TD/TT: Digital Associate: Procedure Note Donotuseinterpreter, Image - 07/27/[address] [address] Magnetic Resonance Report Signed Patient: Hank Naqvi#: [id number] 32 : 1955cct:[id number] Age/Sex: 68 / MADM Date: 07/21/23 Loc: HO.MRI Attending Dr: Frank Murphy MD Ordering Physician: Frank Murphy MD Date of Service: 07/21/23 Procedure(s): MR lumbar spine wo con Accession Number(s): [id number] cc: Frank Murphy MD EXAMINATION: MR LUMBAR [...] in OV> 07/27/23 1609 DD/ 1408 TD/TT: Digital Associate: Frank Murphy MD IMG MRI PROCEDURES Final Re sult documented in this encounter Visit Diagnoses Diagnosis Numbness of left lower extremity- Primary documented in this encounter Additional Health Concerns Assessment Noted Time PHQ-9 Depression Total Score: 4 06/08/19 24 11:45 AM EST documented as of this encounter Care Teams Mild Disabilities Teacher Relationship Specialty Start Date End Date Frank Murphy MD [address] [place] [address] PCP - General Internal Medicine 01/02/15 documented as of this encounter
== END 2025-03-21 10:10 | disposition home or self-care (01) ==
LOC: HO.HCS 09:17
PROVIDERS: PCP Internal Medicine; Visit Provider Nurse Practitioner Family
DX: I77.810 Thoracic aortic ectasia (principal); R00.2 Palpitations; I49.1 Atrial premature depolarization; Z01.810 Encounter for preprocedural cardiovascular examination
CPT/HCPCS: 93010; 99214; G2211

== ENCOUNTER → 2025-03-21 09:16 | Outpatient (BNVA) | payer MEDICARE, SELFPAY | PROVIDERS: PCP Internal Medicine; Visit Provider Nurse Practitioner Family | DX: Z01.810 Encounter for preprocedural cardiovascular examination (principal); I77.810 Thoracic aortic ectasia; R00.2 Palpitations; I49.1 Atrial premature depolarization; I44.0 Atrioventricular block, first degree | CPT/HCPCS: 93005; 99212 ==

== ENCOUNTER 2025-04-10 09:47 | Outpatient (AMB) | payer MEDICARE, SELFPAY ==
--- NOTE | 2025-04-10 09:59 | A.OFFVIS_ITS ---
Intake Visit Reasons: OV-Primary OA of both knees Intake Note: Hank is a 70 year old male who presents today for a follow up of his Bilateral Knee OA. He was last seen with TM who referred him to discuss TKA. Hx: Ascending aorta dilation Allergies No Known Allergies (No Known Allergies*) Allergy (Verified 06/15/23 09:05) HPI HPI OV-Primary OA of both knees: Details: Hank is a 70 year old male who presents today for a follow up of his Bilateral Knee OA. He states he has had knee pain for several years but most recently he feels it is worsening and impacting his ability to perform daily activities. He can walk for About 60 minutes stopping frequently; however, he states his pace is slow. He does enjoy hiking and states going downhill is worse. He plays [employer] 1x week, hike, strength trains and stretching. He has not had injections in the past, but he has had a Rt knee As in 2009. [facility] Surgical History History of knee surgery Family History Mother No problems noted. 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 Mild medial compartment tenderness on the left. Office Procedures Joint Inj/Aspir; Non-Pain Clin Joint Injection/Drain Details: Injected 1 mL of Decadron and 3 mL 1% lidocaine and 3 mL of 0.25% Marcaine. Site was prepped using aseptic technique. Patient tolerated the procedure well. Shoulders, Hips, Knees, Knee Large Joint Injection : Bilateral Knee Coding Procedure code (CPT) selection complete Results Reviewed Results Reviewed: I personally reviewed relevant radiographs. 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 Severe. Assessment & Plan Assessment & Plan (1) Osteoarthritis of knees, bilateral: Code(s): M17.0 - Bilateral primary osteoarthritis of knee Category: Medical Plan: I had a long discussion with Hank and I think it is a little aggressive to pursue knee replacement. He is very functional and while he does have radiographic evidence of disease I do not think we should law into knee replacement. I injected bilateral knees and I will see him in 3 months' time. Coding Level of Care Code Est Pt Level 3 (87033) Diagnoses Osteoarthritis of knees, bilateral M17.0 CPT Codes Shoulders, Hips, Knees, - Knee Large Joint Injection : Bilateral Knee ([id number])
--- OUTSIDE RECORDS SUMMARY | 2025-04-10 11:20 | XMS_ITS | Encounter Summary ---
Author Organization [employer] Address [address] [facility] 7t [place] [address] Care Team Providers Care Shredder Picker Name Role Phone Frank Murphy MD Primary Care Provider [phone] Encounter Details Date Type Department Care Team ([facility] Contact Info) Description 08/08/2023 Orders Only [facility] MED & PEDS [address] [place], [place] [phone] Frank Murphy MD [address] [place] [address] Social History Tobacco Use Types Packs/Day Years [...] documented as of this encounter Care Teams Shredder Picker Relationship Specialty Start Date End Date Frank Murphy MD [address] [place] [address] PCP - General Internal Medicine 01/02/15 documented as of this encounter
--- OUTSIDE RECORDS SUMMARY | 2025-04-10 11:20 | XMS_ITS | Encounter Summary ---
Author Organization [employer] Address [address] [facility] [address] 7t [place] [address] Care Team Providers Care Senior Business Intelligence Analyst Name Role Phone Frank Murphy MD Primary Care Provider [phone] Encounter Details Date Type Department Care Team ([facility] st Contact Info) Description 12/30/2024 Orders Only [facility] CHC MED & PEDS [address] [place], [place] [phone] Provider, MD Annmarie Social History Tobacco Use [...] documented as of this encounter Care Teams Senior Business Intelligence Analyst Relationship Specialty Start Date End Date Frank Murphy MD [address] [place] [address] PCP - General Internal Medicine 01/02/15 documented as of this encounter
--- OUTSIDE RECORDS SUMMARY | 2025-04-10 11:20 | XMS_ITS | Encounter Summary ---
Author Organization [employer] Address [address] [facility] [address] 7t [place] [address] Care Team Providers Care Deputy Clerk Name Role Phone Frank Murphy MD Primary Care Provider [phone] Encounter Details Date Type Department Care Team ([facility] st Contact Info) Description 01/01/2025 Orders Only [facility] CHC MED & PEDS [address] [place], [place] [phone] Provider, MD Annmarie Social History Tobacco Use [...] documented as of this encounter Care Teams Deputy Clerk Relationship Specialty Start Date End Date Frank Murphy MD [address] [place] [address] PCP - General Internal Medicine 01/02/15 documented as of this encounter
--- OUTSIDE RECORDS SUMMARY | 2025-04-10 11:20 | XMS_ITS | Encounter Summary ---
Author Organization [employer] Address [address] [facility] 7t [place] [address] Care Team Providers Care Hand Sewer Shoes Name Role Phone Frank Murphy MD Primary Care Provider [phone] Encounter Details Date Type Department Care Team ([facility] st Contact Info) Description 03/06/2023 Abstract [facility] [address] [place] [address] Frank Murphy MD [address] [place], [place] [phone] Social History Tobacco Use Types Packs/Day Years [...] documented as of this encounter Care Teams Hand Sewer Shoes Relationship Specialty Start Date End Date Frank Murphy MD [address] [place] [address] PCP - General Internal Medicine 01/02/15 documented as of this encounter
--- OUTSIDE RECORDS SUMMARY | 2025-04-10 11:20 | XMS_ITS | Clinical Summary ---
Author Organization [employer] [facility] Address [address] [place] [address] 7t [place] [address] Care Team Providers Care Reference Investigator Name Role Phone Frank Murphy MD Primary Care Provider Allergies No known active allergies Medications B Complex Vitamins (Vitamin-B Complex) tablet Acti ve Active Problems Problem Noted Date Diagnosed Date BCC (basal cell carcinoma), face 01/21/2025 Osteoarthritis of knee 11/02/2013 Malignant melanoma of skin 06/04/2006 Encounters Date Type Department Care Team Description 02/20/2025 2:30 PM EDT Clinical Support [facility] MED & PEDS [address] [place] [address] Esperanza Garner RN Encounter for vaccination; Encounter for immunization 02/20/2025 Travel 01/21/2025 11:30 AM EDT Office Visit [facility] MED & PEDS [address] [place] [address] Frank Murphy MD BCC (basal cell carcinoma), face (Primary Dx) 01/21/2025 Travel from Last 3 Months Immunizations Immunization [...] PM EDT BCC (basal cell carcinoma), face LAB COLOGUARD COLON CANCER SCREEN Routine 12/17/2024 [...] Destruction of lesion (01/21/2025 12:24 PM EDT) Narrative Frank Murphy MD - 01/21/2025 12:24 PM EDT Frank Murphy MD 01/21/2025 12:28 PM Destruction of lesion Date/Time: 01/21/2025 12:24 PM Performed by: Frank Murphy MD Authorized by: Frank Murphy MD Consent: Consent obtained: Verbal and written Consent given by: Patient Risks discussed: Infection, pain and poor cosmetic result Alternatives discussed: Delayed treatment [place] protocol: Procedure explained and questions answered to [...] ml of 1% lidocaine w/o epinephrine. Lot [id number]. Procedure well tolerated. Frank Murphy MD DERM PROCEDURE ORDERABLES F inal Result * Cologuard?? colon cancer screening (12/17/2024 10:11 AM EDT) Stool (Rectum) Historical Provider LAB MOLECULAR DIAGNOSTICS ORDERABLES Final Result * (ABNORMAL) Lipid Panel, Standard (07/09/2024 8:08 AM EST) Triglycerides 96 <150 mg/dL [facility] Comment:Desirable Triglyceri de: less than 150 mg/dLBorderline High Triglyceride 150-199 mg/dLHigh Triglyceride: 200-499 mg/dLVery High Triglyceride: greater than or equal to 5OO mg/dL Cholesterol 202(H) <200 mg/dL [facility] Comment:Desirable Cholestero l: less than 200 mg/dLBorderline High Cholesterol: 200-239 mg/dLHigh Cholesterol: greater than 239 mg/dL LDL Cholesterol Calculated 128(H) <100 mg/dL [facility] Comment:Desirable LDL: less than 100 mg/dLNear Optimal/Above Optimal LDL: 110- 129 mg/dLBorderline High LDL: 130-159 mg/dLHigh LDL: 160-189 mg/dLVery High LDL: greater than or equal to 190 mg/dL HDL Cholesterol 55 >40 mg/dL [facility] Comment:Desirable HDL: great er than 40 mg/dL Note: This HDL assay may give artificially low results in patients with liver disease. Blood Venous blood specimen / Unknown 07/09/2024 8:08 AM EST 07/09/2024 2:11 PM EST us Frank Murphy MD LAB BLOOD ORDERABLES Final Result Performing Organization Address [facility] Co de Phone Number [facility] [address] [place] [address] [phone] * Hepatitis C Ab (06/12/2023 8:44 AM EST) Hepatitis C Antibody Nonreactive Nonreactive [facility] Comment:Antibodies to HCV no t detected; does not exclude early acuteHCV infection. Blood Venous blood specimen / Unknown 06/12/2023 8:44 AM EST 06/12/2023 2:36 PM EST Frank Murphy MD LAB BLOOD ORDERABLES Final Result Performing Organization Address [facility] Co de Phone Number [facility] [address] [place] [phone] * Colonoscopy (03/16/2015) Colonoscopy Normal Normal Narrative Yasmeen Avalos - 03/16/2015 Recommended 10 year follow up us Historical Provider HEALTH MAINTENANCE Final Result from Last 3 Months or Most Recently Relevant to Health Maintenance Insurance DENTAL [facility] Care Teams Reference Investigator Relationship Specialty Start Date End Date Farnk Murphy MD [address] [place] [address] PCP - General Internal Medicine 01/02/15
--- OUTSIDE RECORDS SUMMARY | 2025-04-10 11:20 | XMS_ITS | Encounter Summary ---
Author Organization [employer] Address 75 [facility] 7 [place] [address] Care Team Providers Care Fire Marshal Refinery Name Role Phone Frank Murphy MD Primary Care Provider [phone] Reason for Referral * Consultation (Routine) - Closed Specialty Diagnoses / Procedures Referred By Reji jay Referred To Contact Orthopaedic Surgery Diagnoses Primary osteoarthritis of both knees Frank Murphy MD [address] [place] [address] Phone: tel: fax: [facility] [place] [place] Orthopedics [address] [place] [address] [address] [place] [address] Phone: tel: Referral ID Status Reason Start Date Expiration Date V isits Requested Visits Authorized [id number] Closed Specialty Services Required 06/28/2023 06/27/2024 1 1 Encounter Details Date Type Department Care Team (Late st Contact Info) Description 06/27/2023 Orders Only [facility] CHC MED & PEDS [address] [place], [place] [phone] Frank Murphy MD [address] [place], [place] [phone] Primary osteoarthritis of both knees Social History [...] PM EDT Narrative 07/21/2023 1:48 PM EDT [address] [place] [address] XRay Report Signed Patient: Hank Naqvi MR#: [id number] 34 : 1955 Acct:[id number] Age/Sex: 68 / M ADM Date: 07/21/23 Loc: HO.MRI Attending Dr: Frank Murphy MD Ordering Physician: Carmelo Booth MD Date of Service: 07/21/23 Procedure(s): XR pre mri screening Accession Number(s): [id number] cc: Carmelo Booth MD; Frank Murphy MD [...] in OV> 07/21/23 1344 DD/ 1330 TD/TT: Aircraft Engine Specialist: Procedure Note Donotuseinterpreter, Image - 07/21/[address] [address] XRay Report Signed Patient: Hank NaqviMR#: [id number] 32 : 1955cct:[id number] Age/Sex: 68 / MADM Date: 07/21/23 Loc: HO.MRI Attending Dr: Frank Murphy MD Ordering Physician: Carmelo Booth MD Date of Service: 07/21/23 Procedure(s): XR pre mri screening Accession Number(s): [id number] cc: Carmelo Booth MD; Frank Murphy MD [...] in OV> 07/21/23 1344 DD/ 1330 TD/TT: Aircraft Engine Specialist: [facility] External Provider IMG XR PROCEDURES Final Result documented in this encounter Visit Diagnoses Diagnosis Primary osteoarthritis of both knees documented in this encounter Additional Health Concerns Assessment Noted Time PHQ-9 Depression Total Score: 4 06/08/19 24 11:45 AM EST documented as of this encounter Care Teams Fire Marshal Refinery Relationship Specialty Start Date End Date Frank Murphy MD [address] [place] [address] PCP - General Internal Medicine 01/02/15 documented as of this encounter
--- OUTSIDE RECORDS SUMMARY | 2025-04-10 11:20 | XMS_ITS | Encounter Summary ---
Author Organization [employer] Address [address] [place] [address] 7 [place] [address] Care Team Providers Care Engine Inspector Name Role Phone Frank Murphy MD Primary Care Provider [phone]- [phone] Reason for Referral * Imaging (Routine) - Closed Specialty Diagnoses / Procedures Referred By Contac t Referred To Contact Radiology Diagnoses Numbness of left lower extremity Procedures MR Lumbar Spine w/o Contrast Frank Murphy MD [address] [place] [address] Phone: tel: fax: [address] [address] Phone: tel: fax: Referral ID Status Reason Start Date Expiration Date Visits Re quested Visits Authorized [id number] Closed 06/19/2023 06/18/2024 1 1 Encounter Details Date Type Department Care Team (Late st Contact Info) Description 06/19/2023 Orders Only [facility] CHC MED & PEDS [address] [place], [place] [phone] Frank Murphy MD [address] [place], [place] [phone] Numbness of left lower extremity (Primary Dx) [...] PM EDT Narrative 07/27/2023 4:12 PM EDT [address] [address] Magnetic Resonance Report Signed Patient: Hank Naqvi MR#: [id number] [birth year] : 1955 Acct:[id number] Age/Sex: 68 / M ADM Date: 07/21/23 Loc: HO.MRI Attending Dr: Frank Murphy MD Ordering Physician: Frank Murphy MD Date of Service: 07/21/23 Procedure(s): MR lumbar spine wo con Accession Number(s): [id number] cc: Frank Murphy MD EXAMINATION: MR LUMBAR [...] in OV> 07/27/23 1609 DD/ 1408 TD/TT: Light Industrial: Procedure Note Donotuseinterpreter, Image - 07/27/[address] [address] Magnetic Resonance Report Signed Patient: Hank Naqvi#: [id number] [birth year] : 1955cct:[id number] Age/Sex: 68 / MADM Date: 07/21/23 Loc: HO.MRI Attending Dr: Frank Murphy MD Ordering Physician: Frank Murphy MD Date of Service: 07/21/23 Procedure(s): MR lumbar spine wo con Accession Number(s): [id number] cc: Frank Murphy MD EXAMINATION: MR LUMBAR [...] in OV> 07/27/23 1609 DD/ 1408 TD/TT: Light Industrial: Frakn Murphy MD IM MRI PROCEDURES Final Re sult documented in this encounter Visit Diagnoses Diagnosis Numbness of left lower extremity- Primary documented in this encounter Additional Health Concerns Assessment Noted Time PHQ-9 Depression Total Score: 4 06/08/19 24 11:45 AM EST documented as of this encounter Care Teams Engine Inspector Relationship Specialty Start Date End Date Frank Murphy MD [address] [place] [address] PCP - General Internal Medicine 01/02/15 documented as of this encounter
--- OUTSIDE RECORDS SUMMARY | 2025-04-10 11:20 | XMS_ITS | Encounter Summary ---
Author Organization [employer] Address [address] [place] [address] 7t [place] [address] Care Team Providers Care Field Installation Technician Name Role Phone Frank Murphy MD Primary Care Provider [phone]- [phone] Encounter Details Date Type Department Care Team [...] on filedocumented in this encounter Care Teams Field Installation Technician Relationship Specialty Start Date End Date Frank Murphy MD [address] [place] [address] PCP - General Internal Medicine 01/02/15 documented as of this encounter
== END 2025-04-10 11:02 | disposition home or self-care (01) ==
LOC: HO.HOS 09:48
PROVIDERS: Visit Provider Orthopaedic Surgery
DX: M17.0 Bilateral primary osteoarthritis of knee (principal)
CPT/HCPCS: 20610; 99213

== ENCOUNTER → 2025-04-10 09:47 | Outpatient (BNVA) | payer MEDICARE, SELFPAY | PROVIDERS: Visit Provider Orthopaedic Surgery | DX: M17.0 Bilateral primary osteoarthritis of knee (principal) | CPT/HCPCS: 20610; 99212; J0665; J1100; J2003 ==

== ENCOUNTER 2025-04-15 14:46 | Outpatient (REF) | payer MEDICARE, SELFPAY ==
[2025-04-15 18:32] LABS: Anion Gap 11 (12-20); Blood Urea Nitrogen 20 mg/dL (9-16); Calcium 8.6 mg/dL (8.4-10.2); Carbon Dioxide 25 mmol/L (22-29); Chloride 111 mmol/L (96-108); Estimated Glomerular Filt Rate > 60; Potassium 4.2 mmol/L (3.3-5.1); Sodium 143 mmol/L (135-145)
--- OUTSIDE RECORDS SUMMARY | 2025-04-15 20:52 | XMS_ITS | Encounter Summary ---
Author Organization [employer] Address [address] [place] [address] 7 [place] [address] Care Team Providers Care Feed Elevator Worker Name Role Phone Frank Murphy MD Primary Care Provider [phone]- [phone] Reason for Referral * Imaging (Routine) - Closed Specialty Diagnoses / Procedures Referred By Contac t Referred To Contact Radiology Diagnoses Numbness of left lower extremity Procedures MR Lumbar Spine w/o Contrast Frank Murphy MD [address] [place] [address] Phone: tel: fax: [address] [address] Phone: tel: fax: Referral ID Status Reason Start Date Expiration Date Visits Re quested Visits Authorized [id number] Closed 06/19/2023 06/18/2024 1 1 Encounter Details Date Type Department Care Team (Late st Contact Info) Description 06/19/2023 Orders Only [facility] CHC MED & PEDS [address] [place], [place] [phone] Frank Murphy MD [address] [place], [place] [phone] Numbness of left lower extremity (Primary Dx) [...] PM EDT Narrative 07/27/2023 4:12 PM EDT [address] [address] Magnetic Resonance Report Signed Patient: Hank Naqvi MR#: [id number] 34 : 1955 Acct:[id number] Age/Sex: 68 / M ADM Date: 07/21/23 Loc: HO.MRI Attending Dr: Frank Murphy MD Ordering Physician: Frank Murphy MD Date of Service: 07/21/23 Procedure(s): MR lumbar spine wo con Accession Number(s): [id number] cc: Frank Murphy MD EXAMINATION: MR LUMBAR [...] in OV> 07/27/23 1609 DD/ 1408 TD/TT: Braddisher: Procedure Note Donotuseinterpreter, Image - 07/27/[address] [address] Magnetic Resonance Report Signed Patient: Hank Naqvi#: [id number] 32 : 1955cct:[id number] Age/Sex: 68 / MADM Date: 07/21/23 Loc: HO.MRI Attending Dr: Frank Murphy MD Ordering Physician: Frank Murphy MD Date of Service: 07/21/23 Procedure(s): MR lumbar spine wo con Accession Number(s): [id number] cc: Frank Murphy MD EXAMINATION: MR LUMBAR [...] in OV> 07/27/23 1609 DD/ 1408 TD/TT: Braddisher: Frank Murphy MD IM MRI PROCEDURES Final Re sult documented in this encounter Visit Diagnoses Diagnosis Numbness of left lower extremity- Primary documented in this encounter Additional Health Concerns Assessment Noted Time PHQ-9 Depression Total Score: 4 06/08/19 24 11:45 AM EST documented as of this encounter Care Teams Feed Elevator Worker Relationship Specialty Start Date End Date Frank Murphy MD [address] [place] [address] PCP - General Internal Medicine 01/02/15 documented as of this encounter
--- OUTSIDE RECORDS SUMMARY | 2025-04-15 20:52 | XMS_ITS | Encounter Summary ---
Author Organization [employer] Address 75 [facility] 7t [place] [address] Care Team Providers Care Natural Sciences Department Chair Name Role Phone Frank Murphy MD Primary Care Provider [phone] Encounter Details Date Type Department Care Team ([facility] st Contact Info) Description 03/06/2023 Abstract [facility] MEDICINE [address] [place] [address] Frank Murphy MD [address] [place], [place] [phone] Social History Tobacco Use Types Packs/Day Years [...] documented as of this encounter Care Teams Natural Sciences Department Chair Relationship Specialty Start Date End Date Frank Murphy MD [address] [place] [address] PCP - General Internal Medicine 01/02/15 documented as of this encounter
--- OUTSIDE RECORDS SUMMARY | 2025-04-15 20:52 | XMS_ITS | Encounter Summary ---
Author Organization [employer] Address [address] [facility] [address] 7t [place] [address] Care Team Providers Care Asian Studies Program Chair Name Role Phone Frank Murphy MD Primary Care Provider [phone] Encounter Details Date Type Department Care Team ([facility] st Contact Info) Description 12/30/2024 Orders Only [facility] CHC MED & PEDS [address] [place], [place] [phone] Provider, MD Annmarie Social History Tobacco Use [...] documented as of this encounter Care Teams Asian Studies Program Chair Relationship Specialty Start Date End Date Frank Murphy MD [address] [place] [address] PCP - General Internal Medicine 01/02/15 documented as of this encounter
--- OUTSIDE RECORDS SUMMARY | 2025-04-15 20:52 | XMS_ITS | Encounter Summary ---
Author Organization [employer] Address [address] [facility] 7 [place] [address] Care Team Providers Care Websphere Administrator Name Role Phone Frank Murphy MD Primary Care Provider [phone] Reason for Referral * Consultation (Routine) - Closed Specialty Diagnoses / Procedures Referred By Reji jay Referred To Contact Orthopaedic Surgery Diagnoses Primary osteoarthritis of both knees Frank Murphy MD [address] [place] [address] Phone: tel: fax: [facility] Orthopedics [address] [place] [address] [address] [place] [address] Phone: tel: Referral ID Status Reason Start Date Expiration Date V isits Requested Visits Authorized [id number] Closed Specialty Services Required 06/28/2023 06/27/2024 1 1 Encounter Details Date Type Department Care Team (Late st Contact Info) Description 06/27/2023 Orders Only [facility] CHC MED & PEDS [address] [place], [place] [phone] Frank Murphy MD [address] [place], [place] [phone] Primary osteoarthritis of both knees Social History [...] PM EDT Narrative 07/21/2023 1:48 PM EDT [address] [place] [address] XRay Report Signed Patient: Hank Naqvi MR#: [id number] 34 : 1955 Acct:[id number] Age/Sex: 68 / M ADM Date: 07/21/23 Loc: HO.MRI Attending Dr: Frank Murphy MD Ordering Physician: Carmelo Booth MD Date of Service: 07/21/23 Procedure(s): XR pre mri screening Accession Number(s): [id number] cc: Carmelo Booth MD; Frank Murphy MD [...] in OV> 07/21/23 1344 DD/ 1330 TD/TT: Marble Cutter: Procedure Note Donotuseinterpreter, Image - 07/21/[address] [address] XRay Report Signed Patient: Hank NaqviMR#: [id number] 34 : 1955cct:[id number] Age/Sex: 68 / MADM Date: 07/21/23 Loc: HO.MRI Attending Dr: Frank Murphy MD Ordering Physician: Carmelo Booth MD Date of Service: 07/21/23 Procedure(s): XR pre mri screening Accession Number(s): [id number] cc: Carmelo Booth MD; Frank Murphy MD [...] in OV> 07/21/23 1344 DD/ 1330 TD/TT: Marble Cutter: [facility] External Provider IMG XR PROCEDURES Final Result documented in this encounter Visit Diagnoses Diagnosis Primary osteoarthritis of both knees documented in this encounter Additional Health Concerns Assessment Noted Time PHQ-9 Depression Total Score: 4 06/08/19 24 11:45 AM EST documented as of this encounter Care Teams Websphere Administrator Relationship Specialty Start Date End Date Frank Murphy MD [address] [place] [address] PCP - General Internal Medicine 01/02/15 documented as of this encounter
--- OUTSIDE RECORDS SUMMARY | 2025-04-15 20:52 | XMS_ITS | Encounter Summary ---
Author Organization [employer] Address [address] [place] [address] 7t [place] [address] Care Team Providers Care Laundry Route Driver Name Role Phone Frank Murphy MD Primary Care Provider [phone]- [phone] Encounter Details Date Type Department Care Team [...] on filedocumented in this encounter Care Teams Laundry Route Driver Relationship Specialty Start Date End Date Frank Murphy MD [address] [place] [address] PCP - General Internal Medicine 01/02/15 documented as of this encounter
--- OUTSIDE RECORDS SUMMARY | 2025-04-15 20:52 | XMS_ITS | Encounter Summary ---
Author Organization [employer] Address [address] [facility] [address] 7t [place] [address] Care Team Providers Care Landscaping Specialist Name Role Phone Frank Murphy MD Primary Care Provider [phone] Encounter Details Date Type Department Care Team ([facility] st Contact Info) Description 01/01/2025 Orders Only [facility] CHC MED & PEDS [address] [place], [place] [phone] Provider, MD Annmarie Social History Tobacco Use [...] documented as of this encounter Care Teams Landscaping Specialist Relationship Specialty Start Date End Date Frank Murphy MD [address] [place] [address] PCP - General Internal Medicine 01/02/15 documented as of this encounter
--- OUTSIDE RECORDS SUMMARY | 2025-04-15 20:52 | XMS_ITS | Encounter Summary ---
Author Organization [employer] Address 75 [facility] 7t [place] [address] Care Team Providers Care Network Support Manager Name Role Phone Frank Murphy MD Primary Care Provider [phone] Encounter Details Date Type Department Care Team ([facility] Contact Info) Description 08/08/2023 Orders Only [facility] CHC MED & PEDS [address] [place], [place] [phone] Frank Murphy MD [address] [place] [address] Social History Tobacco Use Types Packs/Day Years [...] documented as of this encounter Care Teams Network Support Manager Relationship Specialty Start Date End Date Frank Murphy MD [address] [place] [address] PCP - General Internal Medicine 01/02/15 documented as of this encounter
--- OUTSIDE RECORDS SUMMARY | 2025-04-15 20:52 | XMS_ITS | Clinical Summary ---
Author Organization [employer] Address [address] [place] [address] 7t [place] [address] Care Team Providers Care Access Assoc Name Role Phone Frank Murphy MD Primary Care Provider Allergies No known active allergies Medications B Complex Vitamins (Vitamin-B Complex) tablet Acti ve Active Problems Problem Noted Date Diagnosed Date BCC (basal cell carcinoma), face 01/21/2025 Osteoarthritis of knee 11/02/2013 Malignant melanoma of skin 06/04/2006 Encounters Date Type Department Care Team Description 02/20/2025 2:30 PM EDT Clinical Support [facility] [address] [place] [address] Esperanza Garner RN Encounter for vaccination; Encounter for immunization 02/20/2025 Travel 01/21/2025 11:30 AM EDT Office Visit [facility] [address] [place] [address] Frank Murphy MD BCC (basal cell carcinoma), [...] poor cosmetic result Alternatives discussed: Delayed treatment [place] protocol: Procedure explained and questions answered to [...] ml of 1% lidocaine w/o epinephrine. Lot [id number]. Procedure well tolerated. Frank Murphy MD DERM PROCEDURE ORDERABLES F inal Result * Cologuard?? colon cancer screening (12/17/2024 10:11 AM EDT) Stool (Rectum) Historical Provider LAB MOLECULAR DIAGNOSTICS ORDERABLES Final Result * (ABNORMAL) Lipid Panel, Standard (07/09/2024 8:08 AM EST) Triglycerides 96 <150 mg/dL [facility] Comment:Desirable Triglyceri de: less than 150 mg/dLBorderline High Triglyceride 150-199 mg/dLHigh Triglyceride: 200-499 mg/dLVery High Triglyceride: greater than or equal to 5OO mg/dL Cholesterol 202(H) <200 mg/dL [facility] Comment:Desirable Cholestero l: less than 200 mg/dLBorderline High Cholesterol: 200-239 mg/dLHigh Cholesterol: greater than 239 mg/dL LDL Cholesterol Calculated 128(H) <100 mg/dL [facility] Comment:Desirable LDL: less than 100 mg/dLNear Optimal/Above Optimal LDL: 110- 129 mg/dLBorderline High LDL: 130-159 mg/dLHigh LDL: 160-189 mg/dLVery High LDL: greater than or equal to 190 mg/dL HDL Cholesterol 55 >40 mg/dL [facility] Comment:Desirable HDL: great er than 40 mg/dL Note: This HDL assay may give artificially low results in patients with liver disease. Blood Venous blood specimen / Unknown 07/09/2024 8:08 AM EST 07/09/2024 2:11 PM EST us Frank Murphy MD LAB BLOOD ORDERABLES Final Result Performing Organization Address [facility] Co de Phone Number [facility] [address] [place] [address] [phone] * Hepatitis C Ab (06/12/2023 8:44 AM EST) Hepatitis C Antibody Nonreactive Nonreactive [facility] Comment:Antibodies to HCV no t detected; does not exclude early acuteHCV infection. Blood Venous blood specimen / Unknown 06/12/2023 8:44 AM EST 06/12/2023 2:36 PM EST Frank Murphy MD LAB BLOOD ORDERABLES Final Result Performing Organization Address [facility] Co de Phone Number [facility] [address] [place] [phone] * Colonoscopy (03/16/2015) Colonoscopy Normal Normal Narrative Yasmeen Avalos - 03/16/2015 Recommended 10 year follow up us Historical Provider HEALTH MAINTENANCE Final Result from Last 3 Months or Most Recently Relevant to Health Maintenance Insurance DENTAL [facility] Care Teams Access Assoc Relationship Specialty Start Date End Date Frank Murphy MD [address] [place] [address] PCP - General Internal Medicine 01/02/15
== END 2025-04-15 14:47 | disposition home or self-care (01) ==
LOC: HO.CHCLDS 14:46
PROVIDERS: Visit Provider Nurse Practitioner Family
DX: I77.810 Thoracic aortic ectasia (principal)
CPT/HCPCS: 36415; 80048

== ENCOUNTER 2025-05-02 07:40 | Outpatient (REF) | payer MEDICARE, SELFPAY ==
--- NOTE | ~2025-05-02 | CT_ITS ---
EXAMINATION: CT CHEST ANGIOGRAPHY WITH IV CONTRAST INDICATION: I77.810 - Thoracic aortic ectasia COMPARISON: There are no prior studies available for comparison. TECHNIQUE: Helical CT scan of the chest was performed following administration of intravenous contrast (65 mL Omnipaque 350). The contrast bolus was timed to optimally opacify the thoracic aorta. Thin sections were obtained through the pulmonary arteries. Coronal and sagittal reformatted images were generated. 3D/MIP reconstructed images are also obtained and reviewed. This CT exam was performed with one or more of the following dose reduction techniques: automated exposure control, adjustment of the mA and/or kV according to patient size, use of iterative reconstruction technique. DLP: 173 mGy-cm CHEST: THYROID: The thyroid gland is unremarkable. LUNGS: There is subsegmental atelectasis in the right lower lobe. MEDIASTINUM: There is no mediastinal lymphadenopathy. YONI: There is no hilar lymphadenopathy. CARDIOVASCULATURE: The heart is normal in size. There is no pericardial effusion. The following aortic measurements were obtained: Aortic root: 4.3 cm in diameter. Ascending thoracic aorta 4.6 cm in diameter. Proximal aortic arch: 3.5 cm in diameter. Distal aortic arch: 2.9 cm in diameter. The ascending thoracic aorta: 2.8 cm in diameter. DEGREE OF CORONARY CALCIFICATION: not evaluable, due to dense contrast in the coronary arteries. PLEURA: There is no pleural effusion. No pneumothorax. MAIN AIRWAYS: The mainstem bronchi and proximal branches are patent. AXILLA: There is no axillary lymphadenopathy. UPPER ABDOMEN: The visualized portions of the liver, spleen, and adrenals are unremarkable. BONES AND SOFT TISSUES: There is degenerative disc disease of the spine. CT/CT angio chest aorta IMPRESSION: 1. Aneurysmal dilatation of the ascending thoracic aorta measuring 4.6 cm in diameter. 2. Segmental atelectasis in the right lower lobe. Electronically signed by: Hank Rabago MD 05/02/2025 08:42 AM [facility]
--- OUTSIDE RECORDS SUMMARY | 2025-05-02 07:42 | XMS_ITS | Encounter Summary ---
Author Organization [employer] Address [address] [facility] 7t [place] [address] Care Team Providers Care Svp Research & Ebusiness Operations Name Role Phone Frank Murphy MD Primary Care Provider [phone] Encounter Details Date Type Department Care Team ([facility] st Contact Info) Description 03/06/2023 Abstract [facility] [address] [place] [address] Frakn Murphy MD [address] [place], [place] [phone] Social History Tobacco Use Types Packs/Day Years [...] documented as of this encounter Care Teams Svp Research & Ebusiness Operations Relationship Specialty Start Date End Date Frank Murphy MD [address] [place] [address] PCP - General Internal Medicine 01/02/15 documented as of this encounter
--- OUTSIDE RECORDS SUMMARY | 2025-05-02 07:42 | XMS_ITS | Encounter Summary ---
Author Organization [employer] Address [address] [place] [address] 7t [place] [address] Care Team Providers Care Pharm Spec Name Role Phone Frank Murphy MD Primary Care Provider [phone]- [phone] Encounter Details Date Type Department Care Team [...] on filedocumented in this encounter Care Teams Pharm Spec Relationship Specialty Start Date End Date Frank Murphy MD [address] [place] [address] PCP - General Internal Medicine 01/02/15 documented as of this encounter
--- OUTSIDE RECORDS SUMMARY | 2025-05-02 07:42 | XMS_ITS | Clinical Summary ---
Author Organization [employer] Address [address] [place] [address] Care Team Providers Care Mainspring Winder And Oiler Name Role Phone Unavailable Primary Care Provider Unavailabl e Social History Tobacco Use Types Packs/Day Years Used Date Smoking Tobacco: Never Assessed Sex and Gender Information Value Date Recorded Sex Assigned at Not on file Legal Sex Male 5:37 AM EST Gender Identity Not on file Sexual Orientation Not on file Plan of Treatment Not on file
--- OUTSIDE RECORDS SUMMARY | 2025-05-02 07:42 | XMS_ITS | Encounter Summary ---
Author Organization [employer] Address [address] 7[address] [place] [address] Care Team Providers Care Manager Customs Name Role Phone Frank Murphy MD Primary Care Provider [phone] Encounter Details Date Type Department Care Team ([facility] st Contact Info) Description 01/01/2025 Orders Only [facility] [address] [place], [place] [phone] Provider, MD Annmarie Social History Tobacco Use [...] documented as of this encounter Care Teams Manager Customs Relationship Specialty Start Date End Date Frank Murphy MD [address] [place] [address] PCP - General Internal Medicine 01/02/15 documented as of this encounter
--- OUTSIDE RECORDS SUMMARY | 2025-05-02 07:42 | XMS_ITS | Encounter Summary ---
Author Organization [employer] Address [address] [place] [address] 7 [place] [address] Care Team Providers Care Mumps Developer Name Role Phone Frank Murphy MD Primary Care Provider [phone]- [phone] Reason for Referral * Imaging (Routine) - Closed Specialty Diagnoses / Procedures Referred By Contac t Referred To Contact Radiology Diagnoses Numbness of left lower extremity Procedures MR Lumbar Spine w/o Contrast Frank Murphy MD [address] [place] [address] Phone: tel: fax: [address] [address] Phone: tel: fax: Referral ID Status Reason Start Date Expiration Date Visits Re quested Visits Authorized [id number] Closed 06/19/2023 06/18/2024 1 1 Encounter Details Date Type Department Care Team (Late st Contact Info) Description 06/19/2023 Orders Only [facility] [address] [place], [place] [phone] Frank Murphy MD [address] [place], [place] [phone] Numbness of left lower extremity (Primary Dx) [...] PM EDT Narrative 07/27/2023 4:12 PM EDT [address] [address] Magnetic Resonance Report Signed Patient: Hank Naqvi MR#: [id number] [birth year] : 1955 Acct:[id number] Age/Sex: 68 / M ADM Date: 07/21/23 Loc: HO.MRI Attending Dr: Frank Murphy MD Ordering Physician: Frank Murphy MD Date of Service: 07/21/23 Procedure(s): MR lumbar spine wo con Accession Number(s): [id number] cc: Frank Murphy MD EXAMINATION: MR LUMBAR [...] in OV> 07/27/23 1609 DD/ 1408 TD/TT: Respite Coordinator: Procedure Note Donotuseinterpreter, Image - 07/27/[address] [address] Magnetic Resonance Report Signed Patient: Hank Naqvi#: [id number] 32 : 1955cct:[id number] Age/Sex: 68 / MADM Date: 07/21/23 Loc: HO.MRI Attending Dr: Frank Murphy MD Ordering Physician: Frank Murphy MD Date of Service: 07/21/23 Procedure(s): MR lumbar spine wo con Accession Number(s): [id number] cc: Frank Murphy MD EXAMINATION: MR LUMBAR [...] in OV> 07/27/23 1609 DD/ 1408 TD/TT: Respite Coordinator: Frank Murphy MD IM MRI PROCEDURES Final Re sult documented in this encounter Visit Diagnoses Diagnosis Numbness of left lower extremity- Primary documented in this encounter Additional Health Concerns Assessment Noted Time PHQ-9 Depression Total Score: 4 06/08/19 24 11:45 AM EST documented as of this encounter Care Teams Mumps Developer Relationship Specialty Start Date End Date Frank Murphy MD [address] [place] [phone] PCP - General Internal Medicine 01/02/15 documented as of this encounter
--- OUTSIDE RECORDS SUMMARY | 2025-05-02 07:42 | XMS_ITS | Encounter Summary ---
Author Organization [employer] Address [address] 7[address] [place] [address] Care Team Providers Care Sr. Director Product Management Name Role Phone Frank Murphy MD Primary Care Provider [phone] Encounter Details Date Type Department Care Team ([facility] st Contact Info) Description 12/30/2024 Orders Only [facility]S [address] [place], [place] [phone] Provider, MD Annmarie Social History Tobacco Use [...] documented as of this encounter Care Teams Sr. Director Product Management Relationship Specialty Start Date End Date Frank Murphy MD [address] [place] [address] PCP - General Internal Medicine 01/02/15 documented as of this encounter
--- OUTSIDE RECORDS SUMMARY | 2025-05-02 07:42 | XMS_ITS | Encounter Summary ---
Author Organization [employer] Address [address] [facility] 7t [place] [address] Care Team Providers Care Record Changer Assembler Name Role Phone Frank Murphy MD Primary Care Provider [phone] Encounter Details Date Type Department Care Team ([facility] Contact Info) Description 08/08/2023 Orders Only [facility] [address] [place], [place] [phone] Frank Murphy MD [address] [place] [address] Social History Tobacco Use Types Packs/Day Years [...] documented as of this encounter Care Teams Record Changer Assembler Relationship Specialty Start Date End Date Frank Murphy MD [address] [place] [address] PCP - General Internal Medicine 01/02/15 documented as of this encounter
--- OUTSIDE RECORDS SUMMARY | 2025-05-02 07:42 | XMS_ITS | Encounter Summary ---
Author Organization [employer] Address [address] [facility] 7 [place] [address] Care Team Providers Care Cementer Hand Name Role Phone Frank Murphy MD Primary Care Provider [phone] Reason for Referral * Consultation (Routine) - Closed Specialty Diagnoses / Procedures Referred By Reji jay Referred To Contact Orthopaedic Surgery Diagnoses Primary osteoarthritis of both knees Frank Murphy MD [address] [place] [address] Phone: tel: fax: [facility] [address] [place] [address] Dr [address] [place] [address] Phone: tel: Referral ID Status Reason Start Date Expiration Date V isits Requested Visits Authorized [id number] Closed Specialty Services Required 06/28/2023 06/27/2024 1 1 Encounter Details Date Type Department Care Team (Late st Contact Info) Description 06/27/2023 Orders Only [facility] [address] [place], [place] [phone] Frank Murphy MD [address] [place], [place] [phone] Primary osteoarthritis of both knees Social History [...] EDT Narrative 07/21/2023 1:48 PM EDT [address] [place] [address] XRay Report Signed Patient: Hank Naqvi MR#: [id number] [birth year] : 1955 Acct:[id number] Age/Sex: 68 / M ADM Date: 07/21/23 Loc: HO.MRI Attending Dr: Frank Murphy MD Ordering Physician: Carmelo Booth MD Date of Service: 07/21/23 Procedure(s): XR pre mri screening Accession Number(s): [id number] cc: Carmelo Booth MD; Frank Murphy MD [...] in OV> 07/21/23 1344 DD/ 1330 TD/TT: Electrophysiology Technologist: Procedure Note Donotuseinterpreter, Image - 07/21/[address] [address] XRay Report Signed Patient: Hank NaqviMR#: [id number] 32 : 1955cct:[id number] Age/Sex: 68 / MADM Date: 07/21/23 Loc: HO.MRI Attending Dr: Frank Murphy MD Ordering Physician: Carmelo Booth MD Date of Service: 07/21/23 Procedure(s): XR pre mri screening Accession Number(s): [id number] cc: Carmelo Booth MD; Frank Murphy MD [...] in OV> 07/21/23 1344 DD/ 1330 TD/TT: Electrophysiology Technologist: [facility] External Provider IMG XR PROCEDURES Final Result documented in this encounter Visit Diagnoses Diagnosis Primary osteoarthritis of both knees documented in this encounter Additional Health Concerns Assessment Noted Time PHQ-9 Depression Total Score: 4 06/08/19 24 11:45 AM EST documented as of this encounter Care Teams Cementer Hand Relationship Specialty Start Date End Date Frank Murphy MD [address] [place] [address] PCP - General Internal Medicine 01/02/15 documented as of this encounter
--- OUTSIDE RECORDS SUMMARY | 2025-05-02 07:43 | XMS_ITS | Clinical Summary ---
Author Organization [employer] Address [address] [place] [address] 7t [place] [address] Care Team Providers Care Hospice Home Health Aide Name Role Phone Frank Murphy MD Primary Care Provider [phone] Allergies No known active allergies Medications B Complex Vitamins (Vitamin-B Complex) tablet Acti ve Active Problems Problem Noted Date Diagnosed Date BCC (basal cell carcinoma), face 01/21/2025 Osteoarthritis of knee 11/02/2013 Malignant melanoma of skin 06/04/2006 Encounters Date Type Department Care Team Description 02/20/2025 2:30 PM EDT Clinical Support [facility] [address] [place] [address] Esperanza Garner RN Encounter for vaccination; Encounter for immunization 02/20/2025 Travel from Last 3 Months Immunizations Immunization [...] Recently Relevant to Health Maintenance Results * Cologuard?? colon cancer screening (12/17/2024 10:11 AM EDT) Stool (Rectum) Historical Provider LAB MOLECULAR DIAGNOSTICS ORDERABLES Final Result * (ABNORMAL) Lipid Panel, Standard (07/09/2024 8:08 AM EST) Triglycerides 96 <150 mg/dL [facility] Comment:Desirable Triglyceri de: less than 150 mg/dLBorderline High Triglyceride 150-199 mg/dLHigh Triglyceride: 200-499 mg/dLVery High Triglyceride: greater than or equal to 5OO mg/dL Cholesterol 202(H) <200 mg/dL [facility] Comment:Desirable Cholestero l: less than 200 mg/dLBorderline High Cholesterol: 200-239 mg/dLHigh Cholesterol: greater than 239 mg/dL LDL Cholesterol Calculated 128(H) <100 mg/dL [facility] Comment:Desirable LDL: less than 100 mg/dLNear Optimal/Above Optimal LDL: 110- 129 mg/dLBorderline High LDL: 130-159 mg/dLHigh LDL: 160-189 mg/dLVery High LDL: greater than or equal to 190 mg/dL HDL Cholesterol 55 >40 mg/dL [facility] Comment:Desirable HDL: great er than 40 mg/dL Note: This HDL assay may give artificially low results in patients with liver disease. Blood Venous blood specimen / Unknown 07/09/2024 8:08 AM EST 07/09/2024 2:11 PM EST Frank Murphy MD LAB BLOOD ORDERABLES Final Result [facility] [address] [place] [address] [phone] * Hepatitis C Ab (06/12/2023 8:44 AM EST) Hepatitis C Antibody Nonreactive Nonreactive [facility] Comment:Antibodies to HCV no t detected; does not exclude early acuteHCV infection. Blood Venous blood specimen / Unknown 06/12/2023 8:44 AM EST 06/12/2023 2:36 PM EST us Frank Murphy MD LAB BLOOD ORDERABLES Final Result [facility] [address] [place] [address] [phone] * Colonoscopy (03/16/2015) Colonoscopy Normal Normal Narrative Yasmeen Avalos - 03/16/2015 Recommended 10 year follow up Historical Provider HEALTH MAINTENANCE Final Result from Last 3 Months or Most Recently Relevant to Health Maintenance Insurance [employer] MEDICARE ADVANTAGE HMO DENTAL [facility] Care Teams Hospice Home Health Aide Relationship Specialty Start Date End Date Frank Murphy MD [address] [place], [place] [phone] PCP - General Internal Medicine 01/02/15
[2025-05-02] MEDS: iohexoL 350 MG/ML 100 ML INFUS..BTL IV (08:33)
== END 2025-05-02 07:41 | disposition home or self-care (01) ==
LOC: HO.CT 07:40
PROVIDERS: PCP Internal Medicine; Visit Provider Nurse Practitioner Family
DX: I77.810 Thoracic aortic ectasia (principal)
CPT/HCPCS: 71275; Q9967

== ENCOUNTER → 2025-05-02 07:42 | Outpatient (BNV) | payer MEDICARE, SELFPAY | PROVIDERS: PCP Internal Medicine; Visit Provider Radiology Diagnostic Radiology | DX: I77.810 Thoracic aortic ectasia (principal); J98.11 Atelectasis | CPT/HCPCS: 71275 ==